=== PATIENT | male | born 1970 | race Caucasian/White ===

== ENCOUNTER 2018-02-21 15:27 | Inpatient (IN) | payer OTHER ==
[2018-02-21 17:04] VITALS: BMI 33.8
--- NOTE | 2018-02-21 17:50 | HP ---
Screened but not Admitted - Documentation of Visit Screened but not Admitted: Yes Left Prior to Completion of Assessment: No Insurance Authorization Denied: No Patient Does Not Meet Criteria for Admission: No Level of Care Recommended at this Time: ER Evaluation/Care (elevated BP with headache) Alternative Treatment/Long-Term Info Provided: No Additional Information/Explanation: Patient is a 47 yo male, presents today seeking detox for xanax, klonopin, and alcohol. Patient also uses cocaine and heroin. Patient is linked to [facility] : Promessa on 140 mg methadone, and was not medicated today. Patient c/o of headaches, presents very irritable and agiated. Reports hx of HTN and DM and non-adherence with medications. Reports suppose to take HCTZ, Procardia, Vasotec and metformin, does not recall doses or last time medication was taken, but express its been a few weeks. DENNIS: 0.00. v/s BP 119/108, P98.6, RR18, T98.6. utox: + sukhwinder, opi, oxy, MTD. BGM : 197. Patient sent to [facility] for further evaluation, transferred via [facility], endorsed to LIZZIE Merida and Dr. Mustafa
--- NOTE | 2018-02-21 22:40 | HP ---
CIWA Score - CIWA Score Nausea/Vomitin-Mild Nausea/No Vomiting Muscle Tremors: 4-Moderate,w/Arms Extend Anxiety: 4-Mod. Anxious/Guarded Agitation: 4-Moderately Restless Paroxysmal Sweats: 4-Forehead w/Sweat Beads Orientation: 0-Oriented Tacttile Disturbances: 0-None Auditory Disturbances: 2-Mild Harshness/Frighten Visual Disturbances: 2-Mild Sensitivity Headache: 0-None Present CIWA-Ar Total Score: 21 Admission ROS S - HPI Chief Complaint: C/O WITHDRAWAL SX'S SEEKING DETOX FROM OPIATES, ALCOHOL AND BENZO'S Allergies/Adverse Reactions: Allergies Allergy/AdvReac Type Severity Reaction Status Date / Time No Known Allergies Allergy Verified 02/21/18 18:23 History of Present Illness: 47 Y.O. MALE HERE ADMITTED TO DETOX FOR BENZO AND ALCOHOL DEPENDENCE. HE IS ALSO WITH HX/O OPIOID DEPENDENCE. CURRENTLY ON METHADONE 140 MG DAILY. REPORTS HE WAS NOT MEDICATED TODAY. HE IS REFERRED BACK FROM [facility] AFTER BEING SENT THEIR EARLIER FOR ELEVATED B/P WITH HEADACHE. HE HAS SINCE BEEN TREATED AND STABILIZED AND MEDICALLY CLEARED TO ADMIT TO DETOX. CLIENT REPORTS HX/O T2 DM, HTN, NON COMPLAINT WITH MEDICATIONS REGIMEN.THIS IS HIS FIRST VISIT [facility] BUT IS KNOWN TO OTHER INPATIENT PROGRAMS. REPORTS LAST DETOX WAS ABOUT 6-7 MONTHS AGO AT [facility].REPORTS LONGEST CLEAN TIME 10 YEARS WHILE INCARCERATED. DENIES HX/O DRUG OVERDOSE, PAST/PRESENT SI/HI/ATTEMPTS, SEIZURE D/O b/p 166/81 p-71 Medical Decision Making - Medical Decision Making 02/21/18 21:21 this 47 yo ,male BIBA form [facility] for HTN initial BP= 199/108 and had c/o of cluster headache 02/21/18 21:23 repeat BP= 149/85 labs reviewed, normal renal labs 02/21/18 21:31 tox screen positive cocaine,opiates I spoke with HORTICULTURE SUPERVISOR at [facility] ,Greg Brantley and this pt can be sent back 02/21/18 21:48 he has a h/o cluster headaches and now he feels much better after receiving the oxygen. CBC is within normal limits. His chemistries are unremarkable. His glucose is within normal limits Impression poorly controlled high blood pressure due to noncompliance with meds Polysubstance abuse. Plan discharge to [facility] for detox <Sadie Goodson - Last Filed: 02/21/18 21:49> *DC/Admit/Observation/Transfer - Attestations Scribe Attestion: Documentation prepared by Jose Alberto Fajardo, acting as medical review coordinator for Sadie Goodson MD. <Jose Alberto Fajardo - Last Filed: 02/21/18 20:34> <Sadie Goodson - Last Filed: 02/21/18 21:49> Diagnosis at time of Disposition: Poorly-controlled hypertension, Polysubstance abuse Migraine Qualifiers: Migraine type: unspecified Status migrainosus presence: without status migrainosus Intractability: not intractable Qualified Code(s): G43.909 - Migraine, unspecified, not intractable, without status migrainosus - Discharge Dispostion Disposition: HOME Condition at time of disposition: Good - Referrals Referrals: Verna Berumen MD [Primary Care Provider] - - Patient Instructions Printed Discharge Instructions: Type 2 Diabetes, DI for High Blood Pressure, DI for Cocaine Use Disorder Additional Instructions: please take your blood pressure medications - Post Discharge Activity Exam Limitations: No Limitations - Ebola screening Have you traveled outside of the country in the last 21 days: No (N) Have you had contact with anyone from an Ebola affected area: No Have you been sick,other than usual withdrawal symptoms: No Do you have a fever: No - Review of Systems Constitutional: Chills, Loss of Appetite, Malaise, Night Sweats, Changes in sleep EENT: reports: Nose Congestion (RUNNY) Respiratory: reports: No Symptoms reported Cardiac: reports: No Symptoms Reported GI: reports: Nausea, Poor Appetite, Abdominal cramping : reports: No Symptoms Reported Musculoskeletal: reports: Back Pain, Joint Pain, Neck Pain Integumentary: reports: Flushing, Sweating Neuro: reports: No Symptoms reported Endocrine: reports: Other (DM) Hematology: reports: No Symptoms Reported Psychiatric: reports: Anxious, Depressed Other Systems: Reviewed and Negative Patient History - Patient Medical History Hx Anemia: No Hx Asthma: No Hx Chronic Obstructive Pulmonary Disease (COPD): No Hx Cancer: No Hx Cardiac Disorders: No Hx Congestive Heart Failure: No Hx Hypertension: Yes (DOES NOT RECALL NAME OF MED) Hx Hypercholesterolemia: No Hx Pacemaker: No HX Cerebrovascular Accident: No Hx Seizures: No Hx Dementia: No Hx Diabetes: Yes (METFORMIN) Hx Gastrointestinal Disorders: No Hx Liver Disease: No Hx Genitourinary Disorders: No Hx Sexually Transmitted Disorders: No Hx Renal Disease (ESRD): No Hx Thyroid Disease: No Hx Human Immunodeficiency Virus (HIV): No Hx Hepatitis C: No Hx Depression: Yes Hx Suicide Attempt: No Hx Bipolar Disorder: No Hx Schizophrenia: No Other Medical History: ANXIETY - Patient Surgical History Past Surgical History: Yes Hx Orthopedic Surgery: Yes (R HIP REPLACEMNT, SPINALL FUSION TO C SPINE) Anesthesia Reaction: Yes - PPD History Previous Implant?: Yes Documented Results: Negative w/o proof Implanted On Prior [facility] Admission?: No PPD to be Administered?: Yes - Smoking Cessation Smoking history: Current every day smoker Have you smoked in the past 12 months: Yes Aproximately how many cigarettes per day: 30 Hx Chewing Tobacco Use: No Initiated information on smoking cessation: Yes 'Breaking Loose' booklet given: 02/21/18 - Substance & Tx. History Hx Alcohol Use: Yes Hx Substance Use: Yes Substance Use Type: Alcohol, Opiates (HEROIN), Prescribed (METHdone), Tranquilizers (XANAX/KLONOPINS) Hx Substance Use Treatment: Yes ([facility]) - Substances Abused beer Route: Oral Frequency: Daily Amount used: 1-6 PACK 24 OZ Age of first use: 13 Date of Last Use: 02/20/18 HEROIN Route: Inhalation Frequency: Daily Amount used: 10 BAGS Age of first use: 22 Date of Last Use: 02/20/18 XANAX Route: Oral Frequency: Daily Amount used: 2 STICKS Age of first use: 25 Date of Last Use: 02/20/18 COCAINE Route: Inhalation Frequency: Daily Amount used: 2GM Age of first use: 47 Date of Last Use: 02/20/18 Family Disease History - Family Disease History Family Disease History: Other: Grandparent (HTN, DM), Mother (HTN, DM), Sister ( HTN) Admission Physical Exam [facility]HS - Vital Signs Vital Signs: Vital Signs - 24 hr 02/21/18 17:02 Temperature 98.6 F Pulse Rate 68 Respiratory 18 Rate Blood Pressure 199/108 H - Physical General Appearance: Yes: Appropriately Dressed, Moderate Distress, Tremorous, Irritable, Sweating, Anxious HEENTM: Yes: EOMI, Normocephalic, Normal Voice, JUAN A, Pharynx Normal, Nasal Congestion (RUNNY NOSE) Respiratory: Yes: Chest Non-Tender, Lungs Clear, Normal Breath Sounds, No Respiratory Distress, No Accessory Muscle Use Neck: Yes: No masses,lesions,Nodules, Supple, Trachea in good position Breast: Yes: Breast Exam Deferred Cardiology: Yes: Regular Rhythm, Regular Rate, S1, S2 Abdominal: Yes: Normal Bowel Sounds, Non Tender, Soft Genitourinary: Yes: Other (NO C/O) Back: Yes: Normal Inspection Musculoskeletal: Yes: full range of Motion, Gait Steady, Joint Stiffness (NECK) Extremities: Yes: Normal Capillary Refill, Normal Range of Motion, Non-Tender, Tremors Neurological: Yes: Fully Oriented, Alert, Motor Strength 5/5, Depressed Affect Integumentary: Yes: Cold (COOL), Diaphoresis, Other (FLUSHED) Lymphatic: Yes: Within Normal Limits - Diagnostic (1) Methadone maintenance therapy patient Current Visit: Yes Status: Chronic (2) Cocaine abuse, uncomplicated Current Visit: Yes Status: Acute (3) Sedative, hypnotic or anxiolytic dependence with withdrawal, uncomplicated Current Visit: Yes Status: Acute (4) Opioid abuse, continuous Current Visit: Yes Status: Acute (5) Alcohol dependence with uncomplicated withdrawal Current Visit: Yes Status: Acute (6) Depressed affect Current Visit: Yes Status: Acute (7) HTN (hypertension) Current Visit: Yes Status: Chronic Qualifiers: Hypertension type: essential hypertension Qualified Code(s): I10 - Essential (primary) hypertension (8) Non-compliance Current Visit: Yes Status: Chronic (9) Diabetes Current Visit: Yes Status: Chronic Qualifiers: Diabetes mellitus type: type 2 (10) Migraine Current Visit: No Status: Acute Qualifiers: Migraine type: unspecified Status migrainosus presence: without status migrainosus Intractability: not intractable Qualified Code(s): G43.909 - Migraine, unspecified, not intractable, without status migrainosus Cleared for Admission [facility] - Detox or Rehab [facility] Level of Care: Medically Managed Detox Regimen/Protocol: Valium Claeared for Rehab Admission: No S Breath Alcohol Content Breath Alcohol Content: 0 Urine Drug Screen - Results Drug Screen Negative: No Urine Drug Screen Results: KHRIS-Cocaine, OPI-Opiates, BZO-Benzodiazepines, MTD- Methadone, OXY-Oxycodone
[2018-02-22] MEDS ORDERED: cloNIDine HCL 0.1 MG TABLET PO ONE (00:01)
[2018-02-22] MEDS ORDERED: P-EPHED 60MG/TRIPROLIDI 2.5MG TABLET PO PRN (00:02)
[2018-02-22] MEDS ORDERED: LOPERAMIDE HCL 2 MG CAPSULE PO PRN (00:02)
[2018-02-22] MEDS ORDERED: MAG HYDROX/AL HYDROX/SIMETH 30 ML UNIT-DOSE CUP PO PRN (00:02)
[2018-02-22] MEDS ORDERED: MAGNESIUM CITRATE 300 ML BOTTLE PO PRN (00:02)
[2018-02-22] MEDS ORDERED: diazePAM 5 MG TABLET PO ONE (00:02)
[2018-02-22] MEDS ORDERED: MENTHOL/PHENOL 1 EACH UD MM PRN (00:02)
[2018-02-22] MEDS ORDERED: NICOTINE POLACRILEX 4 MG GUM BC PRN (00:02)
[2018-02-22] MEDS ORDERED: MAGNESIUM HYDROX 2400MG/30ML ORAL SUSPENSION 30 ML CUP PO PRN (00:02)
[2018-02-22] MEDS ORDERED: IBUPROFEN 400 MG TABLET (FP) PO PRN (00:02)
[2018-02-22] MEDS ORDERED: ACETAMINOPHEN 325 MG TABLET (FP) PO PRN (00:02)
[2018-02-22] MEDS ORDERED: guaiFENesin/D-METHORPHAN HB 10 ML UNIT-DOSE CUPS PO PRN (00:02)
[2018-02-22] MEDS: diazePAM 5 MG TABLET PO SCH ×3 (06:20→22:08)
[2018-02-22] MEDS: diazePAM 5 MG TABLET PO PRN ×2 (08:02→11:33)
[2018-02-22] MEDS ORDERED: METHADONE HCL 10 MG TABLET PO ONE (09:08)
[2018-02-22] MEDS ORDERED: METHADONE 120 MG, METHADONE 20 MG PO ONE (09:30)
[2018-02-22] MEDS ORDERED: METHADONE HCL 10 MG TABLET ONE (09:41)
[2018-02-22] MEDS ORDERED: METHADONE HCL 40 MG DISPERSABLE TABLET ONE (09:41)
[2018-02-22] MEDS: PRENATAL VITAMINS W/ FOLIC ACID TABLET (FP) PO SCH (09:57)
[2018-02-22] MEDS: NICOTINE 21 MG/24 HOURS TOPICAL PATCH TD SCH (09:57)
--- NOTE | 2018-02-22 11:44 | PN ---
S CIWA - CIWA Score Nausea/Vomitin-No Nausea/No Vomiting Muscle Tremors: 4-Moderate,w/Arms Extend Anxiety: 3 Agitation: 3 Paroxysmal Sweats: 3 Orientation: 0-Oriented Tacttile Disturbances: 0-None Auditory Disturbances: 0-None Visual Disturbances: 0-None Headache: 0-None Present CIWA-Ar Total Score: 13 BHS Progress Note (SOAP) Subjective: agitation anxiety sweats interrupted sleep irritable I need my hypertension medication Objective: 02/22/18 11:43 Vital Signs Temperature 96.6 F L 02/22/18 09:19 Pulse Rate 83 02/22/18 09:19 Respiratory Rate 18 02/22/18 09:19 Blood Pressure 138/99 02/22/18 09:19 O2 Sat by Pulse Oximetry (%) Laboratory Tests 02/21/18 02/21/18 02/22/18 17:14 23:54 05:42 POC Glucometer 197 159 131 rest of labs pending [id number] ambulating no acute distress Assessment: 02/22/18 11:43 withdrawal sx Plan: continue detox increase fluids hyzarr ordered
[2018-02-22] MEDS ORDERED: HYDROCHLOROTHIAZIDE 12.5 MG CAPSULE (FP) PO SCH (11:45)
[2018-02-22] MEDS: LOSARTAN 50MG/HCTZ 12.5MG 1 TAB (FP) PO SCH (14:33)
--- NOTE | 2018-02-22 16:04 | EKG ---
Test Reason : Blood Pressure : / mmHG Vent. Rate : 079 BPM Atrial Rate : 079 BPM P-R Int : 126 ms QRS Dur : 112 ms QT Int : 414 ms P-R-T Axes : 046 076 063 degrees QTc Int : 474 ms NORMAL SINUS RHYTHM NORMAL ECG NO PREVIOUS ECGS AVAILABLE Confirmed by Yimi Chong MD ([id number]) on 02/22/2018 4:04:05 PM Referred By: Confirmed By:Yimi Chong MD
--- NOTE | 2018-02-22 16:46 | CONSULT ---
[facility] Psychiatric Consult - Data Date of interview: 02/22/18 Admission source: [facility] Identifying data: Patient is a 47 year old male, without children, domiciled, and is supported by disability benefits. This is patient's first admission to detox at [facility]. Patient admitted to for alcohol, cocaine, opiate, and benzodiazepine dependence. Substance Abuse History: Smoking Cessation. Smoking history: Current every day smoker. Have you smoked in the past 12 months: Yes. Aproximately how many cigarettes per day: 30. Hx Chewing Tobacco Use: No. Initiated information on smoking cessation: Yes. 'Breaking Loose' booklet given: 02/21/18. - Substance & Tx. History. Hx Alcohol Use: Yes. Hx Substance Use: Yes. Substance Use Type : Alcohol, Opiates (HEROIN), Prescribed (METHdone), Tranquilizers (XANAX/ KLONOPINS). Hx Substance Use Treatment: Yes ([facility]). - Substances Abused. beer. Route: Oral. Frequency: Daily. Amount used: 1-6 PACK 24 OZ. Age of first use: 13. Date of Last Use: 02/20/18. HEROIN. Route: Inhalation. Frequency: Daily. Amount used: 10 BAGS. Age of first use: 22. Date of Last Use: 02/20/18. XANAX. Route: Oral. Frequency: Daily. Amount used: 2 STICKS. Age of first use: 25. Date of Last Use: 02/20/18. COCAINE. Route: Inhalation. Frequency: Daily. Amount used: 2GM. Age of first use: 47. Date of Last Use: 02/20/18 Medical History: hypertension, diabetes, R hip replacement, Spinal fusion to cervical spine. Psychiatric History: Patient denies h/o psychiatric hospitalization and suicide attempt. He was receiving outpatient psychiatric care 1.5 years ago from a private psychiatrist in [place]. 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 He was prescribed klonopin and other agents he can't recall. Patient currently reports poor sleep. Physical/Sexual Abuse/Trauma History: denies. Mental Status Exam - Mental Status Exam Alert and Oriented to: Time, Place, Person Cognitive Function: Good Patient Appearance: Well Groomed Mood: Euthymic Affect: Mood Congruent Patient Behavior: Appropriate, Cooperative Speech Pattern: Appropriate Voice Loudness: Normal Thought Process: Intact, Goal Oriented Thought Disorder: Not Present Hallucinations: Denies Suicidal Ideation: Denies Homicidal Ideation: Denies Insight/Judgement: Poor Sleep: Poorly Appetite: Fair Muscle strength/Tone: Normal Gait/Station: Normal Psychiatric Findings - Problem List ([place] 1, 2,3) (1) Cocaine dependence Current Visit: Yes Status: Chronic (2) Alcohol dependence with uncomplicated withdrawal Current Visit: Yes Status: Acute (3) Sedative, hypnotic or anxiolytic dependence with withdrawal, uncomplicated Current Visit: Yes Status: Acute (4) Methadone maintenance therapy patient Current Visit: Yes Status: Chronic (5) Substance-induced sleep disorder Current Visit: Yes Status: Acute (6) Substance induced mood disorder Current Visit: Yes Status: Acute - Initial Treatment Plan Initial Treatment Plan: Psychoeducation provided. Detoxification in progress. Will d/c melatonin 5mg and order ambien 10mg qhs. Benefits and side effects discussed. Patient made aware of the risk of parasomnia. Verbal consent given.
[2018-02-22] MEDS: metFORMIN HCL 500 MG TABLET (FP) PO SCH (17:06)
[2018-02-22] MEDS: hydrOXYzine PAMOATE 50 MG CAPSULE (FP) PO PRN ×2 (17:06→22:08)
[2018-02-22] MEDS ORDERED: MELATONIN 5 MG TABLETS PO PRN (22:00)
[2018-02-22] MEDS ORDERED: PATIENT'S OWN MEDICATION (NON-FORMULARY) (Metformin Hcl [Metformin Hcl Er] 500 MG) PO SCH (22:00)
[2018-02-22] MEDS: ZOLPIDEM TARTRATE 10 MG TABLET (PARK CARE ONLY) PO PRN (22:08)
[2018-02-22] MEDS: THIAMINE HCL 100 MG TABLET (FP) PO SCH (22:08)
[2018-02-23] MEDS: diazePAM 5 MG TABLET PO PRN ×3 (03:00→20:50)
[2018-02-23] MEDS ORDERED: METHADONE HCL 10 MG TABLET ONE (04:29)
[2018-02-23] MEDS ORDERED: METHADONE HCL 40 MG DISPERSABLE TABLET ONE (04:29)
[2018-02-23] MEDS: METHADONE 120 MG, METHADONE 20 MG PO SCH (05:18)
[2018-02-23] MEDS: diazePAM 5 MG TABLET PO SCH ×3 (05:18→22:38)
[2018-02-23] MEDS ORDERED: METHADONE HCL 40 MG DISPERSABLE TABLET PO SCH (06:00)
[2018-02-23] MEDS: metFORMIN HCL 500 MG TABLET (FP) PO SCH ×2 (06:42→17:25)
--- NOTE | 2018-02-23 10:37 | PN ---
S CIWA - CIWA Score Nausea/Vomitin-No Nausea/No Vomiting Muscle Tremors: 3 Anxiety: 3 Agitation: 3 Paroxysmal Sweats: 3 Orientation: 0-Oriented Tacttile Disturbances: 0-None Auditory Disturbances: 0-None Visual Disturbances: 0-None Headache: 0-None Present CIWA-Ar Total Score: 12 BHS Progress Note (SOAP) Subjective: body aches sweats mild shakes interrupted sleep Objective: 02/23/18 10:39 Vital Signs Temperature 97.7 F 02/23/18 09:08 Pulse Rate 66 02/23/18 09:08 Respiratory Rate 16 02/23/18 09:08 Blood Pressure 108/73 02/23/18 09:08 O2 Sat by Pulse Oximetry (%) Laboratory Tests 02/21/18 02/21/18 02/22/18 17:14 23:54 05:42 POC Glucometer 197 159 131 RPR Titer 02/22/18 02/22/18 02/23/18 07:30 16:27 05:17 POC Glucometer 219 115 RPR Titer Nonreactive rest of lab were drawn at [facility] ED a couple of days ago, labs WNL aaox3 ambulating no acute distress Assessment: 02/23/18 10:56 withdrawal sx Plan: continue detox increase fluids
[2018-02-23] MEDS: LOSARTAN 50MG/HCTZ 12.5MG 1 TAB (FP) PO SCH (10:43)
[2018-02-23] MEDS: PRENATAL VITAMINS W/ FOLIC ACID TABLET (FP) PO SCH (10:43)
[2018-02-23] MEDS: NICOTINE 21 MG/24 HOURS TOPICAL PATCH TD SCH (10:43)
[2018-02-23] MEDS: hydrOXYzine PAMOATE 50 MG CAPSULE (FP) PO PRN ×3 (12:41→22:38)
[2018-02-23] MEDS ORDERED: cloNIDine HCL 0.1 MG TABLET PO ONE (15:19)
[2018-02-23] MEDS: cloNIDine HCL 0.1 MG TABLET PO SCH (22:38)
[2018-02-23] MEDS: THIAMINE HCL 100 MG TABLET (FP) PO SCH (22:38)
[2018-02-23] MEDS: ZOLPIDEM TARTRATE 10 MG TABLET (PARK CARE ONLY) PO PRN (22:38)
[2018-02-24] MEDS: diazePAM 5 MG TABLET PO PRN ×4 (04:02→21:20)
[2018-02-24] MEDS ORDERED: METHADONE HCL 40 MG DISPERSABLE TABLET ONE (04:59)
[2018-02-24] MEDS ORDERED: METHADONE HCL 10 MG TABLET ONE (05:00)
[2018-02-24] MEDS: METHADONE 120 MG, METHADONE 20 MG PO SCH (05:39)
[2018-02-24] MEDS: metFORMIN HCL 500 MG TABLET (FP) PO SCH ×2 (06:09→17:05)
[2018-02-24] MEDS: LOSARTAN 50MG/HCTZ 12.5MG 1 TAB (FP) PO SCH (10:31)
[2018-02-24] MEDS: NICOTINE 21 MG/24 HOURS TOPICAL PATCH TD SCH (10:31)
[2018-02-24] MEDS: diazePAM 5 MG TABLET PO SCH ×2 (10:31→22:23)
[2018-02-24] MEDS: PRENATAL VITAMINS W/ FOLIC ACID TABLET (FP) PO SCH (10:31)
[2018-02-24] MEDS: cloNIDine HCL 0.1 MG TABLET PO SCH ×2 (10:31→22:23)
--- NOTE | 2018-02-24 10:45 | PN ---
BHS Progress Note Note: c/o of body aches, fatigue, interrupted sleep, nausea and diarrhea Vital Signs Temperature 97.5 F L 02/24/18 09:52 Pulse Rate 90 02/24/18 09:52 Respiratory Rate 19 02/24/18 09:52 Blood Pressure 129/95 02/24/18 09:52 O2 Sat by Pulse Oximetry (%) Laboratory Last Values POC Glucometer 149 UNITS (80-120) 02/24/18 05:41 RPR Titer Nonreactive (NONREACTIVE) 02/22/18 07:30 Aox3 no distress no adventitious breath sounds ABD non-tender, non-distended full ROM ambulating in unit, + back pain withdrawal sx increase PO fluids ambulate flexeril PRN Ibuprofen PRN continue DM diet Patient educated on the importance to adhere to ADA diet and follow up with primary care provider upon discharge.
[2018-02-24] MEDS: CYCLOBENZAPRINE HCL 10 MG TABLET (FP) PO SCH ×2 (13:12→22:23)
--- NOTE | 2018-02-24 14:12 | PN ---
[place] Progress Note Note: patient wants to leave detox [facility] set up for him position available for him 02/25/18 patient agrees
[2018-02-24 17:23] VITALS: TEMP 97.5
[2018-02-24] MEDS: ZOLPIDEM TARTRATE 10 MG TABLET (PARK CARE ONLY) PO PRN (22:23)
[2018-02-24] MEDS: THIAMINE HCL 100 MG TABLET (FP) PO SCH (22:23)
[2018-02-25] MEDS: hydrOXYzine PAMOATE 50 MG CAPSULE (FP) PO PRN (02:40)
[2018-02-25] MEDS ORDERED: METHADONE HCL 40 MG DISPERSABLE TABLET ONE (04:59)
[2018-02-25] MEDS ORDERED: METHADONE HCL 10 MG TABLET ONE (05:00)
[2018-02-25] MEDS ORDERED: diazePAM 5 MG TABLET PO ONE (06:00)
[2018-02-25] MEDS: CYCLOBENZAPRINE HCL 10 MG TABLET (FP) PO SCH (07:00)
[2018-02-25] MEDS: metFORMIN HCL 500 MG TABLET (FP) PO SCH (07:00)
[2018-02-25] MEDS: METHADONE 120 MG, METHADONE 20 MG PO SCH (09:06)
[2018-02-25 09:38] VITALS: BP 149/93; PULSE 96
[2018-02-25] MEDS: NICOTINE 21 MG/24 HOURS TOPICAL PATCH TD SCH (09:48)
[2018-02-25] MEDS: PRENATAL VITAMINS W/ FOLIC ACID TABLET (FP) PO SCH (09:48)
--- NOTE | 2018-02-25 13:17 | DS ---
[facility] Detox Discharge Summary Admission Date: 02/21/18 Discharge Date: 02/25/18 - History Present History: Alcohol Dependence, MMTP - Physical Exam Results Vital Signs: Vital Signs Temperature 97.5 F L 02/25/18 09:38 Pulse Rate 96 H 02/25/18 09:38 Respiratory Rate 18 02/25/18 09:38 Blood Pressure 149/93 02/25/18 09:38 O2 Sat by Pulse Oximetry (%) Pertinent Admission Physical Exam Findings: PATIENT DISCHARGE TO [facility] FOR REHAB. PATIENT MEDICALLY STABLE. C/O LOOSE BM. MEDICATED WITH IMMODIUM. ALERT AND ORIENTED X 3. IN NAD. SKIN WARM AND DRY. AMB AD GRETA, FULL ROM. DENIES SI/HI. PATIENT ENCOURAGED TO COMPLETE WITH REHAB SERVICES TO PREVENT RELAPSE. DISCHARGE INSTRUCTIONS GIVEN TO PATIENT BY STAFF. Vital Signs Temperature 97.5 F L 02/25/18 09:38 Pulse Rate 96 H 02/25/18 09:38 Respiratory Rate 18 02/25/18 09:38 Blood Pressure 149/93 02/25/18 09:38 O2 Sat by Pulse Oximetry (%) - Treatment Hospital Course: Detox Protocol Followed, Detoxed Safely, Responded well, Discharged Condition Good, Rehab Referral Accepted - Medication Discharge Medications: Ambulatory Orders Sumatriptan Succinate [Imitrex -] 0 mg PO ASDIR 02/21/18 Metformin HCl [Metformin HCl ER] 500 mg PO BID #60 tab.er.24 02/24/18 Losartan 50Mg/Hctz 12.5MG [Hyzaar -] 1 tab PO DAILY #30 tablet 02/25/18 - AMA Did Patient Leave Against Medical Advice: No
[2018-02-25 17:12] LABS: URINE APPEARANCE CLEAR; URINE BILIRUBIN NEGATIVE (<2.0 mg/dL); URINE COLOR LTYELLOW; URINE GLUCOSE (UA) NEGATIVE (NEGATIVE); URINE KETONE NEGATIVE (NEGATIVE); URINE LEUK ESTERASE NEGATIVE (NEGATIVE); URINE NITRITE NEGATIVE (NEGATIVE); URINE PROTEIN NEGATIVE (NEGATIVE); URINE UROBILINOGEN NEGATIVE mg/dL (0.2-1.0)
[2018-02-26] MEDS ORDERED: diazePAM 5 MG TABLET PO SCH (10:00)
== END 2018-02-25 09:42 | disposition home or self-care (01) | DRG 773 ==
LOC: YASAS 15:27 → Y6N 23:32
PROC: HZ2ZZZZ Detoxification Services for Substance Abuse Treatment (ICD-10-PCS; principal; 2018-02-21)
DX: F10.230 Alcohol dependence with withdrawal, uncomplicated (principal); F11.20 Opioid dependence, uncomplicated; F13.230 Sedative, hypnotic or anxiolytic dependence with withdrawal, uncomplicated; F14.10 Cocaine abuse, uncomplicated; F17.210 Nicotine dependence, cigarettes, uncomplicated; F19.24 Other psychoactive substance dependence with psychoactive substance-induced mood disorder; F19.282 Other psychoactive substance dependence with psychoactive substance-induced sleep disorder; F32.9 Major depressive disorder, single episode, unspecified; I10 Essential (primary) hypertension; E11.9 Type 2 diabetes mellitus without complications; G43.909 Migraine, unspecified, not intractable, without status migrainosus; Z79.84 Long term (current) use of oral hypoglycemic drugs; Z91.14 Patient's other noncompliance with medication regimen; Z96.641 Presence of right artificial hip joint; Z98.1 Arthrodesis status
CPT/HCPCS: 36415; 81003; 82962; 86593; 93005; 93010; J0735

== ENCOUNTER 2018-02-21 18:06 | Emergency (ER) | payer OTHER ==
[2018-02-21 18:35] VITALS: PULSE 68; TEMP 98.6; BMI 33.8
[2018-02-21] MEDS ORDERED: HYDROCHLOROTHIAZIDE 25 MG TABLET (FP) PO ONE (19:27)
[2018-02-21] MEDS ORDERED: ACETAMINOPHEN 500 MG TABLET (FP) PO STA (19:28)
[2018-02-21] MEDS ORDERED: METOCLOPRAMIDE HCL INJECTION 10 MG/2 ML VIAL IVPUSH ONE (19:43)
[2018-02-21] MEDS ORDERED: ENALAPRIL MALEATE 5 MG TABLET (FP) PO ONE (19:44)
[2018-02-21] MEDS ORDERED: HYDROCHLOROTHIAZIDE 25 MG TABLET (FP) ONE (20:10)
[2018-02-21] MEDS ORDERED: ACETAMINOPHEN 325 MG TABLET (FP) ONE (20:10)
[2018-02-21 20:26] LABS: BASO % 0.9 % (0-2.0); EOS % 3.1 % (0-4.5); HEMATOCRIT 44.8 % (35.4-49); HEMOGLOBIN 14.7 GM/dL (11.7-16.9); LYMPH % 31.5 % (8-40); MCH 27.6 pg (25.7-33.7); MCHC 32.8 g/dl (32.0-35.9); MEAN PLT VOLUME 7.7 fl (7.5-11.1); MONO % 5.4 % (3.8-10.2); NEUT % 59.1 % (42.8-82.8); PLATELET COUNT 259 K/MM3 (134-434); RBC 5.33 M/mm3 (4.00-5.60); RDW 14.3 % (11.9-15.9); WHITE BLOOD COUNT 9.9 K/mm3 (4.0-10.0)
[2018-02-21] MEDS ORDERED: ENALAPRIL MALEATE 5 MG TABLET (FP) ONE (20:29)
--- NOTE | 2018-02-21 20:33 | PDOC ---
History of Present Illness - General History Source: Patient Exam Limitations: No Limitations - History of Present Illness Initial Comments: 02/21/18 20:34 The patient is a 47 year old male with a past medical history of hypertension, non insulin dependent diabetes, cluster headaches, and cocaine,xanax, klonopin, heroin abuse who presents to the emergency department for evaluation of elevated blood pressure. The patient reports arriving with a BP of 180/110. The patient has been non compliant with his medications. Patient reports he had been on procardia, vasotec, hydrochlorothiazide, and metformin. The patient reports his main concern is obtaining 140mg of methadone. He reports an associated symptom of a headache, which presents similarly to his cluster headaches. The patient denies chest pain, shortness of breath, and dizziness. Denies fevers , chills, nausea, vomiting, diarrhea, and constipation. Denies dysuria, hematuria, and urinary urgency/frequency. Allergies: NKDA Social History: Reported 1ppd cigarette smoking. Reports drinking 6 beers a day. Prior cocaine, xanax, and heroin use. Surgical History: Neck (2015) PCP: Dr. Verna Berumen <Jose Alberto Fajardo - Last Filed: 02/21/18 20:34> <Sadie Goodson - Last Filed: 02/21/18 21:49> - General Chief Complaint: Blood Pressure Problem Stated Complaint: Blood Pressure Problem Time Seen by Provider: 02/21/18 18:50 Past History <Jose Alberto Fajardo - Last Filed: 02/21/18 20:34> - Past Medical History COPD: No HTN: Yes (non compliant for at least 3 months. 02/2018) Psychiatric Problems: Yes (cocaine,xanax, klonopin, heroin abuse) - Suicide/Smoking/Psychosocial Hx Smoking History: Current every day smoker Have you smoked in the past 12 months: No Number of Cigarettes Smoked Daily: 20 Information on smoking cessation initiated: No Hx Alcohol Use: No Drug/Substance Use Hx: No Substance Use Type: None, Cocaine, Heroin, Opiates <Sadie Goodson - Last Filed: 02/21/18 21:49> - Past Medical History Allergies/Adverse Reactions: Allergies Allergy/AdvReac Type Severity Reaction Status Date / Time No Known Allergies Allergy Verified 02/21/18 18:23 Home Medications: Ambulatory Orders Metformin HCl [Metformin HCl ER] 500 mg PO BID 02/21/18 Sumatriptan Succinate [Imitrex] 0 mg PO ASDIR 02/21/18 Review of Systems - Review of Systems Able to Perform ROS?: Yes Comments:: CONSTITUTIONAL: Absent: fever, chills, diaphoresis, generalized weakness, malaise, loss of appetite HEENT: Absent: rhinorrhea, nasal congestion, throat pain, throat swelling, difficulty swallowing, mouth swelling, ear pain, eye pain, visual Changes CARDIOVASCULAR: Absent: chest pain, syncope, palpitations, irregular heart rate, lightheadedness , peripheral edema RESPIRATORY: Absent: cough, shortness of breath, dyspnea with exertion, orthopnea, wheezing, stridor, hemoptysis GASTROINTESTINAL: Absent: abdominal pain, abdominal distension, nausea, vomiting, diarrhea, constipation, melena, hematochezia GENITOURINARY: Absent: dysuria, frequency, urgency, hesitancy, hematuria, flank pain, genital pain MUSCULOSKELETAL: Absent: myalgia, arthralgia, joint swelling SKIN: Absent: rash, itching, pallor HEMATOLOGIC/IMMUNOLOGIC: Absent: easy bleeding, easy bruising, lymphadenopathy, frequent infections ENDOCRINE: Absent: unexplained weight gain, unexplained weight loss, heat intolerance, cold intolerance NEUROLOGIC: (+)headache. Absent: focal weakness or paresthesias, dizziness, unsteady gait, seizure, mental status changes, bladder or bowel incontinence PSYCHIATRIC: Absent: anxiety, depression, suicidal or homicidal ideation, hallucinations. <Jose Alberto Fajardo - Last Filed: 02/21/18 20:34> *Physical Exam - Vital Signs Last Vital Signs Temp Pulse Resp BP Pulse Ox 98.6 F 68 16 179/99 H 100 02/21/18 18:26 02/21/18 18:26 02/21/18 18:26 02/21/18 18:26 02/21/18 18:26 - Physical Exam Comments: GENERAL: Large, well developed, well nourished. Awake and alert. No acute distress. HEENT: Normocephalic, atraumatic. PERRLA, EOMI. No conjunctival pallor. Sclera are non- icteric. Moist mucous membranes. Oropharynx is clear. NECK: Supple. Full ROM. No JVD. Carotid pulses 2+ and symmetric, without bruits. No thyromegaly. No lymphadenopathy. CARDIOVASCULAR: Regular rate and rhythm. No murmurs, rubs, or gallops. Distal pulses are 2+ and symmetric. PULMONARY: No evidence of respiratory distress. Lungs clear to auscultation bilaterally. No wheezing, rales or rhonchi. ABDOMINAL: Soft. Non-tender. Non-distended. No rebound or guarding. No organomegaly. Normoactive bowel sounds. MUSCULOSKELETAL Normal range of motion at all joints. No bony deformities or tenderness. No CVA tenderness. EXTREMITIES: No cyanosis. No clubbing. No edema. No calf tenderness. SKIN: Warm and dry. Normal capillary refill. No rashes. No jaundice. NEUROLOGICAL: Alert, awake, appropriate. Cranial nerves 2-12 intact. No deficits to light touch and temperature in face, upper extremities and lower extremities. No motor deficits in the in face, upper extremities and lower extremities. Normoreflexic in the upper and lower extremities. Normal speech. Toes are down- going bilaterally. Gait is normal without ataxia. PSYCHIATRIC: Cooperative. Good eye contact. Appropriate mood and affect. <Jose Alberto Fajardo - Last Filed: 02/21/18 20:34> - Vital Signs Last Vital Signs Temp Pulse Resp BP Pulse Ox 98.6 F 68 16 179/99 H 100 02/21/18 18:26 02/21/18 18:26 02/21/18 18:26 02/21/18 18:26 02/21/18 18:26 <Sadie Goodson - Last Filed: 02/21/18 21:49> ED Treatment Course - LABORATORY CBC & Chemistry Diagram: 02/21/18 20:15 02/21/18 20:15 - Medications Given in the ED: ED Medications Discontinued Medications Generic Name Dose Route Start Last Admin Trade Name Freq PRN Reason Stop Dose Admin Acetaminophen 975 mg 02/21/18 19:28 02/21/18 20:00 Tylenol - PO 02/21/18 19:29 975 mg ONCE STA Administration Diphenhydramine HCl 25 mg 02/21/18 19:43 02/21/18 20:32 Benadryl Injection - IVPB 02/21/18 19:44 Not Given ONCE ONE Enalapril Maleate 5 mg 02/21/18 19:44 02/21/18 20:30 Vasotec - PO 02/21/18 19:45 5 mg ONCE ONE Administration Hydrochlorothiazide 25 mg 02/21/18 19:27 02/21/18 20:00 Hctz - PO 02/21/18 19:28 25 mg ONCE ONE Administration Metoclopramide HCl 10 mg 02/21/18 19:43 02/21/18 20:32 Reglan Injection - IVPUSH 02/21/18 19:44 Not Given ONCE ONE <Jose Alberto Fajardo - Last Filed: 02/21/18 20:34> - LABORATORY CBC & Chemistry Diagram: 02/21/18 20:15 02/21/18 20:15 - Medications Given in the ED: ED Medications Discontinued Medications Generic Name Dose Route Start Last Admin Trade Name Yuryq PRN Reason Stop Dose Admin Acetaminophen 975 mg 02/21/18 19:28 02/21/18 20:00 Tylenol - PO 02/21/18 19:29 975 mg ONCE STA Administration Diphenhydramine HCl 25 mg 02/21/18 19:43 02/21/18 20:32 Benadryl Injection - IVPB 02/21/18 19:44 Not Given ONCE ONE Enalapril Maleate 5 mg 02/21/18 19:44 02/21/18 20:30 Vasotec - PO 02/21/18 19:45 5 mg ONCE ONE Administration Hydrochlorothiazide 25 mg 02/21/18 19:27 02/21/18 20:00 Hctz - PO 02/21/18 19:28 25 mg ONCE ONE Administration Metoclopramide HCl 10 mg 02/21/18 19:43 02/21/18 20:32 Reglan Injection - IVPUSH 02/21/18 19:44 Not Given ONCE ONE <Sadie Goodson - Last Filed: 02/21/18 21:49> Medical Decision Making - Medical Decision Making 02/21/18 21:21 this 47 yo ,male BIBA form [facility] for HTN initial BP= 199/108 and had c/o of cluster headache 02/21/18 21:23 repeat BP= 149/85 labs reviewed, normal renal labs 02/21/18 21:31 tox screen positive cocaine,opiates I spoke with ANALYTICS CONSULTANT at [facility] ,Greg Brantley and this pt can be sent back 02/21/18 21:48 he has a h/o cluster headaches and now he feels much better after receiving the oxygen. CBC is within normal limits. His chemistries are unremarkable. His glucose is within normal limits Impression poorly controlled high blood pressure due to noncompliance with meds Polysubstance abuse. Plan discharge to [facility] for detox <Sadie Goodson - Last Filed: 02/21/18 21:49> *DC/Admit/Observation/Transfer - Attestations Scribe Attestion: Documentation prepared by Jose Alberto Fajardo, acting as medical and health services manager for Sadie Goodson MD. <Jose Alberto Fajardo - Last Filed: 02/21/18 20:34> <Sadie Goodson - Last Filed: 02/21/18 21:49> Diagnosis at time of Disposition: Poorly-controlled hypertension, Polysubstance abuse Migraine Qualifiers: Migraine type: unspecified Status migrainosus presence: without status migrainosus Intractability: not intractable Qualified Code(s): G43.909 - Migraine, unspecified, not intractable, without status migrainosus - Discharge Dispostion Disposition: HOME Condition at time of disposition: Good - Referrals Referrals: Verna Berumen MD [Primary Care Provider] - - Patient Instructions Printed Discharge Instructions: Type 2 Diabetes, DI for High Blood Pressure, DI for Cocaine Use Disorder Additional Instructions: please take your blood pressure medications - Post Discharge Activity
[2018-02-21] MEDS ORDERED: IBUPROFEN 600 MG TABLET (FP) PO ONE ×2 (20:35→20:55)
[2018-02-21 20:37] LABS: URINE APPEARANCE CLEAR; URINE BILIRUBIN NEGATIVE (<2.0 mg/dL); URINE COLOR LTYELLOW; URINE GLUCOSE (UA) NEGATIVE (NEGATIVE); URINE KETONE NEGATIVE (NEGATIVE); URINE LEUK ESTERASE NEGATIVE (NEGATIVE); URINE NITRITE NEGATIVE (NEGATIVE); URINE PROTEIN NEGATIVE (NEGATIVE); URINE UROBILINOGEN NEGATIVE mg/dL (0.2-1.0)
[2018-02-21 20:47] LABS: ALBUMIN 3.4 g/dl (3.4-5.0); ALK PHOS 136 U/L (45-117); ANION GAP 8 MMOL/L (8-16); BILIRUBIN,TOTAL 0.5 mg/dL (0.2-1); BLOOD UREA NITROGEN 10 mg/dL (7-18); CALCIUM 9.2 mg/dL (8.5-10.1); CHLORIDE 104 mmol/L (98-107); CO2 29 mmol/L (21-32); CREATININE 0.7 mg/dL (0.55-1.3); GLUCOSE,RANDOM 92 mg/dL (74-106); POTASSIUM 4.3 mmol/L (3.5-5.1); SGOT/AST 17 U/L (15-37); SGPT/ALT 22 U/L (13-61); SODIUM 141 mmol/L (136-145); TOT PROT 6.6 g/dl (6.4-8.2)
[2018-02-21 20:57] VITALS: BP 149/85
[2018-02-21 21:17] LABS: PHENCYCLIDINE,URINE NEGATIVE ng/ml (CUTOFF=25); URINE AMPHETAMINES NEGATIVE ng/ml (CUTOFF=500); URINE BARBITURATES NEGATIVE ng/ml (CUTOFF=200); URINE BENZODIAZEPINES NEGATIVE ng/ml (CUTOFF=200)
[2018-02-21 21:26] LABS: COCAINE, UR POSITIVE ng/ml (CUTOFF=300); METHADONE, UR POSITIVE ng/ml (CUTOFF=300); OPIATES, URI POSITIVE ng/ml (CUTOFF=300)
== END 2018-02-21 23:21 | disposition home or self-care (01) ==
LOC: JER 18:06
PROC: 3E033GC Introduction of Other Therapeutic Substance into Peripheral Vein, Percutaneous Approach (ICD-10-PCS; principal; 2018-02-21)
DX: G43.909 Migraine, unspecified, not intractable, without status migrainosus (principal); I10 Essential (primary) hypertension; E11.9 Type 2 diabetes mellitus without complications; Z79.84 Long term (current) use of oral hypoglycemic drugs; F11.10 Opioid abuse, uncomplicated; F14.10 Cocaine abuse, uncomplicated; F13.10 Sedative, hypnotic or anxiolytic abuse, uncomplicated
CPT/HCPCS: 36415; 80053; 80307; 81003; 85025; 96374; 99281-25

== ENCOUNTER 2019-06-26 11:28 | Inpatient (IN) | payer OTHER ==
[2019-06-26 13:02] VITALS: BMI 33.3
--- NOTE | 2019-06-26 13:37 | HP ---
COWS - Scale Resting Pulse: 0= MO 80 or Below Sweatin= No chills or Flushing Restless Observation: 0= Sits Still CIWA Score Nausea/Vomitin Muscle Tremors: 3 Anxiety: 4-Mod. Anxious/Guarded Agitation: 2 Paroxysmal Sweats: No Perspiration Orientation: 0-Oriented Tacttile Disturbances: 0-None Auditory Disturbances: 0-None Visual Disturbances: 0-None Headache: 0-None Present CIWA-Ar Total Score: 11 - Admission Criteria OASAS Guidelines: Admission for Medically Managed Detox: Requires at least one of the followin. CIWA greater than 12 2. Seizures within the past 24 hours 3. Delirium tremens within the past 24 hours 4. Hallucinations within the past 24 hours 5. Acute intervention needed for co occurring medical disorder 6. Acute intervention needed for co occurring psychiatric disorder 7. Severe withdrawal that cannot be handled at a lower level of care (continued vomiting, continued diarrhea, abnormal vital signs) requiring intravenous medication and/or fluids 8. Admitting History and Physical - Admission Chief Complaint: Mr. Soares presents to [facility] requesting admission for detox from alcohol. He states "I need to detox" from alcohol and benzodiazepines. History of Present Illness: Mr. Berrios is a 48 yo gentleman who presents to [facility] requesting admission to detox for alcohol and benzodiazepines. PMH: HTN, admits to med noncompliance, cervical fracture, cluster headaches none in 5 years Substance use history Alcohol: first use at age 13 y, last use: this am, quantity: 9x 22 ounce beer almost every day, spirits once per week/2 oz. No history of seizures. Black outs in his 20's. 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 Was on a variety of antidepressants: Klonopin, other meds he can not recall - Smoking History Smoking history: Current every day smoker Have you smoked in the past 12 months: Yes Aproximately how many cigarettes per day: 20 - Alcohol/Substance Use Hx Alcohol Use: Yes Admission ROS S - HPI Allergies/Adverse Reactions: Allergies Allergy/AdvReac Type Severity Reaction Status Date / Time No Known Allergies Allergy Verified 06/26/19 12:45 Exam Limitations: No Limitations - Ebola screening Have you traveled outside of the country in the last 21 days: No Have you had contact with anyone from an Ebola affected area: No Have you been sick,other than usual withdrawal symptoms: No Do you have a fever: No - Review of Systems Constitutional: Other (70 lb weight loss since 2016, diet and exercise) EENT: reports: Blurred Vision Respiratory: reports: No Symptoms reported Cardiac: reports: No Symptoms Reported GI: reports: Constipated : reports: No Symptoms Reported Musculoskeletal: reports: Other (chronic back and neck pain, limited range of motion in neck, hip pain: left pending replacement) Integumentary: reports: No Symptoms Reported Neuro: reports: Paresthesia (chronic numbness riht thumb, right ring and pinky. No forearm numbness. Chronic toe numbness bilaterally, pinky and ring right and left foot. Ambulates with a rolling walker) Endocrine: reports: Intolerance to Cold (pain increases with cold weather) Hematology: reports: No Symptoms Reported Psychiatric: reports: Depressed Patient History - Patient Medical History Hx Anemia: No Hx Asthma: No Hx Chronic Obstructive Pulmonary Disease (COPD): No Hx Cancer: No Hx Cardiac Disorders: No Hx Congestive Heart Failure: No Hx Hypertension: Yes Hx Hypercholesterolemia: No Hx Pacemaker: No HX Cerebrovascular Accident: No Hx Seizures: No Hx Dementia: No Hx Diabetes: Yes Hx Gastrointestinal Disorders: No Hx Liver Disease: No Hx Genitourinary Disorders: No Hx Sexually Transmitted Disorders: No Hx Renal Disease (ESRD): No Hx Thyroid Disease: No Hx Human Immunodeficiency Virus (HIV): No Hx Hepatitis C: No Hx Depression: Yes Hx Suicide Attempt: No Hx Bipolar Disorder: No Hx Schizophrenia: No - Patient Surgical History Past Surgical History: Yes Hx Neurologic Surgery: No Hx Cataract Extraction: No Hx Cardiac Surgery: No Hx Lung Surgery: No Hx Breast Surgery: No Hx Breast Biopsy: No Hx Abdominal Surgery: No Hx Appendectomy: No Hx Cholecystectomy: No Hx Genitourinary Surgery: No Hx Section: No Hx Orthopedic Surgery: Yes (R HIP REPLACEMNT, [id number] FUSION TO C SPINE) Other Surgical History: SPINAL FUSION Anesthesia Reaction: Yes - PPD History Previous Implant?: Yes Documented Results: Negative w/proof Date: 02/24/18 - Smoking Cessation Smoking history: Current every day smoker Have you smoked in the past 12 months: Yes Aproximately how many cigarettes per day: 20 Hx Chewing Tobacco Use: No Initiated information on smoking cessation: Yes 'Breaking Loose' booklet given: 06/26/19 - Substances abused Alcohol Substance route: Oral Frequency: Daily Amount used: 6-9 CANS OF BEER Age of first use: 13 Date of last use: 06/26/19 Benzodiazepine (Klonopin) Substance route: Oral Frequency: Daily Amount used: 4 MG Age of first use: 22 Date of last use: 06/24/19 Cocaine Substance route: Oral Frequency: Daily Amount used: 4 -10 MG Age of first use: 13 Date of last use: 06/25/19 Other Other (specify): VALIUM Substance route: Oral Frequency: 1-2 times per week Amount used: 4-5 PILLS Age of first use: 22 Date of last use: 06/16/19 Admission Physical Exam [facility] - Vital Signs Vital Signs: Vital Signs - 24 hr 06/26/19 12:54 Temperature 97.1 F L Pulse Rate 92 H Respiratory 20 Rate Blood Pressure 161/110 H - Physical General Appearance: Yes: Mild Distress (anxious), Obese, Anxious HEENTM: Yes: Within Normal Limits Respiratory: Yes: Lungs Clear, Normal Breath Sounds Neck: Yes: Other (decreased range of motion with extension>flexion, and bilateral lateral rotation) Breast: Yes: Breast Exam Deferred Cardiology: Yes: Regular Rate, S1, S2 Abdominal: Yes: Normal Bowel Sounds, Non Tender, Flat Genitourinary: Yes: Other (deferred) Back: Yes: Normal Inspection Musculoskeletal: Yes: Within Normal Limits Extremities: Yes: Other (tatoo right side of neck, right lateral leg) Neurological: Yes: Fully Oriented, Other (spastic gait) Integumentary: Yes: Within Normal Limits Lymphatic: Yes: Within Normal Limits - Diagnostic (1) Cocaine abuse, uncomplicated Current Visit: Yes Status: Acute (2) Depressed affect Current Visit: Yes Status: Acute (3) Methadone maintenance therapy patient Current Visit: Yes Status: Chronic (4) Alcohol dependence with uncomplicated withdrawal Current Visit: Yes Status: Resolved Cleared for Admission S - Detox or Rehab [facility] Level of Care: Medically Managed Breathalyzer - Breathalyzer Breathalyzer: 0 Urine Drug Screen - Test Device Lot number: [id number] Expiration date: 04/17/21 - Control Is test valid?: Yes - Results Drug screen NEGATIVE: No Urine drug screen results: KHRIS-Cocaine, MTD-Methadone, BZO-Benzodiazepines Inpatient Rehab Admission - Rehab Decision to Admit Inpatient rehab admission?: No
[2019-06-26] MEDS ORDERED: MAG HYDROX/AL HYDROX/SIMETH 30 ML UNIT-DOSE CUP PO PRN (13:53)
[2019-06-26] MEDS ORDERED: MAGNESIUM HYDROX 2400MG/30ML ORAL SUSPENSION 30 ML CUP PO PRN (13:53)
[2019-06-26] MEDS ORDERED: hydrOXYzine PAMOATE 25 MG CAPSULE (FP) PO PRN (13:53)
[2019-06-26] MEDS ORDERED: BISMUTH SUBSALICYLATE 262 MG/15 ML BTL PO PRN (13:53)
[2019-06-26] MEDS ORDERED: MELATONIN 5 MG TABLETS PO PRN (13:53)
[2019-06-26] MEDS ORDERED: ACETAMINOPHEN 325 MG TABLET (FP) PO PRN ×2 (13:53)
[2019-06-26] MEDS ORDERED: MAGNESIUM CITRATE 300 ML BOTTLE PO PRN (13:53)
[2019-06-26] MEDS ORDERED: MENTHOL/PHENOL 1 EACH UD MM PRN (13:53)
--- NOTE | 2019-06-26 14:51 | EKG ---
Test Reason : Blood Pressure : / mmHG Vent. Rate : 074 BPM Atrial Rate : 074 BPM P-R Int : 138 ms QRS Dur : 102 ms QT Int : 386 ms P-R-T Axes : 049 061 051 degrees QTc Int : 428 ms NORMAL SINUS RHYTHM POSSIBLE LEFT ATRIAL ENLARGEMENT BORDERLINE ECG WHEN COMPARED WITH ECG OF 22-FEB-2018 00:19, NO SIGNIFICANT CHANGE WAS FOUND Confirmed by Jerry Tyson ([id number]) on 06/26/2019 2:51:03 PM Referred By: Confirmed By:Jerry Tyson
[2019-06-26] MEDS: chlordiazePOXIDE HCL 25 MG CAPSULE PO PRN (15:43)
[2019-06-26] MEDS: NICOTINE 21 MG/24 HOURS TOPICAL PATCH TD SCH (15:46)
[2019-06-26 16:29] LABS: HEMATOCRIT 46.1 % (35.4-49); HEMOGLOBIN 15.3 GM/dL (11.7-16.9); MCH 28.6 pg (25.7-33.7); MCHC 33.2 g/dl (32.0-35.9); MEAN PLT VOLUME 8.3 fl (7.5-11.1); PLATELET COUNT 316 K/MM3 (134-434); RBC 5.36 M/mm3 (4.00-5.60); RDW 13.7 % (11.9-15.9); WHITE BLOOD COUNT 9.7 K/mm3 (4.0-10.0)
[2019-06-26 16:54] LABS: ALBUMIN 3.9 g/dl (3.4-5.0); BILIRUBIN,TOTAL 0.5 mg/dL (0.2-1); BLOOD UREA NITROGEN 17.2 mg/dL (7-18); CALCIUM 9.4 mg/dL (8.5-10.1); CREATININE 0.9 mg/dL (0.55-1.3); POTASSIUM 4.8 mmol/L (3.5-5.1); TOT PROT 7.5 g/dl (6.4-8.2)
[2019-06-26] MEDS: chlordiazePOXIDE HCL 25 MG CAPSULE PO SCH ×2 (18:10→22:33)
[2019-06-26] MEDS: METHOCARBAMOL 500 MG TABLET PO PRN (21:20)
[2019-06-26] MEDS: IBUPROFEN 400 MG TABLET (FP) PO PRN (21:20)
[2019-06-26] MEDS: THIAMINE HCL 100 MG TABLET (FP) PO SCH (22:33)
[2019-06-27] MEDS: chlordiazePOXIDE HCL 25 MG CAPSULE PO SCH ×4 (05:59→23:28)
[2019-06-27] MEDS: METHADONE HCL 40 MG DISPERSABLE TABLET PO SCH (05:59)
[2019-06-27] MEDS: METHOCARBAMOL 500 MG TABLET PO PRN (06:00)
--- NOTE | 2019-06-27 09:03 | CONSULT ---
[facility] Psychiatric Consult - Data Date of interview: 06/27/19 Admission source: [facility] Identifying data: Patient is a 48 year old [place] male, without children, unemployed, homeless, and is supported with [facility]. This is one of multiple admissions for patient. Patient admitted to for alcohol and cocaine dependence. Substance Abuse History: Smoking Cessation. Smoking history: Current every day smoker. Have you smoked in the past 12 months: Yes. Aproximately how many cigarettes per day: 20. Hx Chewing Tobacco Use: No. Initiated information on smoking cessation: Yes. 'Breaking Loose' booklet given: 06/26/19. - Substances abused. Alcohol. Substance route: Oral. Frequency: Daily. Amount used: 6-9 CANS OF BEER. Age of first use: 13. Date of last use: . Benzodiazepine (Klonopin). Substance route: Oral. Frequency: Daily. Amount used: 4 MG. Age of first use: 22. Date of last use: 06/24/19. Cocaine. Substance route: Oral. Frequency: Daily. Amount used: 4 -10 MG. Age of first use: 13. Date of last use: 06/25/19. Other. Other (specify): VALIUM. Substance route: Oral. Frequency: 1-2 times per week. Amount used: 4- 5 PILLS. Age of first use: 22. Date of last use: 06/16/19 Medical History: hypertension, diabetes, R hip replacement, Spinal fusion to cervical spine. Psychiatric History: Patient denies h/o psychiatric hospitalization and suicide attempt. He was receiving outpatient psychiatric care 2 years ago from a private psychiatrist in [place]. 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 He was prescribed klonopin and other agents he can't recall. Ms. Soares would then discontinue treatment after he started to receive [facility] and has not seen a psychiartist since. At present patient reports difficulty sleeping. Physical/Sexual Abuse/Trauma History: denies. Additional Comment: Attends [facility] Methadone clinic (200mg) Mental Status Exam - Mental Status Exam Alert and Oriented to: Time, Place, Person Cognitive Function: Good Patient Appearance: Well Groomed Mood: Euthymic Affect: Appropriate Patient Behavior: Appropriate, Cooperative Speech Pattern: Appropriate Voice Loudness: Normal Thought Process: Intact, Goal Oriented Thought Disorder: Not Present Hallucinations: Denies Suicidal Ideation: Denies Homicidal Ideation: Denies Insight/Judgement: Poor Sleep: Poorly Appetite: Poor Muscle strength/Tone: Normal Gait/Station: Normal Psychiatric Findings - Problem List ([place] 1, 2,3) (1) Cocaine abuse, uncomplicated Status: Acute (2) Methadone maintenance therapy patient Status: Chronic (3) Alcohol dependence with uncomplicated withdrawal Status: Acute (4) Substance induced mood disorder Status: Suspected (5) Substance-induced sleep disorder Status: Acute - Initial Treatment Plan Initial Treatment Plan: Psychoeducation provided. Detoxification in progress. Will order Belsomra 10mg HS PRN. Benefits and side effects discussed. Verbal consent given.
[2019-06-27] MEDS ORDERED: PRENATAL VITAMINS W/ FOLIC ACID TABLET (FP) PO SCH (10:00)
[2019-06-27] MEDS ORDERED: LOSARTAN 50MG/HCTZ 12.5MG 1 TAB (FP) PO SCH (10:00)
[2019-06-27] MEDS: IBUPROFEN 400 MG TABLET (FP) PO PRN (10:39)
[2019-06-27] MEDS: NICOTINE 21 MG/24 HOURS TOPICAL PATCH TD SCH (10:44)
--- NOTE | 2019-06-27 13:06 | PN ---
[facility] CIWA - CIWA Score Nausea/Vomitin-No Nausea/No Vomiting Muscle Tremors: 3 Anxiety: 3 Agitation: 0-Normal Activity Paroxysmal Sweats: 2 Orientation: 0-Oriented Tacttile Disturbances: 0-None Auditory Disturbances: 0-None Visual Disturbances: 0-None Headache: 2-Mild CIWA-Ar Total Score: 10 S Progress Note (SOAP) Subjective: 48 years old male admitted on 06/26/19 for alcohol and benzo withdrawal sx management treating with librium detox regiment report taking xanax every day for left hip pain and left hip replacement surgery had been scheduled ambulating with walker steady slow gait received methadone 200 mg po today report loose stool imodium 4 mg po x 1 now report insomnia belsomra prn encourage patient wants xanax which he take at home bought from "[facility] risks of methadone mixed with benzo substance Objective: 06/27/19 13:09 Vital Signs Temperature 98.6 F 06/27/19 08:46 Pulse Rate 76 06/27/19 08:46 Respiratory Rate 18 06/27/19 08:46 Blood Pressure 141/87 06/27/19 08:46 O2 Sat by Pulse Oximetry (%) Laboratory Last Values WBC 9.7 K/mm3 (4.0-10.0) 06/26/19 14:25 RBC 5.36 M/mm3 (4.00-5.60) 06/26/19 14:25 Hgb 15.3 GM/dL (11.7-16.9) 06/26/19 14:25 Hct 46.1 % (35.4-49) 06/26/19 14:25 MCV 86.0 fl (80-96) 06/26/19 14:25 MCH 28.6 pg (25.7-33.7) 06/26/19 14:25 MCHC 33.2 g/dl (32.0-35.9) 06/26/19 14:25 RDW 13.7 % (11.9-15.9) 06/26/19 14:25 Plt Count 316 K/MM3 (134-434) D 06/26/19 14:25 MPV 8.3 fl (7.5-11.1) 06/26/19 14:25 Sodium 142 mmol/L (136-145) 06/26/19 14:25 Potassium 4.8 mmol/L (3.5-5.1) 06/26/19 14:25 Chloride 105 mmol/L (98-107) 06/26/19 14:25 Carbon Dioxide 32 mmol/L (21-32) 06/26/19 14:25 Anion Gap 5 MMOL/L (8-16) L 06/26/19 14:25 BUN 17.2 mg/dL (7-18) 06/26/19 14:25 Creatinine 0.9 mg/dL (0.55-1.3) 06/26/19 14:25 Est GFR (CKD-EPI)AfAm 115.83 06/26/19 14:25 Est GFR (CKD-EPI)NonAf 99.94 06/26/19 14:25 Random Glucose 106 mg/dL (74-106) 06/26/19 14:25 Fasting Glucose 176 mg/dL (74-106) H 06/27/19 07:30 Calcium 9.4 mg/dL (8.5-10.1) 06/26/19 14:25 Total Bilirubin 0.5 mg/dL (0.2-1) 06/26/19 14:25 AST 20 U/L (15-37) 06/26/19 14:25 ALT 35 U/L (13-61) 06/26/19 14:25 Alkaline Phosphatase 189 U/L (45-117) H 06/26/19 14:25 Total Protein 7.5 g/dl (6.4-8.2) 06/26/19 14:25 Albumin 3.9 g/dl (3.4-5.0) 06/26/19 14:25 RPR Titer Nonreactive (NONREACTIVE) 06/26/19 14:25 lab noted 06/27/19 13:12 long history of diabetes treated with metformin 500 mg po bid ac resume metformin and bgm bid ac Assessment: 06/27/19 13:13 alcohol and benzo withdrawal Plan: librium regiment
[2019-06-27] MEDS ORDERED: LOPERAMIDE HCL 2 MG CAPSULE PO ONE (14:00)
[2019-06-27] MEDS: chlordiazePOXIDE HCL 25 MG CAPSULE PO PRN ×2 (14:59→19:23)
[2019-06-27] MEDS: metFORMIN HCL 500 MG TABLET (FP) PO SCH (17:11)
[2019-06-27] MEDS ORDERED: TRIMETHOBENZAMIDE HCL 200MG/2ML INJ IM PRN (17:28)
--- NOTE | 2019-06-27 21:25 | PN ---
S Progress Note Note: S: Pt c/o n/v x3 today, diarrhea x3, shakes, anxiety, and chills. O: Vital Signs 06/27/19 16:44 Temperature 98.5 F Pulse Rate 69 Respiratory 16 Rate Blood Pressure 112/69 Vital signs Left arm 193/107, HR 110, Resp 20, Temp 101.5. BP right arm 199/125. A:AOX3, in no acute respiratory distress. Tremolous, appears anxious, Fever, elevated BP P: Send to ED for evaluation. Verbal report given to Dr. Mcclain at [facility] ED.
[2019-06-27 21:26] VITALS: PULSE 110; TEMP 101.5
[2019-06-27 21:27] VITALS: BP 199/125
[2019-06-27] MEDS ORDERED: SUVOREXANT 10 MG TABLET PO PRN (22:00)
[2019-06-27] MEDS: THIAMINE HCL 100 MG TABLET (FP) PO SCH (23:28)
[2019-06-28] MEDS ORDERED: chlordiazePOXIDE HCL 25 MG CAPSULE PO SCH (05:00)
[2019-06-28] MEDS: metFORMIN HCL 500 MG TABLET (FP) PO SCH (06:07)
[2019-06-28] MEDS: METHADONE HCL 40 MG DISPERSABLE TABLET PO SCH (06:08)
[2019-06-29] MEDS ORDERED: chlordiazePOXIDE HCL 10 MG CAPSULE PO PRN
[2019-06-29] MEDS ORDERED: chlordiazePOXIDE HCL 10 MG CAPSULE PO SCH (05:00)
[2019-06-30] MEDS ORDERED: chlordiazePOXIDE HCL 10 MG CAPSULE PO SCH (05:00)
[2019-07-01] MEDS ORDERED: chlordiazePOXIDE HCL 10 MG CAPSULE PO ONE (05:00)
== END 2019-06-27 11:59 | disposition short-term general hospital (02) | DRG 773 ==
LOC: YASAS 11:28 → Y3N 14:24
PROVIDERS: ADMIT Allergy & Immunology; ATTEND Allergy & Immunology
PROC: HZ2ZZZZ Detoxification Services for Substance Abuse Treatment (ICD-10-PCS; principal; 2019-06-26)
DX: F10.230 Alcohol dependence with withdrawal, uncomplicated (principal); F11.20 Opioid dependence, uncomplicated; F13.230 Sedative, hypnotic or anxiolytic dependence with withdrawal, uncomplicated; F14.10 Cocaine abuse, uncomplicated; F17.210 Nicotine dependence, cigarettes, uncomplicated; F41.9 Anxiety disorder, unspecified; F32.9 Major depressive disorder, single episode, unspecified; F19.24 Other psychoactive substance dependence with psychoactive substance-induced mood disorder; F19.282 Other psychoactive substance dependence with psychoactive substance-induced sleep disorder; I10 Essential (primary) hypertension; E11.9 Type 2 diabetes mellitus without complications; R11.2 Nausea with vomiting, unspecified; R50.9 Fever, unspecified; R19.7 Diarrhea, unspecified; R25.1 Tremor, unspecified; E66.9 Obesity, unspecified; Z68.33 Body mass index [BMI] 33.0-33.9, adult; Z98.1 Arthrodesis status
CPT/HCPCS: 36415; 80053; 82947; 82962; 85027; 86593; 93005; 93010

== ENCOUNTER 2019-06-27 21:57 | Inpatient (IN) | payer OTHER ==
--- NOTE | 2019-06-27 22:09 | PDOC ---
History of Present Illness - General Stated Complaint: VOMITING - History of Present Illness Initial Comments: 06/27/19 22:08 Mr. Soares is a 48 yo male w/ pmh of HTN and substance abuse (on methadone) who presents for evaluation from [facility] where he is currently admitted for detox. Patient reports using alcohol and xanax until yesterday morning when he presented to detox. Patient reports he has had 1 day of abdominal pain with 2 episodes of diarrhea in bed yesterday and multiple episodes of vomiting today with additional generalized abdominal pain. Patient believes he is "withdrawing hard." Also reports a fever earlier today. The patient denies chest pain, shortness of breath, headache and dizziness. Denies constipation. Denies dysuria, frequency, urgency and hematuria. Past History - Past Medical History Allergies/Adverse Reactions: Allergies Allergy/AdvReac Type Severity Reaction Status Date / Time No Known Allergies Allergy Verified 06/26/19 12:45 Home Medications: Ambulatory Orders metFORMIN HCL [Metformin ER Osmotic] 500 mg PO BID #60 tab.er.24 02/24/18 Losartan 50Mg/Hctz 12.5MG [Hyzaar -] 1 tab PO DAILY #30 tablet 02/25/18 Methadone [Dolophine -] 200 mg PO DAILY 06/26/19 Anemia: No Asthma: No Cancer: No Cardiac Disorders: No CVA: No COPD: No CHF: No Dementia: No Diabetes: Yes GI Disorders: No Disorders: No HTN: Yes Hypercholesterolemia: No Kidney Stones: No Liver Disease: No Psychiatric Problems: Yes (cocaine,xanax, klonopin, heroin abuse) Seizures: No Thyroid Disease: No - Surgical History Abdominal Surgery: No Appendectomy: No Cardiac Surgery: No Cholecystectomy: No Lung Surgery: No Neurologic Surgery: No Orthopedic Surgery: Yes (R HIP REPLACEMNT, [id number] FUSION TO C SPINE) - Reproductive History Testicular Surgery: No - Psycho Social/Smoking Cessation Hx Smoking History: Current every day smoker Have you smoked in the past 12 months: Yes Number of Cigarettes Smoked Daily: 20 'Breaking Loose' booklet given: 06/26/19 Hx Alcohol Use: Yes Drug/Substance Use Hx: Yes Substance Use Type: Alcohol, Opiates (HEROIN), Prescribed (METHdone), Tranquilizers (XANAX/KLONOPINS) Hx Substance Use Treatment: Yes Review of Systems - Review of Systems Comments:: 06/27/19 22:08 GENERAL/CONSTITUTIONAL: +Generalized fever. No weakness. HEAD, EYES, EARS, NOSE AND THROAT: No change in vision. No ear pain or discharge. No sore throat. CARDIOVASCULAR: No chest pain or shortness of breath RESPIRATORY: No cough, wheezing, or hemoptysis. GASTROINTESTINAL: +N/V/D as described. Generalized abdominal pain. GENITOURINARY: No dysuria, frequency, or change in urination. MUSCULOSKELETAL: No joint or muscle swelling or pain. No neck or back pain. SKIN: No rash NEUROLOGIC: No headache, vertigo, loss of consciousness, or change in strength/ sensation. ENDOCRINE: No increased thirst. No abnormal weight change HEMATOLOGIC/LYMPHATIC: No anemia, easy bleeding, or history of blood clots. ALLERGIC/IMMUNOLOGIC: No hives or skin allergy. *Physical Exam - Physical Exam 06/27/19 22:08 GENERAL: +Patient visibly shaking on exam. Awake, alert, and fully oriented, in no acute distress HEAD: No signs of trauma, normocephalic, atraumatic EYES: PERRLA, EOMI, sclera anicteric, conjunctiva clear ENT: Auricles normal inspection, hearing grossly normal, nares patent, oropharynx clear without exudates. Moist mucosa NECK: Normal ROM, supple, no lymphadenopathy, JVD, or masses LUNGS: No distress, speaks full sentences, clear to auscultation bilaterally HEART: Regular rate and rhythm, normal S1 and S2, no murmurs, rubs or gallops, peripheral pulses normal and equal bilaterally. ABDOMEN: +Diffuse abdominal TTP. Soft, normoactive bowel sounds. No guarding, no rebound. No masses EXTREMITIES: Normal inspection, Normal range of motion, no edema. No clubbing or cyanosis. NEUROLOGICAL: Cranial nerves II through XII grossly intact. Normal speech, normal gait, no focal sensorimotor deficits SKIN: Warm, Dry, normal turgor, no rashes or lesions noted. ED Treatment Course - LABORATORY CBC & Chemistry Diagram: 06/27/19 22:21 06/27/19 22:21 Medical Decision Making - Medical Decision Making 06/27/19 22:51 Mr. Soares is a 48 yo male w/ pmh as described who presents for evaluation of withdrawal symptoms. Patient agitated with tremors on exam; CIWA score 18. Patient given ativan for treatment of symptoms. Patient lab evaluation pending. Patient will likely be admitted for treatment of withdrawal. 06/27/19 23:17 Patient labs grossly wnl as below. EKG normal sinus. Regular rate, regular rhythm, normal access, normal intervals, no ST elevations or depressions. Patient exam improved following ativan. Patient will be admitted for withdrawal care. 06/27/19 23:40 Patient admitted to hospitalist team. Discharge - Discharge Information Problems reviewed: Yes Clinical Impression/Diagnosis: Alcohol withdrawal Qualifiers: Complication of substance-induced condition: with unspecified complication Qualified Code(s): F10.239 - Alcohol dependence with withdrawal, unspecified - Admission Yes - Follow up/Referral - Patient Discharge Instructions - Post Discharge Activity
[2019-06-27] MEDS ORDERED: SODIUM CHLORIDE 1,000 ML IV STA (22:15)
[2019-06-27] MEDS ORDERED: LORazepam 2 MG/ML SDV VIAL ONE (22:32)
--- NOTE | 2019-06-27 22:33 | PDOC ---
Attending Attestation - Resident Resident Name: Addison Feliz - ED Attending Attestation I have performed the following: I have examined & evaluated the patient, The case was reviewed & discussed with the resident, I agree w/resident's findings & plan - HPI HPI: 06/27/19 22:30 see resident hpi - Physicial Exam PE: 06/27/19 22:31 agree with resident exam - Medical Decision Making 06/27/19 22:32 48-year-old male with history of benzodiazepine and alcohol dependence presents with elevated blood pressure and CIWA score of 18 requiring admission Ativan 2 mg IV given on arrival We will admit to medical service for further management CIWA Score Nausea/Vomitin Muscle Tremors: 4-Moderate,w/Arms Extend Anxiety: 4-Mod. Anxious/Guarded Agitation: 4-Moderately Restless Paroxysmal Sweats: No Perspiration Orientation: 0-Oriented Tacttile Disturbances: 1-Very Mild Itch/Numbness Auditory Disturbances: 0-None Visual Disturbances: 0-None Headache: 0-None Present CIWA-Ar Total Score: 18 - Admission Criteria OASAS Guidelines: Admission for Medically Managed Detox: Requires at least one of the followin. CIWA greater than 12 2. Seizures within the past 24 hours 3. Delirium tremens within the past 24 hours 4. Hallucinations within the past 24 hours 5. Acute intervention needed for co occurring medical disorder 6. Acute intervention needed for co occurring psychiatric disorder 7. Severe withdrawal that cannot be handled at a lower level of care (continued vomiting, continued diarrhea, abnormal vital signs) requiring intravenous medication and/or fluids 8. Patient presents the following: CIWA greater than 12, Severe withdrawal requiring intravenous medication and/or fluids Admission Criteria Met: Admission criteria met
[2019-06-27 22:40] LABS: BASO % 0.4 % (0-2.0); HEMATOCRIT 45.8 % (35.4-49); HEMOGLOBIN 14.9 GM/dL (11.7-16.9); MCHC 32.6 g/dl (32.0-35.9); MEAN PLT VOLUME 7.9 fl (7.5-11.1); MONO % 3.4 % (3.8-10.2); NEUT % 84.2 % (42.8-82.8); PLATELET COUNT 208 K/MM3 (134-434); RBC 5.33 M/mm3 (4.00-5.60); RDW 13.6 % (11.9-15.9); WHITE BLOOD COUNT 7.4 K/mm3 (4.0-10.0)
[2019-06-27 23:10] LABS: ALBUMIN 3.3 g/dl (3.4-5.0); BILIRUBIN,TOTAL 0.5 mg/dL (0.2-1); CALCIUM 8.4 mg/dL (8.5-10.1); CREATININE 0.8 mg/dL (0.55-1.3); POTASSIUM 4.4 mmol/L (3.5-5.1); TOT PROT 6.6 g/dl (6.4-8.2)
[2019-06-27] MEDS ORDERED: ONDANSETRON 4 MG/2 ML VIAL IVPUSH ONE (23:17)
[2019-06-27] MEDS ORDERED: ONDANSETRON 4 MG/2 ML VIAL ONE (23:18)
[2019-06-28] MEDS ORDERED: MELATONIN 5 MG TABLETS PO ONE (00:20)
--- NOTE | 2019-06-28 00:20 | PN ---
Teaching Attending Note Name of Resident: Tony Segal ATTENDING PHYSICIAN STATEMENT I saw and evaluated the patient. I reviewed the resident's note and discussed the case with the resident. I agree with the resident's findings and plan as documented. SUBJECTIVE: This is a 48 year old man with a history of HTN, type 2 DM, depression, cluster headaches, substance abuse who was sent to the ED from [facility] for fever and elevated BP. He was admitted to [facility] on 06/26 for alcohol and benzodiazepine detox. He was started on Librium detox. Today he had nausea, vomiting, diarrhea, chills, tremors, anxiety. He was noted to have BP 199/125, HR 110, and temp 101.5. Currently he has no complaints. OBJECTIVE: Vital Signs Period Temp Pulse Resp BP Sys/Kern Pulse Ox Last 24 Hr 98.9 F-99.9 F 96-102 17-18 162-175/92-115 98 GENERAL: Tremulous HEART: S1S2, RRR LUNGS: Clear ABDOMEN: Obese, soft, non-tender, non-distended, normal BS EXTREMITIES: No edema Laboratory Tests 06/27/19 06/27/19 22:21 22:21 WBC 7.4 RBC 5.33 Hgb 14.9 Hct 45.8 MCV 86.0 MCH 28.0 MCHC 32.6 RDW 13.6 Plt Count 208 D MPV 7.9 Absolute Neuts (auto) 6.2 Neutrophils % 84.2 H D Lymphocytes % 10.0 D Monocytes % 3.4 L Eosinophils % 2.0 Basophils % 0.4 Nucleated RBC % 0 Sodium 136 Potassium 4.4 Chloride 100 Carbon Dioxide 28 Anion Gap 7 L BUN 18.0 Creatinine 0.8 Est GFR (CKD-EPI)AfAm 121.57 Est GFR (CKD-EPI)NonAf 104.89 Random Glucose 115 H Calcium 8.4 L Total Bilirubin 0.5 AST 78 H ALT 64 H Alkaline Phosphatase 186 H Total Protein 6.6 Albumin 3.3 L Home Medications Medication Instructions Recorded metFORMIN HCL [Metformin ER 500 mg PO BID #60 tab.er.24 02/24/18 Osmotic] Losartan 50Mg/Hctz 12.5MG [Hyzaar 1 tab PO DAILY #30 tablet 02/25/18 -] Methadone [Dolophine -] 200 mg PO DAILY 06/26/19 ASSESSMENT AND PLAN: This is a 48 year old man with a history of HTN, type 2 DM, depression, cluster headaches, substance abuse who presented to the ED from [facility] for fever and elevated BP. 1. Alcohol and benzodiazepine withdrawal - Continue detox 2. Continuous alcohol and benzodiazepine dependence - Thiamine, folic acid, multivitamin 3. Opioid dependence - Continue Methadone 4. SIRS (fever, tachycardia) secondary to withdrawal - No evidence of infection 5. HTN - Continue losartan, HCTZ 6. Type 2 DM - Hold metformin - Fingersticks with Novolog sliding scale - Check HbA1c 7. Hepatic transaminitis secondary to alcohol use
[2019-06-28] MEDS ORDERED: diphenhydrAMINE HCL 25 MG CAPSULE (FP) PO ONE (00:21)
[2019-06-28] MEDS ORDERED: FOLIC ACID INJECTION - 1 MG, THIAMINE HCL 100 MG, MULTIVIT INJECTION ADULT 10 ML in SOD... IVPB ONE (00:21)
--- NOTE | 2019-06-28 01:55 | HP ---
CHIEF COMPLAINT: fevers, abdominal pain PCP: Dr. Alejandra HISTORY OF PRESENT ILLNESS: Hamzah Soares is a 48 year old male with a past medical history of HTN, cluster headaches, depression, borderline DM, depression, hx of cervical fx and fusion repair, substance abuse (alcohol, benzos, on methadone maintenance). Patient was admitted at [facility] for detox from alcohol and benzodiazepines and was found to have an elevated temperature, abdominal pain, diarrhea, tremors and was sent to [facility] ED for further evaluation. Patient endorsed that he has tremors, had abdominal pain but is now improved, has a headache, nausea with one episode of NBNB vomiting, chronic hip pain, and pain that shoots down his left leg from his hip. Also endorses some phonophobia. Denies cp, sob, cough, difficulty swallowing, visual changes, disorientation, dysuria, hematuria, frequency, urgency, hematochezia. States he has never had seizures or DTs in the past but has had "serious withdrawals". Denies recent travel, sick contacts. ER course was notable for: (1) Tmax 99.9 (at [facility] 101.5), BP 175/115 (at [facility] 199/125) (2) Ca 8.4 corrected 8.9, AST 78, ALT 64, Alk phos 186 (3) CXR with no noted acute pathology Recent Travel: denies PAST MEDICAL HISTORY: as above PAST SURGICAL HISTORY: cervical fusion, R hip replacement Social History: Smokinppd smoking Alcohol: 9-12 22oz beers daily Drugs: Xanax 5 (2mg) tabs, occasionally other benzos Klonopin, Ativan, on MMTP Currently does not work, on SSI. Allergies No Known Allergies Allergy (Verified 06/26/19 12:45) HOME MEDICATIONS: Home Medications Medication Instructions Recorded metFORMIN HCL [Metformin ER 500 mg PO BID #60 tab.er.24 02/24/18 Osmotic] Losartan 50Mg/Hctz 12.5MG [Hyzaar 1 tab PO DAILY #30 tablet 02/25/18 -] Methadone [Dolophine -] 200 mg PO DAILY 06/26/19 REVIEW OF SYSTEMS CONSTITUTIONAL: fever, loss of appetite Absent: chills, diaphoresis, generalized weakness, malaise, weight change HEENT: Absent: rhinorrhea, nasal congestion, throat pain, throat swelling, difficulty swallowing, visual changes CARDIOVASCULAR: Absent: chest pain, syncope, palpitations, irregular heart rate, lightheadedness , peripheral edema RESPIRATORY: Absent: cough, shortness of breath, dyspnea with exertion, orthopnea, wheezing GASTROINTESTINAL: abdominal pain, nausea, vomiting, diarrhea Absent: abdominal distension, constipation, melena, hematochezia GENITOURINARY: Absent: dysuria, frequency, urgency, hesitancy, hematuria, flank pain, MUSCULOSKELETAL: arthralgia (L hip), back pain Absent: myalgia, joint swelling, neck pain SKIN: Absent: rash, itching, pallor HEMATOLOGIC/IMMUNOLOGIC: Absent: easy bleeding, easy bruising, lymphadenopathy, frequent infections ENDOCRINE: Absent: unexplained weight gain, unexplained weight loss, heat intolerance, cold intolerance NEUROLOGIC: headache Absent: focal weakness or paresthesias, dizziness, unsteady gait, seizure, mental status changes, bladder or bowel incontinence PSYCHIATRIC: Absent: anxiety, depression, suicidal or homicidal ideation, hallucinations. PHYSICAL EXAMINATION Vital Signs - 24 hr 06/27/19 06/27/19 06/27/19 22:16 22:30 23:24 Temperature 98.9 F 99.9 F H 99.9 F H Pulse Rate 102 H Pulse Rate [ 96 H Apical] Respiratory 17 18 Rate Blood Pressure 175/115 H Blood Pressure 162/92 [Left Arm] O2 Sat by Pulse 98 Oximetry (%) GENERAL: Awake, alert, and fully oriented, in no acute distress. Tremorous. HEAD: Normal with no signs of trauma. EYES: Pupils equal, round and sluggish reaction to light, extraocular movements intact, sclera anicteric, conjunctiva clear. EARS, NOSE, THROAT: Oropharynx clear without exudates. Dry mucous membranes. NECK: Normal range of motion, supple without lymphadenopathy, JVD. LUNGS: Breath sounds equal, clear to auscultation bilaterally. No wheezes, and no crackles. No accessory muscle use. HEART: Regular rate and rhythm, normal S1 and S2 without murmur, rub. ABDOMEN: Soft, nontender, not distended, normoactive bowel sounds, no guarding, no rebound, no masses. MUSCULOSKELETAL: Normal range of motion at all joints. Painful to palpation at L hip. UPPER EXTREMITIES: 2+ pulses, warm, well-perfused. No cyanosis. No clubbing. No peripheral edema. LOWER EXTREMITIES: 2+ pulses, warm, well-perfused. No calf tenderness. No peripheral edema. NEUROLOGICAL: Cranial nerves II-XII intact. 5/5 muscle strength upper and lower extremities. Unstable wide based gait. PSYCHIATRIC: Cooperative. Good eye contact. Depressed mood and affect. Pressured speech. SKIN: Warm, dry, normal turgor, no rashes or lesions noted, normal capillary refill. Laboratory Results - last 24 hr 06/27/19 06/27/19 22:21 22:21 WBC 7.4 RBC 5.33 Hgb 14.9 Hct 45.8 MCV 86.0 MCH 28.0 MCHC 32.6 RDW 13.6 Plt Count 208 D MPV 7.9 Absolute Neuts (auto) 6.2 Neutrophils % 84.2 H D Lymphocytes % 10.0 D Monocytes % 3.4 L Eosinophils % 2.0 Basophils % 0.4 Nucleated RBC % 0 Sodium 136 Potassium 4.4 Chloride 100 Carbon Dioxide 28 Anion Gap 7 L BUN 18.0 Creatinine 0.8 Est GFR (CKD-EPI)AfAm 121.57 Est GFR (CKD-EPI)NonAf 104.89 Random Glucose 115 H Calcium 8.4 L Total Bilirubin 0.5 AST 78 H ALT 64 H Alkaline Phosphatase 186 H Total Protein 6.6 Albumin 3.3 L ASSESSMENT/PLAN: Hamzah Soares is a 48 year old male with a past medical history of HTN, cluster headaches, depression, borderline DM, depression, hx of cervical fx and fusion repair, substance abuse (alcohol, benzos, on methadone maintenance) admitted for withdrawal symptoms and monitoring for DTs. Alcohol and Benzodiazepine Withdrawal - CIWA 16 - Ativan protocol initiated - continue to monitor vital signs and neurochecks - fall, seizure precautions - banana bag - MVI, thiamine, folate - addiction medicine consulted - can return to [facility] when medically cleared - diarrhea, fever, HTN all likely components of acute withdrawal Opiate Abuse on Methadone - on 200mg of methadone as confirmed on 2/3 by [facility] Nursing HTN - resume home medications - clonidine as needed in acute withdrawal phase Elevated AST/ALT - likely in the setting of alcohol and benzo abuse - continue to monitor Borderline DM - on home metformin?, reconcile medications - A1c check - BGM, ISS, if not diabetic consider stopping DVT PPx - Lovenox 40 mg subq daily FEN - banana bag x1 - continue to monitor electrolytes and replete as necessary - sodium controlled diet Dispo - admit to med-surg Family Medical History Family History: Denies Visit type - Emergency Visit Emergency Visit: Yes ED Registration Date: 06/27/19 Care time: The patient presented to the Emergency Department on the above date and was hospitalized for further evaluation of their emergent condition. - New Patient This patient is new to me today: Yes Date on this admission: 06/28/19 - Critical Care Critical Care patient: No
[2019-06-28] MEDS: LORazepam 1 MG TABLET PO SCH ×3 (04:57→17:09)
[2019-06-28 05:13] VITALS: BMI 30.4
[2019-06-28] MEDS ORDERED: ONDANSETRON 4 MG/2 ML VIAL IVPUSH PRN (06:00)
[2019-06-28] MEDS: INSULIN SLIDING SCALE (NOVOLOG) 1 VIAL SQ SCH ×4 (06:09→22:24)
[2019-06-28] MEDS: METHADONE HCL 40 MG DISPERSABLE TABLET PO SCH (08:20)
[2019-06-28] MEDS: FOLIC ACID 1 MG TABLET (FP) PO SCH (09:05)
[2019-06-28] MEDS: THIAMINE HCL 100 MG TABLET (FP) PO SCH (09:06)
[2019-06-28] MEDS: ENOXAPARIN NA (PORCINE) 40 MG/0.4 ML DISP.SYRIN SQ SCH (09:06)
[2019-06-28] MEDS: MULTIVITAMINS (DAILY MVI) TABLET (FP) PO SCH (09:06)
[2019-06-28 09:39] LABS: BASO % 0.4 % (0-2.0); EOS % 1.4 % (0-4.5); HEMATOCRIT 42.9 % (35.4-49); HEMOGLOBIN 14.3 GM/dL (11.7-16.9); LYMPH % 15.4 % (8-40); MCH 28.2 pg (25.7-33.7); MCHC 33.3 g/dl (32.0-35.9); MEAN CELL VOLUME 84.7 fl (80-96); MEAN PLT VOLUME 7.9 fl (7.5-11.1); MONO % 3.5 % (3.8-10.2); NEUT % 79.3 % (42.8-82.8); PLATELET COUNT 195 K/MM3 (134-434); RBC 5.06 M/mm3 (4.00-5.60); RDW 13.3 % (11.9-15.9); WHITE BLOOD COUNT 6.2 K/mm3 (4.0-10.0)
[2019-06-28] MEDS ORDERED: cloNIDine HCL 0.1 MG TABLET PO SCH (10:00)
[2019-06-28] MEDS ORDERED: LOSARTAN 50MG/HCTZ 12.5MG 1 TAB (FP) PO SCH (10:00)
[2019-06-28 10:14] LABS: BILIRUBIN,TOTAL 1.3 mg/dL (0.2-1); BLOOD UREA NITROGEN 15.2 mg/dL (7-18); CALCIUM 8.2 mg/dL (8.5-10.1); CREATININE 0.8 mg/dL (0.55-1.3); MAGNESIUM 2.2 mg/dL (1.8-2.4); PHOSPHOROUS 3.8 mg/dL (2.5-4.9); POTASSIUM 4.1 mmol/L (3.5-5.1); TOT PROT 5.8 g/dl (6.4-8.2)
--- NOTE | 2019-06-28 11:38 | EKG ---
Test Reason : Blood Pressure : / mmHG Vent. Rate : 091 BPM Atrial Rate : 091 BPM P-R Int : 134 ms QRS Dur : 100 ms QT Int : 378 ms P-R-T Axes : 045 056 041 degrees QTc Int : 464 ms NORMAL SINUS RHYTHM POSSIBLE LEFT ATRIAL ENLARGEMENT BORDERLINE ECG WHEN COMPARED WITH ECG OF 26-JUN-2019 14:17, NO SIGNIFICANT CHANGE WAS FOUND Confirmed by Yimi Chong MD ([id number]) on 06/28/2019 11:37:36 AM Referred By: Confirmed By:Yimi Chong MD
--- NOTE | 2019-06-28 14:50 | CONSULT ---
Consult Detox [facility] Reason for Current Admission/Consult: Patient with alcohol dependence with withdrawals Referred by:: africa wade - History History of Present Illness: Hamzah Soares is a 48 year old male with a past medical history of HTN, cluster headaches, depression, borderline DM, depression, hx of cervical fx and fusion repair, substance abuse (alcohol, benzos, on methadone maintenance). Patient was admitted at [facility] for detox from alcohol and benzodiazepines and was found to have an elevated temperature, abdominal pain, diarrhea, tremors and was sent to [email or web address] ED for further evaluation. Patient endorsed that he has tremors, had abdominal pain but is now improved, has a headache, nausea with one episode of NBNB vomiting, chronic hip pain, and pain that shoots down his left leg from his hip. ER course was notable for: (1) Tmax 99.9 (at [facility] 101.5), BP 175/115 (at [facility] 199/125) (2) Ca 8.4 corrected 8.9, AST 78, ALT 64, Alk phos 186 (3) CXR with no noted acute pathology - History Source History Provided By: Patient Limitations to Obtaining History: No Limitations - Alcohol/Substance Use Hx Alcohol Use: Yes - Current Drug/Alcohol Use Alcohol Route: Oral Frequency: Daily Amount used: 8-10 beers daily Age of first use: 11 Date of Last Use: 06/27/19 - Past Medical History Cardio/Vascular: Yes: HTN Endocrine: Yes: Diabetes Mellitus - Past Surgical History Additional Surgical History: cervical spine surgery and fusion - Significant Medical Findings: Patient seen in bed complaining of abdominal pains and generalized body aches. Patient febrile at 100.5 F He hasn't had any work up yet for abdominal pain. Cor: S1 S2, no murmurs perceived Abd: Diffuse tenderness but no guarding or rebound, hyperactive bowel sounds. CIWA Score - CIWA Score Nausea/Vomitin Muscle Tremors: 4-Moderate,w/Arms Extend Anxiety: 4-Mod. Anxious/Guarded Agitation: 4-Moderately Restless Paroxysmal Sweats: No Perspiration Orientation: 0-Oriented Tacttile Disturbances: 1-Very Mild Itch/Numbness Auditory Disturbances: 0-None Visual Disturbances: 0-None Headache: 0-None Present CIWA-Ar Total Score: 18 Assessment Plan - Plan Plan: 1. Alcohol Dependence with withdrawals: Patient can be continued on the Ativan Detox protocol Patient is still not yet stable. 2. Fever of unknown origin: Patient needs a work up and to try to find a focus of the fever whether that is infection or if it is GB disease. Non-specific abdominal pains with fever, consider abdominal sono for possible causes. Once patient is medically stable and if he has not yet completed detox, then he can be transferred back to [facility] to finish detox. Dr. Gonzalez - Medication Detox Regimen/Protocol: Aliya
--- NOTE | 2019-06-28 14:50 | PN ---
Physical Exam: SUBJECTIVE: Patient seen and examined OBJECTIVE: Vital Signs Period Temp Pulse Resp BP Sys/Kern Pulse Ox Last 24 Hr 98.9 F-100.3 F 76-102 17-20 136-175/69-115 97-100 GENERAL: The patient is awake, alert, and fully oriented, in no acute distress. HEAD: Normal with no signs of trauma. EYES: PERRL, extraocular movements intact, sclera anicteric, conjunctiva clear. No ptosis. ENT: Ears normal, nares patent, oropharynx clear without exudates, moist mucous membranes. NECK: Trachea midline, full range of motion, supple. LUNGS: Breath sounds equal, clear to auscultation bilaterally, no wheezes, no crackles, no accessory muscle use. HEART: Regular rate and rhythm, S1, S2 without murmur, rub or gallop. ABDOMEN: Soft, nontender, nondistended, normoactive bowel sounds, no guarding, no rebound, no hepatosplenomegaly, no masses. EXTREMITIES: 2+ pulses, warm, well-perfused, no edema. NEUROLOGICAL: Cranial nerves II through XII grossly intact. Normal speech, gait not observed. PSYCH: Normal mood, normal affect. SKIN: Warm, dry, normal turgor, no rashes or lesions noted Laboratory Results - last 24 hr 06/27/19 06/27/19 06/28/19 22:21 22:21 06:45 WBC 7.4 RBC 5.33 Hgb 14.9 Hct 45.8 MCV 86.0 MCH 28.0 MCHC 32.6 RDW 13.6 Plt Count 208 D MPV 7.9 Absolute Neuts (auto) 6.2 Neutrophils % 84.2 H D Lymphocytes % 10.0 D Monocytes % 3.4 L Eosinophils % 2.0 Basophils % 0.4 Nucleated RBC % 0 Sodium 136 Potassium 4.4 Chloride 100 Carbon Dioxide 28 Anion Gap 7 L BUN 18.0 Creatinine 0.8 Est GFR (CKD-EPI)AfAm 121.57 Est GFR (CKD-EPI)NonAf 104.89 POC Glucometer Random Glucose 115 H Hemoglobin A1c % Calcium 8.4 L Phosphorus Magnesium Total Bilirubin 0.5 AST 78 H ALT 64 H Alkaline Phosphatase 186 H Total Protein 6.6 Albumin 3.3 L Influenza A (Rapid) Negative Influenza B (Rapid) Negative 06/28/19 06/28/19 06/28/19 07:35 07:35 07:35 WBC 6.2 RBC 5.06 Hgb 14.3 Hct 42.9 MCV 84.7 MCH 28.2 MCHC 33.3 RDW 13.3 Plt Count 195 MPV 7.9 Absolute Neuts (auto) 4.9 Neutrophils % 79.3 Lymphocytes % 15.4 D Monocytes % 3.5 L Eosinophils % 1.4 Basophils % 0.4 Nucleated RBC % 0 Sodium 136 Potassium 4.1 Chloride 101 Carbon Dioxide 30 Anion Gap 4 L BUN 15.2 Creatinine 0.8 Est GFR (CKD-EPI)AfAm 121.57 Est GFR (CKD-EPI)NonAf 104.89 POC Glucometer Random Glucose 80 Hemoglobin A1c % 5.7 Calcium 8.2 L Phosphorus 3.8 Magnesium 2.2 Total Bilirubin 1.3 H AST 76 H ALT 78 H Alkaline Phosphatase 168 H Total Protein 5.8 L Albumin 3.0 L Influenza A (Rapid) Influenza B (Rapid) 06/28/19 11:16 WBC RBC Hgb Hct MCV MCH MCHC RDW Plt Count MPV Absolute Neuts (auto) Neutrophils % Lymphocytes % Monocytes % Eosinophils % Basophils % Nucleated RBC % Sodium Potassium Chloride Carbon Dioxide Anion Gap BUN Creatinine Est GFR (CKD-EPI)AfAm Est GFR (CKD-EPI)NonAf POC Glucometer 89 Random Glucose Hemoglobin A1c % Calcium Phosphorus Magnesium Total Bilirubin AST ALT Alkaline Phosphatase Total Protein Albumin Influenza A (Rapid) Influenza B (Rapid) Active Medications Amlodipine Besylate (Norvasc -) 5 mg PO DAILY [facility] Enoxaparin Sodium (Lovenox -) 40 mg SQ DAILY [facility] Last Admin: 06/28/19 09:06 Dose: 40 mg Folic Acid (Folic Acid -) 1 mg PO DAILY [facility] Last Admin: 06/28/19 09:05 Dose: 1 mg Sodium Chloride (Normal Saline -) 1,000 mls @ 75 mls/hr IV ASDIR [facility] Last Admin: 06/28/19 20:00 Dose: Not Given Insulin Aspart (Novolog Vial Sliding Scale -) 1 vial SQ ACHS [facility]; Protocol Last Admin: 06/28/19 22:24 Dose: Not Given Lorazepam (Ativan -) 0.5 mg PO Q6H [facility] Stop: 06/30/19 23:01 Lorazepam (Ativan -) 0.5 mg PO Q4H PRN PRN Reason: Symptoms of Withdrawal Stop: 07/01/19 00:00 Lorazepam (Ativan -) 0.5 mg PO ONCE ONE Stop: 07/01/19 05:01 Lorazepam (Ativan -) 1 mg PO 0500,1100,1700,2300 [facility] Stop: 06/29/19 23:01 Lorazepam (Ativan -) 1 mg PO Q4H PRN PRN Reason: Symptoms of Withdrawal Stop: 06/30/19 00:00 Last Admin: 06/28/19 20:32 Dose: 1 mg Methadone HCl (Dolophine -) 200 mg PO DAILY@0600 [facility] Last Admin: 06/28/19 08:20 Dose: 200 mg Multivitamins/Minerals/Vitamin C (Tab-A-Vit -) 1 tab PO DAILY [facility] Last Admin: 06/28/19 09:06 Dose: 1 tab Ondansetron HCl (Zofran Injection) 4 mg IVPUSH Q6H PRN PRN Reason: NAUSEA Thiamine HCl (Vitamin B1 -) 100 mg PO DAILY [facility] Last Admin: 06/28/19 09:06 Dose: 100 mg ASSESSMENT/PLAN: 48 y/o male PMH HTN, DM, cluster headaches, bipolar depression, schizoaffective d/o, cervical fx s/p fusion repair, polysubstance abuse (alcohol, benzos, on methadone maintenance) from [facility] detox c/o elevated temperature, abdominal pain, diarrhea, and tremors and admitted for possible viral gastroenteritis. # Viral syndrome - Not febrile during this stay - CXR NEG, flu NEG - Conservative management: encourage hydration, appropriate nutrition, and antipyretics as needed. - f/u UA # Polysubstance abuse - Ativan protocol - Multivit, folate - s/p thiamine - Methadone confirmed # DM - Hold home regimen - ISS ACHS # HTN - Cont. curent home regimen: amlodepine 5 mg po qd # F/E/N - PO - Cont. to monitor - Low sodium, diabetic diet # DVT prophylaxis - Lovenox SQ # Disposition - Med/surg Marko Chapman MD Visit type - Emergency Visit Emergency Visit: No - New Patient This patient is new to me today: Yes Date on this admission: 06/28/19 - Critical Care Critical Care patient: No ATTENDING PHYSICIAN STATEMENT I saw and evaluated the patient. I reviewed the resident's note and discussed the case with the resident. I agree with the resident's findings and plan as documented. SUBJECTIVE: OBJECTIVE: ASSESSMENT AND PLAN:
[2019-06-28 17:33] LABS: BILIRUBIN,DIRECT 0.3 mg/dL (0.0-0.2)
--- NOTE | 2019-06-28 19:14 | PN ---
Teaching Attending Note Name of Resident: Marko Chapman ATTENDING PHYSICIAN STATEMENT I saw and evaluated the patient. I reviewed the resident's note and discussed the case with the resident. I agree with the resident's findings and plan as documented. SUBJECTIVE: seen at 12:30 pm . felt well then, no N/V , no diarrhea , but reported diarrhea before coming and also N/V . No dysuria OBJECTIVE: NAD. posterior neck scar. nl oropharynx. no exudate CV: RRR, Lungs: CTAB Abd: sfot, NT, ND , NL BS Ext : No edema or erythema ASSESSMENT AND PLAN: 48 y/o man withh./o alcohol abuse, HTN, DM , depression , bipolar, schizoaffective Do, who presented to [facility] fro detox and was brought here fro fever and N/V/D 1- Fever /N/V/D : ? viral gastroenteritis . sx could be due to ETOH withdrawal . no focal signs to indicate bacterial infetion - flu neg - send stool cx if diarrhea recurs - send UA . - IVF - No specific treatment -if he spikes agian, will send blood cx 2- ETOH WD : - cont ativan protocol - cont folate and thiamine - received IV thiamine in ER 3- H/o HTN: dc clonidine - resume home norvasc 4- h/o DM : will confirm home meds. cont SSI 5- H/o Opioid use: cont methadone 6-lovenox for DVT px Monitor . can dc to [facility] care if no fever x 24 hr
[2019-06-28] MEDS: SODIUM CHLORIDE 1,000 ML IV SCH (20:00)
[2019-06-28] MEDS: LORazepam 1 MG TABLET PO PRN (20:32)
[2019-06-29] MEDS: LORazepam 1 MG TABLET PO SCH ×5 (00:36→22:10)
[2019-06-29] MEDS: METHADONE HCL 40 MG DISPERSABLE TABLET PO SCH (05:57)
[2019-06-29] MEDS: INSULIN SLIDING SCALE (NOVOLOG) 1 VIAL SQ SCH ×4 (06:01→22:15)
[2019-06-29 08:08] LABS: HEMOGLOBIN 13.3 GM/dL (11.7-16.9); MCH 28.5 pg (25.7-33.7); MCHC 33.4 g/dl (32.0-35.9); MEAN CELL VOLUME 85.5 fl (80-96); PLATELET COUNT 175 K/MM3 (134-434); RBC 4.68 M/mm3 (4.00-5.60); RDW 13.4 % (11.9-15.9); WHITE BLOOD COUNT 4.8 K/mm3 (4.0-10.0)
[2019-06-29 08:43] LABS: BILIRUBIN,TOTAL 0.4 mg/dL (0.2-1); CALCIUM 8.4 mg/dL (8.5-10.1); CREATININE 0.8 mg/dL (0.55-1.3); POTASSIUM 4.1 mmol/L (3.5-5.1)
[2019-06-29] MEDS: LORazepam 1 MG TABLET PO PRN ×2 (09:07→14:54)
[2019-06-29] MEDS: NICOTINE 7 MG/24 HOURS TOPICAL PATCH TD SCH (09:25)
[2019-06-29] MEDS: THIAMINE HCL 100 MG TABLET (FP) PO SCH (09:25)
[2019-06-29] MEDS: amLODIPine BESYLATE 5 MG TABLET (FP) PO SCH (09:25)
[2019-06-29] MEDS: ENOXAPARIN NA (PORCINE) 40 MG/0.4 ML DISP.SYRIN SQ SCH (09:25)
[2019-06-29] MEDS: MULTIVITAMINS (DAILY MVI) TABLET (FP) PO SCH (09:25)
[2019-06-29] MEDS: FOLIC ACID 1 MG TABLET (FP) PO SCH (09:25)
--- NOTE | 2019-06-29 12:48 | PN ---
Physical Exam: SUBJECTIVE: Patient seen and examined at bedside. Overnight pt reported to be non-adherent with IVF and request for stool sample. This AM he reports abdominal pain. The pain has been increasing over the course of this stay. It is located in both left and right lower quadrants. It is constant, aching in character, non-radiating, and 7/10. This has never happened before. He still has his appendix and gb. OBJECTIVE: Vital Signs Temp Pulse Resp BP Pulse Ox 98.2 F 68 18 129/78 98 06/29/19 17:00 06/29/19 17:00 06/29/19 17:00 06/29/19 17:06/29/19 09:00 GENERAL: AOx3, in no acute distress. HEAD: NCAT EYES: JOSE GUADALUPE, EOMI, conjunctiva clear. ENT: Ears normal, nares patent, oropharynx clear without exudates. Moist mucous membranes. NECK: Normal range of motion, supple without lymphadenopathy, JVD, or masses. LUNGS: CTAB. No wheezes, and no crackles. No accessory muscle use. HEART: RRR s1 s2 ABDOMEN: Mild guarding. No rigidity or distention. Tender to palpation at McBurney's point. Ibrahim NEG. BS present in all 4 quadrants, no JVD. MUSCULOSKELETAL: No bony deformities or tenderness. No CVA tenderness. UPPER EXTREMITIES: 2+ pulses, warm, well-perfused. No cyanosis. No clubbing. No peripheral edema. LOWER EXTREMITIES: LEFT hip power 4/5. Decreased gross sensation LLE. 2+ pulses , warm, well-perfused. No calf tenderness. No peripheral edema. NEUROLOGICAL: No focal deficits. Cranial nerves II-XII intact. Normal speech. Gait not appreciated. PSYCHIATRIC: Cooperative. Good eye contact. Appropriate mood and affect. SKIN: Warm, dry, normal turgor, no rashes or lesions noted, normal capillary refill. Laboratory Results - last 24 hr 06/28/19 06/28/19 06/28/19 07:35 21:54 23:40 WBC RBC Hgb Hct MCV MCH MCHC RDW Plt Count MPV Sodium 136 Potassium 4.1 Chloride 101 Carbon Dioxide 30 Anion Gap 4 L BUN 15.2 Creatinine 0.8 Est GFR (CKD-EPI)AfAm 121.57 Est GFR (CKD-EPI)NonAf 104.89 POC Glucometer 84 Random Glucose 80 Calcium 8.2 L Phosphorus 3.8 Magnesium 2.2 Total Bilirubin 1.3 H Direct Bilirubin 0.3 H AST 76 H ALT 78 H Alkaline Phosphatase 168 H Total Protein 5.8 L Albumin 3.0 L Group A Strep Rapid Negative 06/29/19 06/29/19 06/29/19 05:59 07:00 07:00 WBC 4.8 RBC 4.68 Hgb 13.3 Hct 40.0 MCV 85.5 MCH 28.5 MCHC 33.4 RDW 13.4 Plt Count 175 MPV 8.0 Sodium 136 Potassium 4.1 Chloride 101 Carbon Dioxide 29 Anion Gap 6 L BUN 16.0 Creatinine 0.8 Est GFR (CKD-EPI)AfAm 121.57 Est GFR (CKD-EPI)NonAf 104.89 POC Glucometer 106 Random Glucose 101 Calcium 8.4 L Phosphorus Magnesium Total Bilirubin 0.4 Direct Bilirubin AST 42 H ALT 59 Alkaline Phosphatase 167 H Total Protein 6.0 L Albumin 3.0 L Group A Strep Rapid 06/29/19 11:36 WBC RBC Hgb Hct MCV MCH MCHC RDW Plt Count MPV Sodium Potassium Chloride Carbon Dioxide Anion Gap BUN Creatinine Est GFR (CKD-EPI)AfAm Est GFR (CKD-EPI)NonAf POC Glucometer 94 Random Glucose Calcium Phosphorus Magnesium Total Bilirubin Direct Bilirubin AST ALT Alkaline Phosphatase Total Protein Albumin Group A Strep Rapid Active Medications Amlodipine Besylate (Norvasc -) 5 mg PO DAILY [facility] Last Admin: 06/29/19 09:25 Dose: 5 mg Enoxaparin Sodium (Lovenox -) 40 mg SQ DAILY [facility] Last Admin: 06/29/19 09:25 Dose: 40 mg Folic Acid (Folic Acid -) 1 mg PO DAILY [facility] Last Admin: 06/29/19 09:25 Dose: 1 mg Sodium Chloride (Normal Saline -) 1,000 mls @ 75 mls/hr IV ASDIR [facility] Last Admin: 06/28/19 20:00 Dose: Not Given Insulin Aspart (Novolog Vial Sliding Scale -) 1 vial SQ ACHS [facility]; Protocol Last Admin: 06/29/19 18:17 Dose: Not Given Lorazepam (Ativan -) 0.5 mg PO Q6H [place] Stop: 06/30/19 23:01 Lorazepam (Ativan -) 0.5 mg PO Q4H PRN PRN Reason: Symptoms of Withdrawal Stop: 07/01/19 00:00 Lorazepam (Ativan -) 0.5 mg PO ONCE ONE Stop: 07/01/19 05:01 Lorazepam (Ativan -) 1 mg PO 0500,1100,1700,2300 [facility] Stop: 06/29/19 23:01 Last Admin: 06/29/19 18:19 Dose: 1 mg Lorazepam (Ativan -) 1 mg PO Q4H PRN PRN Reason: Symptoms of Withdrawal Stop: 06/30/19 00:00 Last Admin: 06/29/19 14:54 Dose: 1 mg Methadone HCl (Dolophine -) 200 mg PO DAILY@0600 [facility] Last Admin: 06/29/19 05:57 Dose: 200 mg Multivitamins/Minerals/Vitamin C (Tab-A-Vit -) 1 tab PO DAILY [facility] Last Admin: 06/29/19 09:25 Dose: 1 tab Nicotine (Nicoderm Patch -) 7 mg TD DAILY [facility] Last Admin: 06/29/19 09:25 Dose: 7 mg Ondansetron HCl (Zofran Injection) 4 mg IVPUSH Q6H PRN PRN Reason: NAUSEA Thiamine HCl (Vitamin B1 -) 100 mg PO DAILY [facility] Last Admin: 06/29/19 09:25 Dose: 100 mg ASSESSMENT/PLAN: 48 y/o male PMH HTN, DM, cluster headaches, bipolar depression, schizoaffective d/o, cervical fx s/p fusion repair, polysubstance abuse (alcohol, benzos, on methadone maintenance) from [facility] detox c/o elevated temperature, abdominal pain, diarrhea, and tremors and admitted for possible viral gastroenteritis. Abdominal pain suspicious for appendicitis. # Poss appendicitis - Suspicious PE - CT ab - IVF # Poss c-diff - From [facility] - F/u results # Poss viral syndrome - Not febrile during this stay - CXR NEG, flu NEG - Conservative management: encourage hydration, appropriate nutrition, and antipyretics as needed. - f/u UA # Polysubstance abuse - Ativan protocol - Multivit, folate - s/p thiamine - Methadone confirmed # DM - Hold home regimen - ISS ACHS # HTN - Cont. curent home regimen: amlodepine 5 mg po qd # F/E/N - PO - Cont. to monitor - Low sodium, diabetic diet # DVT prophylaxis - Lovenox SQ # Disposition - Med/surg Marko Chapman MD Visit type - Emergency Visit Emergency Visit: No - New Patient This patient is new to me today: No - Critical Care Critical Care patient: No ATTENDING PHYSICIAN STATEMENT I saw and evaluated the patient. I reviewed the resident's note and discussed the case with the resident. I agree with the resident's findings and plan as documented. SUBJECTIVE: OBJECTIVE: ASSESSMENT AND PLAN:
--- NOTE | 2019-06-29 14:06 | PN ---
Teaching Attending Note Name of Resident: Marko Chapman ATTENDING PHYSICIAN STATEMENT I saw and evaluated the patient. I reviewed the resident's note and discussed the case with the resident. I agree with the resident's findings and plan as documented. SUBJECTIVE: feels pain in lower abdomen. had 11 BMs yestrday , 5 so far this am. stool is pasty and loose. no N/V. tolerated his diet but poor appetite No dysuria OBJECTIVE: NAD. posterior neck scar CV: RRR, Lungs: CTAB Abd: soft, TTP in LLQ nad RLQ and suprapubic area Ext : No edema or erythema ASSESSMENT AND PLAN: 48 y/o man with h./o alcohol abuse, HTN, DM , depression , bipolar, schizoaffective Do, who presented to [facility] fro detox and was brought here for fever and N/V/D 1- Fever /N/V/D : Need to r/o acute diverticulitis / colitis . viral gastroenteritis is still in DDx. c diff neg - get CT of abd with po and IV contrast - follow stool cx - UA is not done yet - if he spikes again, will send blood cx - cont IVF. He has been refusing 2- ETOH WD : - cont ativan protocol - cont folate and thiamine 3- H/o HTN: patient states he is on clonidine -cont norvasc - will investigate about clonidine 4- H/o DM : Not on any meds at home . A1c 5.7 5- H/o Opioid use: cont methadone 6- Lovenox for DVT px cont to Monitor ASSESSMENT AND PLAN:
[2019-06-29 16:26] LABS: PH,URINE 6.5 (5.0-8.0); URINE APPEARANCE CLEAR; URINE BILIRUBIN NEGATIVE (NEGATIVE); URINE COLOR YELLOW; URINE GLUCOSE (UA) NEGATIVE (NEGATIVE); URINE KETONE NEGATIVE (NEGATIVE); URINE LEUK ESTERASE NEGATIVE (NEGATIVE); URINE NITRITE NEGATIVE (NEGATIVE); URINE PROTEIN NEGATIVE (NEGATIVE)
[2019-06-29] MEDS: SODIUM CHLORIDE 1,000 ML IV SCH (19:22)
[2019-06-29] MEDS ORDERED: DOCUSATE SODIUM 100 MG CAPSULE (FP) PO ONE (19:32)
[2019-06-29] MEDS ORDERED: POLYETHYLENE GLYCOL 3350 119 GM BTL PO ONE (19:32)
[2019-06-29] MEDS: ACETAMINOPHEN 1000 MG/100 ML VIAL (NON FORMULARY) IVPB PRN (20:06)
[2019-06-29] MEDS: SENNOSIDES 8.6MG TABLET (FP) PO SCH ×2 (21:41→22:10)
[2019-06-30] MEDS ORDERED: LORazepam 0.5 MG TABLET PO PRN
[2019-06-30] MEDS: LORazepam 0.5 MG TABLET PO SCH ×4 (04:16→22:07)
[2019-06-30] MEDS: INSULIN SLIDING SCALE (NOVOLOG) 1 VIAL SQ SCH ×4 (06:09→21:20)
[2019-06-30] MEDS: METHADONE HCL 40 MG DISPERSABLE TABLET PO SCH (06:34)
[2019-06-30 09:26] LABS: HEMATOCRIT 43.6 % (35.4-49); HEMOGLOBIN 14.6 GM/dL (11.7-16.9); MCH 28.7 pg (25.7-33.7); MCHC 33.4 g/dl (32.0-35.9); MEAN CELL VOLUME 85.7 fl (80-96); MEAN PLT VOLUME 7.8 fl (7.5-11.1); PLATELET COUNT 190 K/MM3 (134-434); RBC 5.09 M/mm3 (4.00-5.60); RDW 13.3 % (11.9-15.9); WHITE BLOOD COUNT 4.5 K/mm3 (4.0-10.0)
[2019-06-30] MEDS ORDERED: DOCUSATE SODIUM 100 MG CAPSULE (FP) PO SCH (10:00)
[2019-06-30 10:05] LABS: ALBUMIN 3.4 g/dl (3.4-5.0); BILIRUBIN,TOTAL 0.4 mg/dL (0.2-1); BLOOD UREA NITROGEN 13.3 mg/dL (7-18); CALCIUM 8.7 mg/dL (8.5-10.1); CREATININE 0.8 mg/dL (0.55-1.3); POTASSIUM 4.3 mmol/L (3.5-5.1); TOT PROT 6.7 g/dl (6.4-8.2)
[2019-06-30] MEDS: MULTIVITAMINS (DAILY MVI) TABLET (FP) PO SCH (11:23)
[2019-06-30] MEDS: amLODIPine BESYLATE 5 MG TABLET (FP) PO SCH (11:23)
[2019-06-30] MEDS: ENOXAPARIN NA (PORCINE) 40 MG/0.4 ML DISP.SYRIN SQ SCH (11:23)
[2019-06-30] MEDS: THIAMINE HCL 100 MG TABLET (FP) PO SCH (11:24)
[2019-06-30] MEDS: NICOTINE 7 MG/24 HOURS TOPICAL PATCH TD SCH (11:24)
[2019-06-30] MEDS: FOLIC ACID 1 MG TABLET (FP) PO SCH (11:24)
[2019-06-30] MEDS: ACETAMINOPHEN 1000 MG/100 ML VIAL (NON FORMULARY) IVPB PRN (15:15)
--- NOTE | 2019-06-30 16:47 | PN ---
Physical Exam: SUBJECTIVE: Patient seen and examined at bedside. Overnight there were no acute events. This AM he continues to experience LEFT hip pain and abdominal pain. The hip pain is similar in presentation to his RIGHT prior to hip surgery. He notes that when he feels the pain/stabbing sensation in his gluteal cleft, he is in most pain. The abdominal pain has been on/off, in both lwoer quadrants, and nothing offered so far has helped with his pain. He states that he understands the inability to safely prescribe certain pain relief while on ativan protocol. He has not passed stool yet this AM. OBJECTIVE: Vital Signs Temp Pulse Resp BP Pulse Ox 98.1 F 65 18 122/73 98 06/30/19 15:05 06/30/19 05:49 06/30/19 09:00 06/30/19 05:49 06/29/19 09:00 GENERAL: AOx3, in no acute distress, sleeping in LEFT lateral decubitus ( favoring painful hip) HEAD: NCAT EYES: JOSE GUADALUPE, EOMI, conjunctiva clear. ENT: Ears normal, nares patent, oropharynx clear without exudates. Moist mucous membranes. NECK: Normal range of motion, supple without lymphadenopathy, JVD, or masses. LUNGS: CTAB. No wheezes, and no crackles. No accessory muscle use. HEART: RRR s1 s2 ABDOMEN: No guarding. No rigidity or distention. Tender to palpation diffusely in lower abdomen BL. Ibrahim NEG. BS present in all 4 quadrants, no JVD. AMADOR refused. MUSCULOSKELETAL: No bony deformities or tenderness. No CVA tenderness. UPPER EXTREMITIES: 2+ pulses, warm, well-perfused. No cyanosis. No clubbing. No peripheral edema. LOWER EXTREMITIES: LEFT hip power 4/5. Decreased gross sensation LLE. 2+ pulses , warm, well-perfused. No calf tenderness. No peripheral edema. NEUROLOGICAL: No focal deficits. Cranial nerves II-XII intact. Normal speech. Gait not appreciated. PSYCHIATRIC: Cooperative. Good eye contact. Appropriate mood and affect. SKIN: Warm, dry, normal turgor, no rashes or lesions noted, normal capillary refill. Laboratory Results - last 24 hr 06/29/19 06/30/19 06/30/19 22:13 05:31 09:10 WBC 4.5 RBC 5.09 Hgb 14.6 Hct 43.6 MCV 85.7 MCH 28.7 MCHC 33.4 RDW 13.3 Plt Count 190 MPV 7.8 Sodium Potassium Chloride Carbon Dioxide Anion Gap BUN Creatinine Est GFR (CKD-EPI)AfAm Est GFR (CKD-EPI)NonAf POC Glucometer 88 96 Random Glucose Calcium Total Bilirubin AST ALT Alkaline Phosphatase Total Protein Albumin 06/30/19 09:10 WBC RBC Hgb Hct MCV MCH MCHC RDW Plt Count MPV Sodium 137 Potassium 4.3 Chloride 103 Carbon Dioxide 29 Anion Gap 5 L BUN 13.3 Creatinine 0.8 Est GFR (CKD-EPI)AfAm 121.57 Est GFR (CKD-EPI)NonAf 104.89 POC Glucometer Random Glucose 111 H Calcium 8.7 Total Bilirubin 0.4 AST 28 ALT 51 Alkaline Phosphatase 162 H Total Protein 6.7 Albumin 3.4 Active Medications Amlodipine Besylate (Norvasc -) 5 mg PO DAILY [facility] Last Admin: 06/30/19 11:23 Dose: 5 mg Folic Acid (Folic Acid -) 1 mg PO DAILY [facility] Last Admin: 06/30/19 11:24 Dose: 1 mg Sodium Chloride (Normal Saline -) 1,000 mls @ 75 mls/hr IV ASDIR [facility] Last Admin: 06/30/19 21:03 Dose: Not Given Insulin Aspart (Novolog Vial Sliding Scale -) 1 vial SQ [facility]; Protocol Last Admin: 06/30/19 21:20 Dose: Not Given Lorazepam (Ativan -) 0.5 mg PO Q6H [facility] Stop: 06/30/19 23:01 Last Admin: 06/30/19 22:07 Dose: 0.5 mg Lorazepam (Ativan -) 0.5 mg PO Q4H PRN PRN Reason: Symptoms of Withdrawal Stop: 07/01/19 00:00 Last Admin: 06/30/19 21:24 Dose: 0.5 mg Lorazepam (Ativan -) 0.5 mg PO ONCE ONE Stop: 07/01/19 05:01 Methadone HCl (Dolophine -) 200 mg PO DAILY@0600 [facility] Last Admin: 06/30/19 06:34 Dose: 200 mg Multivitamins/Minerals/Vitamin C (Tab-A-Vit -) 1 tab PO DAILY [facility] Last Admin: 06/30/19 11:23 Dose: 1 tab Nicotine (Nicoderm Patch -) 7 mg TD DAILY [facility] Last Admin: 06/30/19 11:24 Dose: 7 mg Olanzapine (Zyprexa -) 10 mg PO HS [facility] Last Admin: 06/30/19 21:22 Dose: 10 mg Ondansetron HCl (Zofran Injection) 4 mg IVPUSH Q6H PRN PRN Reason: NAUSEA Senna (Senna -) 1 tab PO HS [facility] Last Admin: 06/30/19 21:22 Dose: Not Given Thiamine HCl (Vitamin B1 -) 100 mg PO DAILY [facility] Last Admin: 06/30/19 11:24 Dose: 100 mg ASSESSMENT/PLAN: 48 y/o male PMH HTN, DM, cluster headaches, bipolar depression, schizoaffective d/o, cervical fx s/p fusion repair, polysubstance abuse (alcohol, benzos, on methadone maintenance) from [facility] detox c/o elevated temperature, abdominal pain, diarrhea, and tremors and admitted for possible viral gastroenteritis. # Ab pain - CT: distension - Senna, colace, simethicone - Miralax prn - Regular ambulation # Incidental finding of mass RIGHT cardiophenic angle - ? Malignancy - CT chest # Poss viral syndrome - Not febrile during this stay - CXR NEG, flu NEG - Conservative management: encourage hydration, appropriate nutrition, and antipyretics as needed. - f/u UA # Polysubstance abuse - Ativan protocol - Multivit, folate - s/p thiamine - Methadone # Schizoaffective - Zyprexa 7.5 mg po hs added # DM - Hold home regimen - ISS ACHS # HTN - Cont. curent home regimen: amlodepine 5 mg po qd # F/E/N - PO - Cont. to monitor - Low sodium, diabetic diet # DVT prophylaxis - Lovenox SQ # Disposition - Med/surg Marko Chapman MD Visit type - Emergency Visit Emergency Visit: No - New Patient This patient is new to me today: No - Critical Care Critical Care patient: No ATTENDING PHYSICIAN STATEMENT I saw and evaluated the patient. I reviewed the resident's note and discussed the case with the resident. I agree with the resident's findings and plan as documented. SUBJECTIVE: OBJECTIVE: ASSESSMENT AND PLAN:
--- NOTE | 2019-06-30 17:19 | PN ---
Teaching Attending Note Name of Resident: Marko Chapman ATTENDING PHYSICIAN STATEMENT I saw and evaluated the patient. I reviewed the resident's note and discussed the case with the resident. I agree with the resident's findings and plan as documented. SUBJECTIVE: No fever or chills. has diarrhea 5 times today, stool started to become more formed. Feels nauseous. no CP , has lower abd pain. OBJECTIVE: NAD. posterior neck scar CV: RRR, Lungs: CTAB Abd: soft, TTP in LLQ nad RLQ and suprapubic area Ext : No edema or erythema ASSESSMENT AND PLAN: 48 y/o man with h./o alcohol abuse, HTN, DM , depression, bipolar, schizoaffective Do, who presented to [facility] for detox and was brought here for fever and N/V/D 1- Fever /N/V/D: No diverticulitis or colitis on CT scan with contrast monitor off Abx - CT with dilated stomach which might explain his N/V . it might appear on imaging that first part of duodenum is silated too. - will ask GI eval for possible EGD 2- CT scan finding of a mass in R lower cardiophrenic angle . on review of CT scan this could be a lung mass VS a mediastinal mass. - Will get a CT of chest with contrast to better evaluate mediastimum ( ? lymphoma, thymoma, esophageal ca, ...) - IR Bx through anterior chest wall , hopefully on Wednesday. case was d.w dr. Clark by team. - will ask heme for eval - patient was informed of the mass and the plan. he became tearful . 3- ETOH WD : - cont ativan protocol . last day today - cont folate and thiamine 4- H/o HTN: -cont norvasc -clonidine was only given in [facility] to control withdrawal symptoms 5- H/o DM : Not on any meds at home . A1c 5.7 6- H/o Opioid use: cont methadone 7-Lovenox for DVT px cont to Monitor ASSESSMENT AND PLAN:
--- NOTE | 2019-06-30 17:27 | CON.PSY ---
Psychiatry Consult Chief Complaint: 48 Gibran old male with a history of Alcihol Dependence, Metahadone maintanance admitted from [facility]. seen for Psych eval for Labile and aggressive Behaviour. Patient deniers any Psych admissions. Symptoms: reports: Irritability, Expansive / Elevated Mood, Excessive Energy - Previous Psychiatric Treatment Outpatient: None Inpatient: None - Previous Substance Abuse Treatment Inpatient: 2 or more prior admissions - Reason for Previous Treatment Reason for Previous Treatment: Alcohol Abuse, Heroin or Other Narcotics - Current Medications Current Medications: Active Medications Acetaminophen (Ofirmev Injection -) 1,000 mg IVPB Q6H PRN PRN Reason: PAIN LEVEL 6-10 Stop: 06/30/19 19:28 Last Admin: 06/30/19 15:15 Dose: 1,000 mg Amlodipine Besylate (Norvasc -) 5 mg PO DAILY [facility] Last Admin: 06/30/19 11:23 Dose: 5 mg Docusate Sodium (Colace -) 100 mg PO DAILY [facility] Last Admin: 06/30/19 11:23 Dose: 100 mg Folic Acid (Folic Acid -) 1 mg PO DAILY [facility] Last Admin: 06/30/19 11:24 Dose: 1 mg Sodium Chloride (Normal Saline -) 1,000 mls @ 75 mls/hr IV ASDIR [facility] Last Admin: 06/29/19 19:22 Dose: Not Given Insulin Aspart (Novolog Vial Sliding Scale -) 1 vial SQ ACHS [facility]; Protocol Last Admin: 06/30/19 16:47 Dose: Not Given Lorazepam (Ativan -) 0.5 mg PO Q6H [facility] Stop: 06/30/19 23:01 Last Admin: 06/30/19 11:25 Dose: 0.5 mg Lorazepam (Ativan -) 0.5 mg PO Q4H PRN PRN Reason: Symptoms of Withdrawal Stop: 07/01/19 00:00 Lorazepam (Ativan -) 0.5 mg PO ONCE ONE Stop: 07/01/19 05:01 Methadone HCl (Dolophine -) 200 mg PO DAILY@0600 [facility] Last Admin: 06/30/19 06:34 Dose: 200 mg Multivitamins/Minerals/Vitamin C (Tab-A-Vit -) 1 tab PO DAILY [facility] Last Admin: 06/30/19 11:23 Dose: 1 tab Nicotine (Nicoderm Patch -) 7 mg TD DAILY [facility] Last Admin: 06/30/19 11:24 Dose: 7 mg Ondansetron HCl (Zofran Injection) 4 mg IVPUSH Q6H PRN PRN Reason: NAUSEA Senna (Senna -) 1 tab PO HS [facility] Last Admin: 06/29/19 22:10 Dose: Not Given Thiamine HCl (Vitamin B1 -) 100 mg PO DAILY [facility] Last Admin: 06/30/19 11:24 Dose: 100 mg - Allergies Allergies: Allergies Allergy/AdvReac Type Severity Reaction Status Date / Time No Known Allergies Allergy Verified 06/26/19 12:45 - Current Living Status Usual Living Arrangement: Alone - Current Mental Status Evaluation Appearance: Disheveled Attitude: Guarded - Affect Affect: Labile Appropriateness: Appropriate to Content - Mood Mood: Irritable - Speech/Language Expressive: Coherent - Psychomotor Activity Psychomotor Activity: Hyperactive - Thought Process Thought Process: Intact - Thought Content Hallucinations: Absent Delusions: Absent - Self Perception Self Perception: No Impairment - Cognition Attention: Alert Orientation: Time Memory, Immediate Recall: Intact Memory, Short Term: 3/3 Memory, Remote with Promptin/3 - Concentration Serial Sevens Intact: No Simple Calculations Intact: Yes - Abstraction Proverb Interpretation: Intact Judgement: Minimally Impaired - Insight Insight: Intact - Impulse Control Impulse Control: Minimally Impaired - Suicidal Ideation Suicidal Ideation: No - Homicidal Ideation Homicidal Ideation: No Assessment/Plan 1) add Zyprexa7.5mg po hs for agiation and lability.
--- NOTE | 2019-06-30 17:30 | CON.GI ---
Consult Consult Specialty:: GI Referred by:: Hospitalist service Reason for Consultation:: ? gastroparesis - History of Present Illness Chief Complaint: Was at detox, transferred for eval of fevers History of Present Illness: 48M admitted from detox due to fevers. asked to evaluate for gastroparesis because the CT revealed mildly overly distended with food. It also revealed fecal retention and 5.4 x 4cm soft tissue cardiophrenic angle density and mild splenomegaly. he denies abdominal pain nausea, vomiting. he abuses alcohol, prescription benzodiazapines and has used heroin and abused prescription opiates. he is on methadone. He is tearful during my evaluation and explains that his "family is tired of his fuck ups" and will not speak to him and feels as though he "needs medication to straighten out his fucking head". His main concern is seeing a psychiatrist. The nurse reports some loose bowel movements. - History Source History Provided By: Patient, Medical Record - Past Medical History Cardio/Vascular: Yes: HTN Psych: Yes: Addictions (opiates, alcohol, benzos) Endocrine: Yes: Diabetes Mellitus - Past Surgical History Past Surgical History: Yes: Joint Replacement (Right THR, c2-c7 spinal fusion) Additional Surgical History: cervical spine surgery and fusion - Alcohol/Substance Use Hx Alcohol Use: Yes - Smoking History Smoking history: Current every day smoker Have you smoked in the past 12 months: Yes Aproximately how many cigarettes per day: 20 - Social History Usual Living Arrangement: Alone ( x 2) ADL: Independent Occupation: Unemployed Place of : [facility] History of Recent Travel: No Home Medications - Allergies Allergies/Adverse Reactions: Allergies Allergy/AdvReac Type Severity Reaction Status Date / Time No Known Allergies Allergy Verified 06/26/19 12:45 - Home Medications Home Medications: Ambulatory Orders Methadone [Dolophine -] 200 mg PO DAILY 06/26/19 Amlodipine Besylate [Norvasc -] 1 tab PO DAILY 06/28/19 Nicotine Patch [Nicoderm Patch -] 1 patch TD DAILY 06/28/19 Family Medical History Other Family History: Mother: alive: HTN. Father: : possible mesothelioma. 2 1/2 sisters: healthy. No children. No family history of colorectal cancer or other GI maligancny Review of Systems - Review of Systems Constitutional: reports: Fever Cardiovascular: denies: Chest Pain Respiratory: denies: Cough Gastrointestinal: reports: Diarrhea. denies: Abdominal Pain, Nausea, Vomiting Physical Exam-GI Vital Signs: Vital Signs Temperature 98.1 F 06/30/19 15:05 Pulse Rate 65 06/30/19 05:49 Respiratory Rate 18 06/30/19 05:49 Blood Pressure 122/73 06/30/19 05:49 O2 Sat by Pulse Oximetry (%) 98 06/29/19 09:00 Constitutional: Yes: Calm Eyes: No: Sclera Icterus Cardiovascular: Yes: Regular Rate and Rhythm Respiratory: Yes: CTA Bilaterally Gastrointestinal Inspection: No: Distention ...Auscultate: Yes: Normoactive Bowel Sounds ...Palpate: Yes: Soft. No: Hepatomegaly, Splenomegaly, Tenderness ...Percussion: No: Tympanitic Edema: No (No LE edema) Neurological: Yes: Alert Labs: CBC, BMP 06/30/19 09:10 06/30/19 09:10 Assessment/Plan Currently no GI complaints. Suspect complaints derived from the substances he abuses and withdrawal from them. If continued nausea or if vomiting develops, obtain UGIS on wednesday. CT scan revealed fecal retention, so uncertain if this is true diarrhea vs. paradoxical diarrhea secondary to fecal retention. Advised a rectal exam to evaluate for fecal retention / impaction that would suport this. If copious ana diarrhea then would stop the current bowel regimen that he is on. Otherwise, colace not particularly effective. Use MiraLAX as stool softener if needed as adjunct with senna given his chronic methadone use.
[2019-06-30] MEDS: SODIUM CHLORIDE 1,000 ML IV SCH (21:03)
[2019-06-30] MEDS: SENNOSIDES 8.6MG TABLET (FP) PO SCH (21:22)
[2019-06-30] MEDS: OLANZapine 10 MG TABLET PO SCH (21:22)
[2019-06-30] MEDS ORDERED: diphenhydrAMINE HCL 25 MG CAPSULE (FP) PO ONE (21:29)
[2019-07-01] MEDS ORDERED: LORazepam 0.5 MG TABLET PO ONE (05:00)
[2019-07-01] MEDS: METHADONE HCL 40 MG DISPERSABLE TABLET PO SCH (05:39)
[2019-07-01] MEDS: INSULIN SLIDING SCALE (NOVOLOG) 1 VIAL SQ SCH ×3 (06:34→16:35)
[2019-07-01 09:46] LABS: HEMATOCRIT 41.7 % (35.4-49); HEMOGLOBIN 13.9 GM/dL (11.7-16.9); MCH 28.3 pg (25.7-33.7); MCHC 33.4 g/dl (32.0-35.9); MEAN CELL VOLUME 84.8 fl (80-96); MEAN PLT VOLUME 8.1 fl (7.5-11.1); PLATELET COUNT 184 K/MM3 (134-434); RBC 4.92 M/mm3 (4.00-5.60); RDW 13.3 % (11.9-15.9); WHITE BLOOD COUNT 5.2 K/mm3 (4.0-10.0)
[2019-07-01 09:57] LABS: INR 1.03 (0.83-1.09); PROTHROMBIN TIME (PATIENT) 12.2 SEC (9.7-13.0)
[2019-07-01] MEDS ORDERED: POLYETHYLENE GLYCOL 3350 119 GM BTL PO PRN (10:00)
[2019-07-01] MEDS: NICOTINE 7 MG/24 HOURS TOPICAL PATCH TD SCH (10:08)
[2019-07-01] MEDS: amLODIPine BESYLATE 5 MG TABLET (FP) PO SCH (10:08)
[2019-07-01] MEDS: THIAMINE HCL 100 MG TABLET (FP) PO SCH (10:08)
[2019-07-01] MEDS: FOLIC ACID 1 MG TABLET (FP) PO SCH (10:08)
[2019-07-01] MEDS: MULTIVITAMINS (DAILY MVI) TABLET (FP) PO SCH (10:08)
[2019-07-01 10:20] LABS: ALBUMIN 3.3 g/dl (3.4-5.0); BILIRUBIN,TOTAL 0.2 mg/dL (0.2-1); BLOOD UREA NITROGEN 13.1 mg/dL (7-18); CALCIUM 8.7 mg/dL (8.5-10.1); CREATININE 0.8 mg/dL (0.55-1.3); MAGNESIUM 2.2 mg/dL (1.8-2.4); PHOSPHOROUS 4.6 mg/dL (2.5-4.9); POTASSIUM 4.5 mmol/L (3.5-5.1); TOT PROT 6.2 g/dl (6.4-8.2)
--- NOTE | 2019-07-01 12:12 | PN ---
Physical Exam: SUBJECTIVE: Patient seen and examined at bed side no acute events over night denies any BM x2 days (yesterday told attending he had 5 BM ) reports ight hip pain and lower abdominal pain no fever or chills reported OBJECTIVE: Vital Signs Period Temp Pulse Resp BP Sys/Kern Pulse Ox Last 24 Hr 97.9 F-98.5 F 56-68 18-18 122-150/46-73 GENERAL: AAOx3 in NAD , constricted pupils HEAD: NC/AT, surgical scar posterior neck EYES: EOMI, Conjunctiva clear, sclera anicteric ENT: moist mucous membrane NECK: Supple, no JVD LUNGS: CTA B/L, no crackles no wheezing no accessory muscle use. HEART: RRR, NSR, normal s1, s2, murmur no M/R/G ABDOMEN: Soft, ND, lower abdominal tenderness Right and left and suprapubic , + BS 4 Q, no CVA Tenderness LOWER EXTREMITIES: no edema, +2DP pulse, NEUROLOGICAL: No focal deficit. Normal speech. gait not observed. PSYCHIATRIC: Cooperative. Good eye contact. Appropriate mood and affect. SKIN: Warm, dry, AMADOR :external skin tag , normal sphincter tone , empty vault and no nodule palpated or prostate irregularity Laboratory Results - last 24 hr 06/30/19 07/01/19 07/01/19 21:06 05:07 08:43 WBC RBC Hgb Hct MCV MCH MCHC RDW Plt Count MPV PT with INR 12.20 INR 1.03 Sodium Potassium Chloride Carbon Dioxide Anion Gap BUN Creatinine Est GFR (CKD-EPI)AfAm Est GFR (CKD-EPI)NonAf POC Glucometer 372 98 Random Glucose Calcium Phosphorus Magnesium Total Bilirubin AST ALT Alkaline Phosphatase Total Protein Albumin 07/01/19 07/01/19 07/01/19 08:43 08:43 11:32 WBC 5.2 RBC 4.92 Hgb 13.9 Hct 41.7 MCV 84.8 MCH 28.3 MCHC 33.4 RDW 13.3 Plt Count 184 MPV 8.1 PT with INR INR Sodium 141 Potassium 4.5 Chloride 108 H Carbon Dioxide 26 Anion Gap 7 L BUN 13.1 Creatinine 0.8 Est GFR (CKD-EPI)AfAm 121.57 Est GFR (CKD-EPI)NonAf 104.89 POC Glucometer 81 Random Glucose 90 Calcium 8.7 Phosphorus 4.6 Magnesium 2.2 Total Bilirubin 0.2 AST 25 ALT 44 Alkaline Phosphatase 152 H Total Protein 6.2 L Albumin 3.3 L Active Medications Generic Name Dose Route Start Last Admin Trade Name Margret PRN Reason Stop Dose Admin Amlodipine Besylate 5 mg 06/29/19 10:00 07/01/19 10:08 Norvasc - PO 5 mg DAILY [facility] Administration Folic Acid 1 mg 06/28/19 10:00 07/01/19 10:08 Folic Acid - PO 1 mg DAILY [facility] Administration Sodium Chloride 1,000 mls @ 75 mls/hr 06/28/19 19:15 06/30/19 21:03 Normal Saline - IV Not Given ASDIR [facility] Insulin Aspart 1 vial 06/28/19 07:00 07/01/19 11:34 Novolog Vial Sliding Scale - SQ Not Given ACHS [facility] Protocol Methadone HCl 200 mg 06/28/19 07:30 07/01/19 05:39 Dolophine - PO 200 mg DAILY@0600 [facility] Administration Multivitamins/Minerals/Vitamin C 1 tab 06/28/19 10:00 07/01/19 10:08 Tab-A-Vit - PO 1 tab DAILY [facility] Administration Nicotine 7 mg 06/29/19 10:00 07/01/19 10:08 Nicoderm Patch - TD 7 mg DAILY [facility] Administration Olanzapine 10 mg 06/30/19 22:00 06/30/19 21:22 Zyprexa - PO 10 mg HS [facility] Administration Ondansetron HCl 4 mg 06/28/19 06:00 Zofran Injection IVPUSH Q6H PRN NAUSEA Polyethylene Glycol 17 gm 07/01/19 10:00 Miralax (For Daily Use) - PO DAILY PRN CONSTIPATION Senna 1 tab 06/29/19 19:32 06/30/19 21:22 Senna - PO Not Given HS [facility] Thiamine HCl 100 mg 06/28/19 10:00 07/01/19 10:08 Vitamin B1 - PO 100 mg DAILY [facility] Administration CBC, BMP 07/01/19 08:43 07/01/19 08:43 ASSESSMENT/PLAN: 48 y/o male PMH HTN, DM, cluster headaches, bipolar depression, schizoaffective d/o, cervical fx s/p fusion repair, polysubstance abuse (alcohol, benzos, on methadone maintenance) from [facility] detox c/o elevated temperature, abdominal pain, diarrhea, and tremors and admitted for possible viral gastroenteritis. # fever , N/V Abdominal pain viral syndrome , no diverticulosis on CT scan , gastric thickining might benifit from EGD as out pt * CT: A/P reviewed * Senna, simethicone * Miralax prn # Incidental finding of mass RIGHT cardiophenic angle 4.5 x5 mass lung vs mediastinal for biopsy on Wednesday pulmonary and heme/oncology consulted , hold ASa and any nSIAD for biopsy on Wednesday # Polysubstance abuse * Ativan protocol completed , DC arivan PRN * Multivit, folate , thiamin * Mathadone 200 daily * dc fluids * nicotin dependence # HTN on norvasc # Schizoaffective * Zyprexa 10 mg po hs added # DM * Hold home regimen * ISS ACHS * A1c 5.7 # splenomagaly follow up out pt # F/E/N * enourage oral intake * monitor lytes * Low sodium, diabetic diet # DVT prophylaxis * Lovenox SQ # Disposition * Med/surg Visit type - Emergency Visit Emergency Visit: Yes ED Registration Date: 06/27/19 Care time: The patient presented to the Emergency Department on the above date and was hospitalized for further evaluation of their emergent condition. - New Patient This patient is new to me today: Yes Date on this admission: 07/01/19 - Critical Care Critical Care patient: No ATTENDING PHYSICIAN STATEMENT I saw and evaluated the patient. I reviewed the resident's note and discussed the case with the resident. I agree with the resident's findings and plan as documented. SUBJECTIVE: OBJECTIVE: ASSESSMENT AND PLAN:
--- NOTE | 2019-07-01 14:05 | PN.GI ---
GI Progress Note Subjective: overage fof Dr laughlin diarrhea resolved, toleraing diet, no nausea and no vomiting, doubt gastroparesis - Objective Vital Signs: Vital Signs Temperature 97.9 F 07/01/19 09:00 Pulse Rate 56 L 07/01/19 09:00 Respiratory Rate 18 07/01/19 09:00 Blood Pressure 128/73 07/01/19 09:00 O2 Sat by Pulse Oximetry (%) 98 06/29/19 09:00 Constitutional: Well Nourished Eyes: Yes: Conjunctiva Clear HENT: Yes: Atraumatic Neck: Yes: Supple Cardiovascular: Yes: Regular Rate and Rhythm Respiratory: Yes: CTA Bilaterally ...Auscultate: No: Hypoactive Bowel Sounds ...Palpate: Yes: Soft. No: Guarding, Hepatomegaly, Mass, Pulsatile Mass, Splenomegaly, Tenderness Labs: CBC, BMP 07/01/19 08:43 07/01/19 08:43 INR, PTT INR 1.03 (0.83-1.09) 07/01/19 08:43 Problem List - Problems (1) Alcohol withdrawal Code(s): F10.239 - ALCOHOL DEPENDENCE WITH WITHDRAWAL, UNSPECIFIED Qualifiers: Complication of substance-induced condition: with unspecified complication Qualified Code(s): F10.239 - Alcohol dependence with withdrawal, unspecified (2) Polysubstance abuse Code(s): F19.10 - OTHER PSYCHOACTIVE SUBSTANCE ABUSE, UNCOMPLICATED (3) Elevated liver enzymes Assessment/Plan: mild most likely secondary to alcohol abuse R> hepatitis profile if not done yet Dr Laughlin will resume care Wednesday Code(s): R74.8 - ABNORMAL LEVELS OF OTHER SERUM ENZYMES
--- NOTE | 2019-07-01 16:32 | PN ---
Teaching Attending Note Name of Resident: Lew Munoz ATTENDING PHYSICIAN STATEMENT I saw and evaluated the patient. I reviewed the resident's note and discussed the case with the resident. I agree with the resident's findings and plan as documented. SUBJECTIVE: seen at 9:30 am No fever or chills. no SI. no N/V. has lower abd pain. tolerating diet. no diarrhea today OBJECTIVE: NAD. posterior neck scar. CV: RRR. Lungs: CTAB Abd: soft, TTP in LLQ and RLQ and suprapubic area .No rebound tenderness or guarding Ext: No edema or erythema ASSESSMENT AND PLAN: 48 y/o man with h./o alcohol abuse, HTN, DM , depression, bipolar, schizoaffective Do, who presented to [facility] for detox and was brought here for fever and N/V/D 1- Fever /N/V/D: No diverticulitis or colitis on CT scan monitor off Abx Rectal by Dr. Munoz with no hard stool in rectum. 2- dilated stomach. Seen by GI , no intervention at this time unless he has N/V . 3- Mass in R lower cardiophrenic angle. CT chest reviewed. mediastinal mass vs lung mass. read is still pending - plan fro IR bx on Wednesday - heme/onc eval 3- ETOH WD : - finished detox course. no signs of withdrawal - cont folate and thiamine 4- H/o HTN: -cont norvasc 5- H/o DM: Not on any meds at home . A1c 5.7 dc BGMs and SSI . sugar ranges 80s-120s 6- H/o Opioid use: cont methadone 7- Agitation : cont zyprexa per psych . avoid benzos No SI . Lovenox for DVT px. cont to Monitor
[2019-07-01] MEDS ORDERED: diphenhydrAMINE HCL 25 MG CAPSULE (FP) PO ONE (20:16)
[2019-07-01] MEDS: SENNOSIDES 8.6MG TABLET (FP) PO SCH (21:41)
[2019-07-01] MEDS: OLANZapine 10 MG TABLET PO SCH (21:41)
[2019-07-01] MEDS: MELATONIN 5 MG TABLETS PO SCH (21:41)
[2019-07-02] MEDS: METHADONE HCL 40 MG DISPERSABLE TABLET PO SCH (06:36)
[2019-07-02 08:30] LABS: BASO % 0.4 % (0-2.0); EOS % 5.1 % (0-4.5); HEMATOCRIT 42.7 % (35.4-49); HEMOGLOBIN 14.2 GM/dL (11.7-16.9); LYMPH % 30.1 % (8-40); MCH 28.5 pg (25.7-33.7); MCHC 33.3 g/dl (32.0-35.9); MEAN CELL VOLUME 85.6 fl (80-96); MEAN PLT VOLUME 8.1 fl (7.5-11.1); NEUT % 56.4 % (42.8-82.8); PLATELET COUNT 204 K/MM3 (134-434); RBC 4.99 M/mm3 (4.00-5.60); RDW 13.5 % (11.9-15.9); WHITE BLOOD COUNT 6.6 K/mm3 (4.0-10.0)
[2019-07-02 08:46] LABS: ALBUMIN 3.3 g/dl (3.4-5.0); BILIRUBIN,TOTAL 0.4 mg/dL (0.2-1); BLOOD UREA NITROGEN 12.2 mg/dL (7-18); CALCIUM 8.9 mg/dL (8.5-10.1); CREATININE 0.8 mg/dL (0.55-1.3); POTASSIUM 4.4 mmol/L (3.5-5.1); TOT PROT 6.4 g/dl (6.4-8.2)
[2019-07-02] MEDS: FOLIC ACID 1 MG TABLET (FP) PO SCH (09:29)
[2019-07-02] MEDS: THIAMINE HCL 100 MG TABLET (FP) PO SCH (09:29)
[2019-07-02] MEDS: NICOTINE 21 MG/24 HOURS TOPICAL PATCH TD SCH (09:29)
[2019-07-02] MEDS: MULTIVITAMINS (DAILY MVI) TABLET (FP) PO SCH (09:30)
[2019-07-02] MEDS: amLODIPine BESYLATE 5 MG TABLET (FP) PO SCH (09:30)
[2019-07-02] MEDS: POLYETHYLENE GLYCOL 3350 119 GM BTL PO SCH (09:35)
--- NOTE | 2019-07-02 14:19 | PN.GI ---
GI Progress Note Subjective: no diarrhea, no evidence of withdrawal, sleepy - Objective Vital Signs: Vital Signs Temperature 98.1 F 07/02/19 13:30 Pulse Rate 67 07/02/19 13:30 Respiratory Rate 07/02/19 13:30 Blood Pressure 115/61 07/02/19 13:30 O2 Sat by Pulse Oximetry (%) 98 06/29/19 09:00 HENT: No: Atraumatic Neck: No: Supple Cardiovascular: No: Regular Rate and Rhythm Respiratory: No: CTA Bilaterally ...Palpate: Yes: Soft. No: Firm/Rigid, Guarding, Hepatomegaly, Mass, Pulsatile Mass, Splenomegaly, Tenderness Labs: CBC, BMP 07/02/19 07:13 07/02/19 07:13 INR, PTT INR 1.03 (0.83-1.09) 07/01/19 08:43 Problem List - Problems (1) Alcohol withdrawal Assessment/Plan: R> continue detox protocol Code(s): F10.239 - ALCOHOL DEPENDENCE WITH WITHDRAWAL, UNSPECIFIED Qualifiers: Complication of substance-induced condition: with unspecified complication Qualified Code(s): F10.239 - Alcohol dependence with withdrawal, unspecified (2) Polysubstance abuse Code(s): F19.10 - OTHER PSYCHOACTIVE SUBSTANCE ABUSE, UNCOMPLICATED (3) Elevated liver enzymes Assessment/Plan: stable mild increase in ALP DR Laughlin will assume care in am Code(s): R74.8 - ABNORMAL LEVELS OF OTHER SERUM ENZYMES
--- NOTE | 2019-07-02 18:30 | PN ---
Progress Note (short form) - Note Progress Note: Subjective: no fever or chills. he has mid abd discomfort . No diarrhea Objective: Vital Signs: Last Vital Signs Temp Pulse Resp BP Pulse Ox 98.1 F 67 20 115/61 98 07/02/19 13:30 07/02/19 13:30 07/02/19 13:30 07/02/19 13:30 06/29/19 09:00 Laboratory Results - last 24 hr 07/02/19 07/02/19 07:13 07:13 WBC 6.6 RBC 4.99 Hgb 14.2 Hct 42.7 MCV 85.6 MCH 28.5 MCHC 33.3 RDW 13.5 Plt Count 204 MPV 8.1 Absolute Neuts (auto) 3.7 Neutrophils % 56.4 D Lymphocytes % 30.1 D Monocytes % 8.0 D Eosinophils % 5.1 H D Basophils % 0.4 Nucleated RBC % 0 Sodium 139 Potassium 4.4 Chloride 105 Carbon Dioxide 31 Anion Gap 4 L BUN 12.2 Creatinine 0.8 Est GFR (CKD-EPI)AfAm 121.57 Est GFR (CKD-EPI)NonAf 104.89 Random Glucose 105 Calcium 8.9 Total Bilirubin 0.4 AST 20 ALT 45 Alkaline Phosphatase 151 H Total Protein 6.4 Albumin 3.3 L Physical Exam: NAD. posterior neck scar. CV: RRR. Lungs: CTAB Abd: soft, TTP in LLQ and RLQ and suprapubic area .No rebound tenderness or guarding . some discomfort in epigastric area Ext: No edema or erythema ASSESSMENT AND PLAN: 48 y/o man with h./o alcohol abuse, HTN, DM , depression, bipolar, schizoaffective Do, who presented to [facility] for detox and was brought here for fever and N/V/D 1- N/V/D: No diverticulitis or colitis on CT scan monitor off Abx 2- dilated stomach. Seen by GI , no intervention at this time unless he has N/V . 3- Mass in R lower cardiophrenic angle. CT chest indicates another lesion which could be scarringin fissure. - plan for IR bx tomorrow - heme/onc eval pending 3- ETOH WD: - finished detox course. no signs of withdrawal - cont folate and thiamine 4- H/o HTN: -cont norvasc 5- H/o DM: Not on any meds at home . A1c 5.7 6- H/o Opioid use: cont methadone 7- Agitation: cont zyprexa per psych . avoid benzos No SI . Hold lovenox for bx tomorrow Visit type - Emergency Visit Emergency Visit: Yes ED Registration Date: 06/27/19 Care time: The patient presented to the Emergency Department on the above date and was hospitalized for further evaluation of their emergent condition. - New Patient This patient is new to me today: No - Critical Care Critical Care patient: No
[2019-07-02] MEDS: MELATONIN 5 MG TABLETS PO SCH (21:37)
[2019-07-02] MEDS: SENNOSIDES 8.6MG TABLET (FP) PO SCH (21:37)
[2019-07-02] MEDS: OLANZapine 10 MG TABLET PO SCH (21:37)
[2019-07-02] MEDS ORDERED: diphenhydrAMINE HCL 25 MG CAPSULE (FP) PO ONE (22:06)
[2019-07-03] MEDS: METHADONE HCL 40 MG DISPERSABLE TABLET PO SCH (05:51)
[2019-07-03] MEDS: FOLIC ACID 1 MG TABLET (FP) PO SCH (09:06)
[2019-07-03] MEDS: POLYETHYLENE GLYCOL 3350 119 GM BTL PO SCH (09:06)
[2019-07-03] MEDS: NICOTINE 21 MG/24 HOURS TOPICAL PATCH TD SCH ×2 (09:06→18:57)
[2019-07-03] MEDS: amLODIPine BESYLATE 5 MG TABLET (FP) PO SCH (09:06)
[2019-07-03] MEDS: MULTIVITAMINS (DAILY MVI) TABLET (FP) PO SCH (09:07)
[2019-07-03] MEDS: THIAMINE HCL 100 MG TABLET (FP) PO SCH (09:07)
--- NOTE | 2019-07-03 15:35 | PN ---
Physical Exam: SUBJECTIVE: Patient seen and examined at bedside. pt states he is feeling better. he is asking if he can stay an extra night after the biopsy so he can rest. OBJECTIVE: Vital Signs Period Temp Pulse Resp BP Sys/Kern Pulse Ox Last 24 Hr 97.8 F-98.7 F 61-78 14-20 110-148/56-92 100-100 GENERAL: The patient is awake, alert, and fully oriented, in no acute distress. HEAD: Normal with no signs of trauma. EYES: PERRL, extraocular movements intact ENT: moist mucous membranes. LUNGS: Breath sounds equal, clear to auscultation bilaterally, no wheezes, no crackles, no accessory muscle use. HEART: Regular rate and rhythm, S1, S2 without murmur, rub or gallop. ABDOMEN: Soft, nontender, nondistended, normoactive bowel sounds, no guarding EXTREMITIES: 2+ pulses, warm, well-perfused, no edema. NEUROLOGICAL: Cranial nerves II through XII grossly intact. Normal speech, gait not observed. SKIN: Warm, dry, normal turgor, no rashes or lesions noted Laboratory Results 07/02/19 07:13 07/02/19 07:13 07/02/19 07/02/19 07:13 07:13 Hep A IgM Ab Confirm Negative Hep Bs Antigen Negative Hep Bs Antibody Non reactive Hep B Core IgM Ab Negative Negative Hep B Core Ab Interpret Negative Hepatitis C Ab (EIA) <0.1 Current Medications Amlodipine Besylate (Norvasc -) 5 mg PO DAILY [facility] Last Admin: 07/03/19 09:06 Dose: Not Given Folic Acid (Folic Acid -) 1 mg PO DAILY [facility] Last Admin: 07/03/19 09:06 Dose: Not Given Melatonin (Melatonin) 10 mg PO [facility] Last Admin: 07/02/19 21:37 Dose: 10 mg Methadone HCl (Dolophine -) 200 mg PO DAILY@0600 [facility] Last Admin: 07/03/19 05:51 Dose: 200 mg Multivitamins/Minerals/Vitamin C (Tab-A-Vit -) 1 tab PO DAILY [facility] Last Admin: 07/03/19 09:07 Dose: Not Given Nicotine (Nicoderm Patch -) 21 mg TD DAILY [facility] Last Admin: 07/03/19 09:06 Dose: Not Given Olanzapine (Zyprexa -) 10 mg PO [facility] Last Admin: 07/02/19 21:37 Dose: 10 mg Ondansetron HCl (Zofran Injection) 4 mg IVPUSH Q6H PRN PRN Reason: NAUSEA Polyethylene Glycol (Miralax (For Daily Use) -) 17 gm PO DAILY [facility] Last Admin: 07/03/19 09:06 Dose: Not Given Senna (Senna -) 2 tab PO [facility] Last Admin: 07/02/19 21:37 Dose: Not Given Thiamine HCl (Vitamin B1 -) 100 mg PO DAILY [facility] Last Admin: 07/03/19 09:07 Dose: Not Given CT Chest: Previously visualized nonspecific soft tissue mass lesion in the right cardiophrenic angle is again seen measuring 5 x 3.7 cm with heterogeneous attenuation and enhancement. Its appearance is not typical for a lymph node. Other causes for a cardiophrenic mass could not be excluded. No enlarged mediastinal or hilar lymph nodes are identified. Nodular density in the right upper lobe abutting the fissure, axial image 48 that appears more like linear scarring on the coronal and sagittal reformatted images. A follow-up CT scan of the chest in 6-12 months would be helpful for further evaluation. CT Abdomen/ Pelvis: Impression: An approximately 5.4 x 4 cm nonspecific soft tissue lesion is seen within the right cardiophrenic angle - ? representing lymphadenopathy. A dedicated chest CT study is suggested. Mild splenomegaly is noted. Mild to moderate gastric overdistention is seen which could be on the basis of recent meal/fluid ingestion (versus gastroparesis or gastric outlet obstruction). Correlate clinically. Moderate colonic fecal retention. Marked left hip degenerative joint changes. Status post right hip prosthesis. ASSESSMENT/PLAN: 49 yo M PMH HTN, DM, Depression, bipolar, schizoaffective, Hx of alcohol abuse presented to [facility] for fevers, chills, nausea, vomiting. On workup, pt had incidental finding of mass in R cardiophrenic angle. Mass in R cardiophrenic angle - CT findings above - IR biopsy today -heme/ onc eval outpt - CXR neg for post bx pneumothorax. Fever/ n/ v/d - stable off abx Dilated stomach - f/u outpt GI for EGD ETOH withdrawal - no signs of withdrawal -continue folate and thiamine HTN - c/w norvasc DM - A1C 5.7, well controlled H/o Opiod Use: -c/w methadone 200 mg Agitation: - Psych ( Dr. Celis) following - c/w Zyprexa DVT ppx: Lovenox Dispo: possible DC tomorrow Visit type - Emergency Visit Emergency Visit: No - New Patient This patient is new to me today: Yes Date on this admission: 07/03/19 - Critical Care Critical Care patient: No - Discharge Referral Referred to [facility] Med P.C.: No ATTENDING PHYSICIAN STATEMENT I saw and evaluated the patient. I reviewed the resident's note and discussed the case with the resident. I agree with the resident's findings and plan as documented. SUBJECTIVE: OBJECTIVE: ASSESSMENT AND PLAN:
--- NOTE | 2019-07-03 19:38 | PN ---
Teaching Attending Note Name of Resident: Jeanie Weller ATTENDING PHYSICIAN STATEMENT I saw and evaluated the patient. I reviewed the resident's note and discussed the case with the resident. I agree with the resident's findings and plan as documented. SUBJECTIVE: hip pain b/l. chronic , radiating to his lower quadrants OBJECTIVE: NAD. posterior neck scar. CV: RRR. Lungs: CTAB Abd: soft, TTP in LLQ and RLQ .No rebound tenderness or guarding . Ext: No edema or erythema ASSESSMENT AND PLAN: 48 y/o man with h./o alcohol abuse, HTN, DM , depression, bipolar, schizoaffective Do, who presented to [facility] for detox and was brought here for fever and N/V/D 1- N/V/D: No diverticulitis or colitis on CT scan monitor off Abx 2- dilated stomach. Seen by GI , no intervention at this time unless he has N/V . 3- Mass in R lower cardiophrenic angle. CT chest indicates another lesion which could be scarring in fissure. - Bx was done today . No pneumothorax on xray - heme/onc eval pending 3- ETOH WD: - finished detox course. no signs of withdrawal - cont folate and thiamine 4- H/o HTN: -cont norvasc 5- H/o DM: Not on any meds at home . A1c 5.7 6- H/o Opioid use: cont methadone 7- Agitation: cont zyprexa per psych . avoid benzos No SI . resume DVT px plan for dc tomorrow. he is not interested in [facility] rehab
[2019-07-03] MEDS: HEPARIN NA (PORCINE) 5,000 UNITS/ML 1ML VIAL SQ SCH (21:13)
[2019-07-03] MEDS: MELATONIN 5 MG TABLETS PO SCH (21:13)
[2019-07-03] MEDS: SENNOSIDES 8.6MG TABLET (FP) PO SCH (21:13)
[2019-07-03] MEDS: OLANZapine 10 MG TABLET PO SCH (21:14)
--- NOTE | 2019-07-03 22:21 | CONSULT ---
Consult - text type - Consultation Consultation Note: Mr. Soares is a 48 yo male w/ pmh of HTN and substance abuse (on methadone) who presents for evaluation from [facility] where he is currently admitted for detox. Patient reports using alcohol and xanax until yesterday morning when he presented to detox. He presents with nausea/vomiting/diarrhea Allergies/Adverse Reactions: Allergies Allergy/AdvReac Type Severity Reaction Status Date / Time No Known Allergies Allergy Verified 06/26/19 12:45 Home Medications: Ambulatory Orders metFORMIN HCL [Metformin ER Osmotic] 500 mg PO BID #60 tab.er.24 02/24/18 Losartan 50Mg/Hctz 12.5MG [Hyzaar -] 1 tab PO DAILY #30 tablet 02/25/18 Methadone [Dolophine -] 200 mg PO DAILY 06/26/19 HTN: Yes Psychiatric Problems: Yes (cocaine,xanax, klonopin, heroin abuse) - Surgical History Orthopedic Surgery: Yes (R HIP REPLACEMNT, FCSOE6ES FUSION TO C SPINE) - Psycho Social/Smoking Cessation Hx Smoking History: Current every day smoker Have you smoked in the past 12 months: Yes Substance Use Type: Alcohol, Opiates (HEROIN), Prescribed (METHdone), Tranquilizers (XANAX/KLONOPINS) AFVSS Cor: RSR, No murmurs, No gallops Lungs: Clear to P&A Abd: Soft, Normal bowel sounds, No organomegaly Ext:No significant edema Lbs/MEds reviewed A/P 48 y/o man with h./o alcohol abuse, HTN, DM , depression, bipolar, schizoaffective Do, who presented to [facility] for detox and was brought here for fever and N/V/D We have been consulted for mass in R lower cardiophrenic angle approx. 5cm. Biopsy done via IR and pending Await biopsy IF not adequte, consider CT surgery evaluation Will need to follow up on the biopsy RUL scarring --needs follow up CT in 6months
[2019-07-04] MEDS: METHADONE HCL 40 MG DISPERSABLE TABLET PO SCH (05:34)
[2019-07-04] MEDS: HEPARIN NA (PORCINE) 5,000 UNITS/ML 1ML VIAL SQ SCH ×2 (05:34→13:57)
[2019-07-04 08:19] LABS: ALBUMIN 3.4 g/dl (3.4-5.0); BILIRUBIN,TOTAL 0.4 mg/dL (0.2-1); BLOOD UREA NITROGEN 16.6 mg/dL (7-18); CREATININE 0.9 mg/dL (0.55-1.3); MAGNESIUM 2.2 mg/dL (1.8-2.4); PHOSPHOROUS 4.1 mg/dL (2.5-4.9); POTASSIUM 4.7 mmol/L (3.5-5.1); TOT PROT 6.7 g/dl (6.4-8.2)
[2019-07-04] MEDS: MULTIVITAMINS (DAILY MVI) TABLET (FP) PO SCH (10:04)
[2019-07-04] MEDS: amLODIPine BESYLATE 5 MG TABLET (FP) PO SCH (10:04)
[2019-07-04] MEDS: NICOTINE 21 MG/24 HOURS TOPICAL PATCH TD SCH (10:04)
[2019-07-04] MEDS: THIAMINE HCL 100 MG TABLET (FP) PO SCH (10:04)
[2019-07-04] MEDS: FOLIC ACID 1 MG TABLET (FP) PO SCH (10:04)
[2019-07-04] MEDS: POLYETHYLENE GLYCOL 3350 119 GM BTL PO SCH (10:05)
[2019-07-04 14:59] VITALS: BP 158/84; PULSE 64; TEMP 98.1
--- NOTE | 2019-07-04 16:00 | PN ---
Teaching Attending Note Name of Resident: Tony Segal ATTENDING PHYSICIAN STATEMENT I saw and evaluated the patient. I reviewed the resident's note and discussed the case with the resident. I agree with the resident's findings and plan as documented. SUBJECTIVE: No fever or chills. no N/V . No pain . No OSB . OBJECTIVE: NAD. posterior neck scar. CV: RRR. Lungs: CTAB , equaL breath sounds at both sides Ext: No edema or erythema ASSESSMENT AND PLAN: 48 y/o man with h./o alcohol abuse, HTN, DM , depression, bipolar, schizoaffective Do, who presented to [facility] for detox and was brought here for fever and N/V/D. 1- N/V/D: resolved 2- Dilated stomach. f/u with GI as out pt 3- Mass in R lower cardiophrenic angle. s/p Bx by IR yesteday. No pneumothorax. - fu with heme as outpt . - patietn prefers to follow with his pCP first. he understands that his PCP needs to obtain bx results 3- ETOH WD: - finished detox course. no signs of withdrawal - cont folate and thiamine 4- H/o HTN: -cont norvasc 5- H/o DM: Not on any meds at home . A1c 5.7 6- H/o Opioid use: cont methadone 7- Agitation: will not continue zyprexa as out pt as he is on high dose methadone and already has prolonged Qtc patient is ambulatory and steady. ( witnessed by me and other staff members). we contacted [facility] for rehab . No beds available. patient is to be discharged home .
--- NOTE | 2019-07-04 18:00 | DS ---
Physical Exam: SUBJECTIVE: Patient seen and examined at bedside. pt states he has a court date approaching and that hes not ready to be discharged as he is homeless and doesnt have living arrangements OBJECTIVE: Vital Signs Period Temp Pulse Resp BP Sys/Kern Pulse Ox Last 24 Hr 97.7 F-98.1 F 59-93 18-20 106-162/52-100 PHYSICAL EXAM GENERAL: The patient is awake, alert, and fully oriented, in no acute distress. HEAD: Normal with no signs of trauma. LUNGS: Breath sounds equal, clear to auscultation bilaterally, no wheezes, no crackles, no accessory muscle use. HEART: Regular rate and rhythm, S1, S2 without murmur, rub or gallop. ABDOMEN: Soft, nontender, nondistended, normoactive bowel sounds, no guarding, no rebound, no hepatosplenomegaly, no masses. EXTREMITIES: 2+ pulses, warm, well-perfused, no edema. pt has tenderness to palpation over L hip NEUROLOGICAL: Cranial nerves II through XII grossly intact. Normal speech SKIN: Warm, dry, normal turgor, no rashes or lesions noted. Laboratory Results - last 24 hr 07/04/19 07:30 Sodium 138 Potassium 4.7 Chloride 104 Carbon Dioxide 32 Anion Gap 3 L BUN 16.6 Creatinine 0.9 Est GFR (CKD-EPI)AfAm 115.02 Est GFR (CKD-EPI)NonAf 99.24 Random Glucose 109 H Calcium 9.0 Phosphorus 4.1 Magnesium 2.2 Total Bilirubin 0.4 AST 15 ALT 38 Alkaline Phosphatase 137 H Total Protein 6.7 Albumin 3.4 HOSPITAL COURSE: Date of Admission:06/27/19 49 yo M PMH HTN, DM, Depression, bipolar, schizoaffective, Hx of alcohol abuse presented to [facility] for fevers, chills, nausea, vomiting. On workup, pt had incidental finding of mass in R cardiophrenic angle. pt had a biopsy for the lung mass on 07/04/2019. pt should be evaluated with heme onc outpt. pt was negative for a pneumothorax or any acute chest pathology following the biopsy. pt has been stable off antibiotics. while inpt , a dilated stomach was eval on CT. pt should follow up with GI outpt for EGD pt currently has no signs of alcohol withdrawal and should continue on thiamine, folate and multivitamins. multiple attempts were made to try for voluntary alcohol rehab and no beds are available at [facility]. The Pt htn was managed with norvasc. A1c was 5.7. pt is on methadone 200 mg and last dose was today. pt was started on zyprexa after inpt psych eval but should follow with outpt psych before continuing to take as outpt as the risk of abuse is high. Date of Discharge: 07/04/19 Minutes to complete discharge: 36 Discharge Summary Problems reviewed: Yes Reason For Visit: ALCOHOL WITHDRAWAL SYNDROME Current Active Problems Alcohol withdrawal (Acute) Elevated liver enzymes (Acute) Lung mass (Acute) Condition: Improved - Instructions Diet, Activity, Other Instructions: YOUR VISIT You came to the hospital because you were having abdominal pain You were admitted to the hospital for a mass in your R lung. You had a biopsy of this mass. your primary care doctor needs to obtain biopsy results or you follow with the electrical transmission engineer While here you were seen by medicine physicians, and by hematology. You are now stable and may return home. MEDICATIONS Please continue to take your medications as prescribed: Amlodipine 5 mg by mouth everyday Folic Acid 1 mg daily Multivitamins daily Thiamine 100 mg daily continue to follow with your methadone clinic. ADDITIONAL CARE Please make an appointment to see your primary care provider, Dr. Jennings . in 1 week . 1 week from today. your PCP discuss your biopsy results. Please make an appointment to see a electrical transmission engineer in 1 week. A referral has to Dr. Sutton has been provided. Please make an appointment to see a gastroenterologst in 1 week. A referral has to Dr. Edwards has been provided. You might need an endoscopy due to your distended stomach. Please continue to have a low sodium diet. Please refrain from smoking. It is recommended to have a repeat CT scan in 6 months to assess the lung scarring in the right lung .( primary doctor ) ADDITIONAL INFORMATION Please call 911 or come directly to the emergency department if you experience unusual headache, vision change, shortness of breath, chest pain, numbness, tingling, loss of alertness/awareness, loss of function, unusual bleeding or any alarming symptoms. Referrals: Michael Edwards DO [Staff Physician] - 1 Week Junior Sutton MD [Staff Physician] - 1 Week Disposition: HOME - Home Medications Comprehensive Discharge Medication List: Ambulatory Orders Methadone [Dolophine -] 200 mg PO DAILY 06/26/19 Amlodipine Besylate [Norvasc -] 1 tab PO DAILY 06/28/19 Folic Acid - 1 mg PO DAILY tablet 07/04/19 Multivitamins [Multivit ([facility] Formulary)] 1 tab PO DAILY tab 07/04/19 Thiamine HCl [Vitamin B1 -] 100 mg PO DAILY tablet 07/04/19 This patient is new to me today: No Emergency Visit: No Critical Care patient: No - Discharge Referral [facility]erred to [facility] Med [facility].C[facility] Yes Physician Referral: Florentino Edwards DO (GI) ATTENDING PHYSICIAN STATEMENT I saw and evaluated the patient. I reviewed the resident's note and discussed the case with the resident. I agree with the resident's findings and plan as documented. SUBJECTIVE: OBJECTIVE: ASSESSMENT AND PLAN:
--- NOTE | 2019-07-10 17:25 | PATH ---
Surgical Pathology Report Patient Name: KALLIE OROZCO [facility]. Rec. #: [id number] /Age/Gender: 1970 (Age: 49) / M Account: [id number] Location: [address] [place] [address]/[facility] Taken: 07/03/2019 Received: 07/03/2019 Reported: 07/10/2019 Physicians: Zhane Nolasco M.D. Ruy Tio, DO Specimen(s) Received MEDIASTINAL/CARDIOPHRENIC ANGLE MASS, RIGHT Clinical History 48-year-old male with a solid right cardiophrenic angle mass Final Diagnosis MEDIASTINAL/CARDIOPHRENIC ANGLE MASS, RIGHT, CT GUIDED CORE BIOPSY: SPINDLE CELL NEOPLASM, COMPATIBLE WITH SOLITARY FIBROUS TUMOR. SEE COMMENT. Comment: Histologic sections show a bland spindle cell proliferation with minimal cytoplasm and indistinct nucleoli in a vague storiform pattern associated with blood vessels. No atypia, necrosis, or mitosis identified. Immunohistochemical stains performed at [place], [place] ([id number]) and interpreted at [facility] show the neoplasm is positive for vimentin, CD34, BCL2, CD99, SMA (weak, patchy); while negative for AE1/3, CD31, Calretinin, DOG-1, CD117 (C-kit), desmin, S100, and YENNY. Proliferative marker, ki-67, is low. Immunohistochemical stain for STAT-6, performed and interpreted at [facility] ([id number]) is positive (nuclear). Overall histomorphology and immunophenotype are compatible with a Solitary Fibrous tumor. Suggest clinical and radiologic correlation. Case seen in intradepartmental review with consensus on diagnosis. Positive and negative controls (internal if applicable) show appropriate results. Electronically Signed Laurie Byrne M.D. Addendum Reported: 07/12/2019 Addendum Diagnosis Findings discussed with Drs. Gonzalez (07/11/19) and Eufemia (07/12/19). Laurie Byrne M.D. Gross Description Received in formalin labeled "mediastinal biopsy," is a 0.7 x 0.3 x 0.1 cm aggregate of smallwood-brown soft tissue fragments. The formalin is filtered and the specimen is entirely submitted in one cassette. DL/07/03/2019 saudi/07/03/2019
--- NOTE | 2019-07-12 17:09 | HOSP ---
Subjective - Review of Symptoms Events since last encounter: I was called by someone in pathology department to notify me of the pathology result of the mediastinal tumor ( spindle cell/ solitary fiberous tumor) . This could be malignant and the patient should follow with Hem/Onc. I was not able to reach patient through his phone , and [facility] care staff did not allow direct conversation with patient. I was not able to reach Dr. Gonzalez. Dr. Gonzalez is aware of the diagnosis as per a note he wrote today. Dr. Gonzalez was messaged by me Via [employer] to ask patient to f/u with dr. Sutton. Physical Examination Vital Signs: Vital Signs Temperature 98.1 F 07/04/19 14:55 Pulse Rate 64 07/04/19 14:55 Respiratory Rate 20 07/04/19 14:55 Blood Pressure 158/84 07/04/19 14:55 O2 Sat by Pulse Oximetry (%) 100 07/03/19 12:39 Labs: CBC, BMP 07/02/19 07:13 07/04/19 07:30
== END 2019-07-04 20:15 | disposition other institution (70) | DRG 136 ==
LOC: JER 21:57 → JERBED 23:19 → J6S 06-28 04:40
PROVIDERS: ADMIT Internal Medicine; ATTEND Internal Medicine
PROC: 0WBC3ZX Excision of Mediastinum, Percutaneous Approach, Diagnostic (ICD-10-PCS; principal; 2019-07-03)
DX: C38.3 Malignant neoplasm of mediastinum, part unspecified (principal); D15.2 Benign neoplasm of mediastinum; B34.9 Viral infection, unspecified; F11.20 Opioid dependence, uncomplicated; R16.1 Splenomegaly, not elsewhere classified; F25.9 Schizoaffective disorder, unspecified; A08.4 Viral intestinal infection, unspecified; F10.230 Alcohol dependence with withdrawal, uncomplicated; R91.8 Other nonspecific abnormal finding of lung field; I10 Essential (primary) hypertension; Z79.84 Long term (current) use of oral hypoglycemic drugs; F17.210 Nicotine dependence, cigarettes, uncomplicated; F32.9 Major depressive disorder, single episode, unspecified; R74.8 Abnormal levels of other serum enzymes; R45.1 Restlessness and agitation; K31.89 Other diseases of stomach and duodenum
CPT/HCPCS: 32405; 36415; 71045-TC-FY; 71260-TC; 74177-TC; 77012-TC; 80053; 80074; 81003; 82248; 82272; 82962; 83036; 83735; 84100; 85025; 85027; 85610; 86704; 86705; 86706; 87045; 87046; 87070; 87324; 87449; 87804; 87880; 88305-TC; 93005; 93010; 97116-GP; 97161-GP; 99284-25; J0131; J0735; J1644; J7030; Q9967

== ENCOUNTER 2019-07-04 21:07 | Inpatient (IN) | payer OTHER ==
[2019-07-05] VITALS: BMI 31.5
--- NOTE | 2019-07-05 00:31 | HP ---
CIWA Score - Admission Criteria OASAS Guidelines: Admission for Medically Managed Detox: Requires at least one of the followin. CIWA greater than 12 2. Seizures within the past 24 hours 3. Delirium tremens within the past 24 hours 4. Hallucinations within the past 24 hours 5. Acute intervention needed for co occurring medical disorder 6. Acute intervention needed for co occurring psychiatric disorder 7. Severe withdrawal that cannot be handled at a lower level of care (continued vomiting, continued diarrhea, abnormal vital signs) requiring intravenous medication and/or fluids 8. Admitting History and Physical - Past Medical History Cardiovascular: Yes: HTN Psych: Yes: Addictions (opiates, alcohol, benzos) Endocrine: Yes: Diabetes Mellitus - Past Surgical History Past Surgical History: Yes: Joint Replacement (Right THR, c2-c7 spinal fusion) - Smoking History Smoking history: Current every day smoker Have you smoked in the past 12 months: Yes Aproximately how many cigarettes per day: 20 - Alcohol/Substance Use Hx Alcohol Use: Yes - Social History ADL: Independent Occupation: Unemployed History of Recent Travel: No Admission ROS [facility] - [facility] Chief Complaint: Seeking admission to Rehab. Allergies/Adverse Reactions: Allergies Allergy/AdvReac Type Severity Reaction Status Date / Time No Known Allergies Allergy Verified 07/04/19 23:46 History of Present Illness: 49 years old male is seeking admission to Rehab. He was admitted to detox from 06/26/2019-06/27/2019 and transferred to emergency room for further evaluation. He was admitted for fever and he had incidental mass found in the right cardiophrenic angle and biopsy of lung mass on 07/04/2019. He has medical history of hypertension, cluster headaches, depression, borderline diabetes, and is status post cervical fracture and fusion repair in 2016. He has psych. diagnosis of depression, bipolar disorder and schizo-affective disorder. He denies suicidal ideation at this time. He is on Methadone 200mg with [facility]. Dose is yet to be confirmed by the nurse. Patient had chest CT and RAD/ Chest PA done. Exam Limitations: Physical Impairment - Ebola screening Have you traveled outside of the country in the last 21 days: No Have you had contact with anyone from an Ebola affected area: No Do you have a fever: No - Review of Systems Constitutional: No Symptoms Reported EENT: reports: No Symptoms Reported Respiratory: reports: No Symptoms reported Cardiac: reports: No Symptoms Reported GI: reports: No Symptoms Reported : reports: No Symptoms Reported Musculoskeletal: reports: No Symptoms Reported Integumentary: reports: No Symptoms Reported Neuro: reports: No Symptoms reported Endocrine: reports: No Symptoms Reported Hematology: reports: No Symptoms Reported Psychiatric: reports: No Sypmtoms Reported, Mood/Affect Appropiate, Orientated x3 Other Systems: Reviewed and Negative Patient History - Patient Medical History Hx Anemia: No Hx Asthma: No Hx Chronic Obstructive Pulmonary Disease (COPD): No Hx Cancer: No Hx Cardiac Disorders: No Hx Congestive Heart Failure: No Hx Hypertension: Yes (Norvasc) Hx Hypercholesterolemia: No Hx Pacemaker: No HX Cerebrovascular Accident: No Hx Seizures: No Hx Dementia: No Hx Diabetes: Yes (Not on medication) Hx Gastrointestinal Disorders: No Hx Liver Disease: No Hx Genitourinary Disorders: No Hx Sexually Transmitted Disorders: No Hx Renal Disease (ESRD): No Hx Thyroid Disease: No Hx Human Immunodeficiency Virus (HIV): No Hx Hepatitis C: No Hx Depression: Yes Hx Suicide Attempt: No (Denies suicidal ideation at this time) Hx Bipolar Disorder: No Hx Schizophrenia: No Other Medical History: Cluster Headache - Not on medcation - Patient Surgical History Past Surgical History: Yes Hx Neurologic Surgery: No Hx Cataract Extraction: No Hx Cardiac Surgery: No Hx Lung Surgery: No Hx Breast Surgery: No Hx Breast Biopsy: No Hx Abdominal Surgery: No Hx Appendectomy: No Hx Cholecystectomy: No Hx Genitourinary Surgery: No Hx Section: No Hx Orthopedic Surgery: Yes (R HIP REPLACEMNT, SPINAL FUSION TO C SPINE) Other Surgical History: SPINAL FUSION Anesthesia Reaction: Yes - PPD History Previous Implant?: Yes Documented Results: Negative w/proof Implanted On Prior [facility] Admission?: Yes Date: 02/24/18 PPD to be Administered?: Yes - Reproductive History Patient is a Female of Child Bearing Age (11 -55 yrs old): No (male) - Smoking Cessation Smoking history: Current every day smoker Have you smoked in the past 12 months: Yes Aproximately how many cigarettes per day: 20 Hx Chewing Tobacco Use: No Initiated information on smoking cessation: Yes 'Breaking Loose' booklet given: 07/05/19 - Substance & Tx. History Hx Alcohol Use: No Hx Substance Use: Yes Substance Use Type: Tranquilizers Hx Substance Use Treatment: Yes ([facility]) - Substances abused Alprazolam (Xanax) Substance route: Oral Frequency: Daily Amount used: 2 to 5 mg sticks Age of first use: 25 Date of last use: 06/26/19 Benzodiazepine (Klonopin) Substance route: Oral Frequency: Daily Amount used: 2 mg up to 5 of 2 mg. Age of first use: 25 Date of last use: 06/26/19 Admission Physical Exam [facility] - Vital Signs Vital Signs: Vital Signs - 24 hr 07/04/19 07/05/19 23:53 00:15 Temperature 97.1 F L 97.1 F L Pulse Rate 67 67 Respiratory 18 18 Rate Blood Pressure 188/101 H 188/101 H - Physical General Appearance: Yes: Within Normal Limits HEENTM: Yes: Within Normal Limits Respiratory: Yes: Lungs Clear, Normal Breath Sounds, No Respiratory Distress, Respiratory Distress Neck: Yes: Within Normal Limits Breast: Yes: Breast Exam Deferred Abdominal: Yes: Within Normal Limits Genitourinary: Yes: Within Normal Limits Back: Yes: Within Normal Limits Musculoskeletal: Yes: Back pain, Other (neck surgical scar) Extremities: Yes: Within Normal Limits Neurological: Yes: Within Normal Limits, Alert, Normal Mood/Affect Integumentary: Yes: Warm Lymphatic: Yes: Within Normal Limits - Diagnostic (1) Alcohol dependence Current Visit: Yes Status: Chronic Qualifiers: Complication of substance-induced condition: uncomplicated (2) Sedative, hypnotic or anxiolytic dependence Current Visit: Yes Status: Chronic (3) Diabetes Current Visit: Yes Status: Chronic Qualifiers: Diabetes mellitus type: type 2 (4) HTN (hypertension) Current Visit: Yes Status: Chronic Qualifiers: Hypertension type: unspecified Qualified Code(s): I10 - Essential (primary ) hypertension (5) Methadone maintenance therapy patient Current Visit: Yes Status: Chronic Cleared for Admission [facility] - Detox or Rehab [facility] Level of Care: Observation Bed Claeared for Rehab Admission: Yes Breathalyzer - Breathalyzer Breathalyzer: 0 Urine Drug Screen - Test Device Lot number: [id number] Expiration date: 04/17/21 - Control Is test valid?: Yes - Results Drug screen NEGATIVE: No Urine drug screen results: MTD-Methadone, BZO-Benzodiazepines Inpatient Rehab Admission - Rehab Decision to Admit Inpatient rehab admission?: Yes - Initial Determination Are CD services needed?: No Free of communicable disease: Yes Not in need of hospitalization: Yes - Rehab Admission Criteria Previous failed treatment: Yes Poor recovery environment: Yes Comorbidities: Yes Lacks judgement: No Patient is meeting Inpatient Rehab admission criteria:: Yes
[2019-07-05] MEDS ORDERED: MAGNESIUM CITRATE 300 ML BOTTLE PO PRN (00:51)
[2019-07-05] MEDS ORDERED: MAG HYDROX/AL HYDROX/SIMETH 30 ML UNIT-DOSE CUP PO PRN (00:51)
[2019-07-05] MEDS ORDERED: LOPERAMIDE HCL 2 MG CAPSULE PO PRN (00:51)
[2019-07-05] MEDS ORDERED: MENTHOL/PHENOL 1 EACH UD MM PRN (00:51)
[2019-07-05] MEDS ORDERED: P-EPHED 60MG/TRIPROLIDI 2.5MG TABLET PO PRN (00:51)
[2019-07-05] MEDS ORDERED: guaiFENesin 200 MG/10 ML 10 ML UNIT-DOSE CUPS PO PRN (00:51)
[2019-07-05] MEDS ORDERED: TUBERCULIN PPD 5 TU/0.1ML VIAL ID ONE (01:24)
[2019-07-05] MEDS: IBUPROFEN 400 MG TABLET (FP) PO PRN (01:51)
[2019-07-05] MEDS ORDERED: cloNIDine HCL 0.1 MG TABLET PO ONE (04:26)
--- NOTE | 2019-07-05 04:28 | HP ---
CIWA Score - Admission Criteria OASAS Guidelines: Admission for Medically Managed Detox: Requires at least one of the followin. CIWA greater than 12 2. Seizures within the past 24 hours 3. Delirium tremens within the past 24 hours 4. Hallucinations within the past 24 hours 5. Acute intervention needed for co occurring medical disorder 6. Acute intervention needed for co occurring psychiatric disorder 7. Severe withdrawal that cannot be handled at a lower level of care (continued vomiting, continued diarrhea, abnormal vital signs) requiring intravenous medication and/or fluids 8. Admitting History and Physical - Past Medical History Cardiovascular: Yes: HTN Psych: Yes: Addictions (opiates, alcohol, benzos) Endocrine: Yes: Diabetes Mellitus - Past Surgical History Past Surgical History: Yes: Joint Replacement (Right THR, c2-c7 spinal fusion) - Advance Directives Advance Directives: Yes: Living Will - Smoking History Smoking history: Current every day smoker Have you smoked in the past 12 months: Yes Aproximately how many cigarettes per day: 20 - Alcohol/Substance Use Hx Alcohol Use: No - Social History ADL: Independent Occupation: Unemployed History of Recent Travel: No Admission ROS [facility] Allergies/Adverse Reactions: Allergies Allergy/AdvReac Type Severity Reaction Status Date / Time No Known Allergies Allergy Verified 07/04/19 23:46 - Ebola screening Have you traveled outside of the country in the last 21 days: No Have you had contact with anyone from an Ebola affected area: No Do you have a fever: No Patient History - Patient Medical History Hx Anemia: No Hx Asthma: No Hx Chronic Obstructive Pulmonary Disease (COPD): No Hx Cancer: No Hx Cardiac Disorders: No Hx Congestive Heart Failure: No Hx Hypertension: Yes (Norvasc) Hx Hypercholesterolemia: No Hx Pacemaker: No HX Cerebrovascular Accident: No Hx Seizures: No Hx Dementia: No Hx Diabetes: Yes (Not on medication) Hx Gastrointestinal Disorders: No Hx Liver Disease: No Hx Genitourinary Disorders: No Hx Sexually Transmitted Disorders: No Hx Renal Disease (ESRD): No Hx Thyroid Disease: No Hx Human Immunodeficiency Virus (HIV): No Hx Hepatitis C: No Hx Depression: Yes Hx Suicide Attempt: No (Denies suicidal ideation at this time) Hx Bipolar Disorder: No Hx Schizophrenia: No Other Medical History: Cluster Headache - Not on medcation - Patient Surgical History Past Surgical History: Yes Hx Neurologic Surgery: No Hx Cataract Extraction: No Hx Cardiac Surgery: No Hx Lung Surgery: No Hx Breast Surgery: No Hx Breast Biopsy: No Hx Abdominal Surgery: No Hx Appendectomy: No Hx Cholecystectomy: No Hx Genitourinary Surgery: No Hx Section: No Hx Orthopedic Surgery: Yes (R HIP REPLACEMNT, SPINAL FUSION TO C SPINE) Other Surgical History: SPINAL FUSION Anesthesia Reaction: Yes - PPD History Previous Implant?: Yes Documented Results: Negative w/proof Implanted On Prior [facility] Admission?: Yes Date: 02/24/18 - Smoking Cessation Smoking history: Current every day smoker Have you smoked in the past 12 months: Yes Aproximately how many cigarettes per day: 20 Hx Chewing Tobacco Use: No Initiated information on smoking cessation: Yes - Substances abused Alprazolam (Xanax) Substance route: Oral Frequency: Daily Amount used: 2 to 5 mg sticks Age of first use: 25 Date of last use: 06/26/19 Benzodiazepine (Klonopin) Substance route: Oral Frequency: Daily Amount used: 2 mg up to 5 of 2 mg. Age of first use: Date of last use: 06/26/19 Admission Physical Exam [facility] - Vital Signs Vital Signs: Vital Signs - 24 hr 07/04/19 07/05/19 23:53 00:15 Temperature 97.1 F L 97.1 F L Pulse Rate 67 67 Respiratory 18 18 Rate Blood Pressure 188/101 H 188/101 H - Diagnostic (1) Alcohol dependence Current Visit: Yes Status: Chronic Qualifiers: Complication of substance-induced condition: uncomplicated (2) Sedative, hypnotic or anxiolytic dependence Current Visit: Yes Status: Chronic (3) Diabetes Current Visit: Yes Status: Chronic Qualifiers: Diabetes mellitus type: type 2 (4) HTN (hypertension) Current Visit: Yes Status: Chronic Qualifiers: Hypertension type: unspecified Qualified Code(s): I10 - Essential (primary ) hypertension (5) Methadone maintenance therapy patient Current Visit: Yes Status: Chronic Breathalyzer - Breathalyzer Breathalyzer: 0 Urine Drug Screen - Test Device Lot number: [id number] Expiration date: 04/17/21 - Control Is test valid?: Yes - Results Drug screen NEGATIVE: No Urine drug screen results: MTD-Methadone, BZO-Benzodiazepines
--- NOTE | 2019-07-05 04:30 | PN ---
S Progress Note Note: Patient's blood pressure is B/P 190/92. Patient is asymptomatic Vital Signs Temperature 97.8 F 07/05/19 04:40 Pulse Rate 89 07/05/19 04:40 Respiratory Rate 20 07/05/19 04:40 Blood Pressure 190/92 H 07/05/19 04:40 O2 Sat by Pulse Oximetry (%) Action; Clonidine 0.1mg tablet oral ordered
[2019-07-05] MEDS ORDERED: METHADONE HCL 40 MG DISPERSABLE TABLET PO ONE (09:49)
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
[2019-07-05] MEDS ORDERED: cloNIDine HCL 0.1 MG TABLET PO PRN (10:08)
[2019-07-05 10:30] LABS: URINE APPEARANCE CLEAR; URINE BILIRUBIN NEGATIVE (NEGATIVE); URINE COLOR YELLOW; URINE GLUCOSE (UA) NEGATIVE (NEGATIVE); URINE KETONE NEGATIVE (NEGATIVE); URINE LEUK ESTERASE NEGATIVE (NEGATIVE); URINE NITRITE NEGATIVE (NEGATIVE); URINE PROTEIN NEGATIVE (NEGATIVE)
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
[2019-07-05] MEDS: PRENATAL VITAMINS W/ FOLIC ACID TABLET (FP) PO SCH (10:50)
[2019-07-05] MEDS: amLODIPine BESYLATE 5 MG TABLET (FP) PO SCH (10:50)
[2019-07-05 11:58] LABS: HEMATOCRIT 41.2 % (35.4-49); HEMOGLOBIN 13.7 GM/dL (11.7-16.9); MCH 28.2 pg (25.7-33.7); MCHC 33.2 g/dl (32.0-35.9); MEAN PLT VOLUME 8.3 fl (7.5-11.1); PLATELET COUNT 236 K/MM3 (134-434); RBC 4.85 M/mm3 (4.00-5.60); RDW 13.2 % (11.9-15.9); WHITE BLOOD COUNT 8.2 K/mm3 (4.0-10.0)
[2019-07-05 12:35] LABS: ALBUMIN 3.5 g/dl (3.4-5.0); BILIRUBIN,TOTAL 0.4 mg/dL (0.2-1); BLOOD UREA NITROGEN 19.6 mg/dL (7-18); CALCIUM 8.8 mg/dL (8.5-10.1); CHLORIDE 106 mmol/L (98-107); CO2 28 mmol/L (21-32); CREATININE 0.8 mg/dL (0.55-1.3); GLUCOSE,RANDOM 106 mg/dL (74-106); POTASSIUM 4.8 mmol/L (3.5-5.1); SODIUM 140 mmol/L (136-145); TOT PROT 6.3 g/dl (6.4-8.2)
[2019-07-05 12:36] LABS: ALK PHOS 131 U/L (45-117); SGOT/AST 15 U/L (15-37); SGPT/ALT 34 U/L (13-61)
[2019-07-05] MEDS: hydrOXYzine PAMOATE 50 MG CAPSULE (FP) PO PRN (19:04)
[2019-07-05] MEDS: THIAMINE HCL 100 MG TABLET (FP) PO SCH (21:19)
[2019-07-05] MEDS: SUVOREXANT 10 MG TABLET PO PRN (21:19)
[2019-07-05] MEDS: cloNIDine HCL 0.1 MG TABLET PO PRN (21:19)
[2019-07-05] MEDS ORDERED: MELATONIN 5 MG TABLETS PO PRN (22:00)
[2019-07-06] MEDS: METHADONE HCL 40 MG DISPERSABLE TABLET PO SCH (06:21)
[2019-07-06] MEDS: PRENATAL VITAMINS W/ FOLIC ACID TABLET (FP) PO SCH (09:28)
[2019-07-06] MEDS: cloNIDine HCL 0.1 MG TABLET PO PRN ×2 (09:28→21:10)
[2019-07-06] MEDS: amLODIPine BESYLATE 5 MG TABLET (FP) PO SCH (09:28)
[2019-07-06] MEDS: hydrOXYzine PAMOATE 50 MG CAPSULE (FP) PO PRN ×3 (09:29→21:10)
[2019-07-06] MEDS: IBUPROFEN 400 MG TABLET (FP) PO PRN (09:29)
[2019-07-06] MEDS ORDERED: NICOTINE POLACRILEX 4 MG GUM BUC PRN (17:49)
[2019-07-06] MEDS: THIAMINE HCL 100 MG TABLET (FP) PO SCH (21:10)
[2019-07-06] MEDS: SUVOREXANT 10 MG TABLET PO PRN (21:10)
[2019-07-07] MEDS: METHADONE HCL 40 MG DISPERSABLE TABLET PO SCH (06:28)
[2019-07-07] MEDS: amLODIPine BESYLATE 5 MG TABLET (FP) PO SCH (10:34)
[2019-07-07] MEDS: PRENATAL VITAMINS W/ FOLIC ACID TABLET (FP) PO SCH (10:34)
[2019-07-07] MEDS: NICOTINE 21 MG/24 HOURS TOPICAL PATCH TD SCH (10:34)
[2019-07-07] MEDS: hydrOXYzine PAMOATE 50 MG CAPSULE (FP) PO PRN ×2 (10:35→15:59)
[2019-07-07] MEDS: IBUPROFEN 400 MG TABLET (FP) PO PRN (10:35)
[2019-07-07] MEDS: THIAMINE HCL 100 MG TABLET (FP) PO SCH (21:38)
[2019-07-07] MEDS: SUVOREXANT 10 MG TABLET PO PRN (21:40)
[2019-07-08] MEDS: METHADONE HCL 40 MG DISPERSABLE TABLET PO SCH (06:05)
[2019-07-08] MEDS: amLODIPine BESYLATE 5 MG TABLET (FP) PO SCH (10:44)
[2019-07-08] MEDS: PRENATAL VITAMINS W/ FOLIC ACID TABLET (FP) PO SCH (10:45)
[2019-07-08] MEDS: hydrOXYzine PAMOATE 50 MG CAPSULE (FP) PO PRN ×2 (10:45→17:05)
[2019-07-08] MEDS: NICOTINE 21 MG/24 HOURS TOPICAL PATCH TD SCH (10:45)
[2019-07-08] MEDS: THIAMINE HCL 100 MG TABLET (FP) PO SCH (21:15)
[2019-07-08] MEDS: IBUPROFEN 400 MG TABLET (FP) PO PRN (21:18)
[2019-07-08] MEDS: cloNIDine HCL 0.1 MG TABLET PO PRN (21:19)
[2019-07-09] MEDS: METHADONE HCL 40 MG DISPERSABLE TABLET PO SCH (06:30)
[2019-07-09] MEDS: cloNIDine HCL 0.1 MG TABLET PO PRN ×2 (06:31→21:24)
[2019-07-09] MEDS: amLODIPine BESYLATE 5 MG TABLET (FP) PO SCH (10:12)
[2019-07-09] MEDS: PRENATAL VITAMINS W/ FOLIC ACID TABLET (FP) PO SCH (10:12)
[2019-07-09] MEDS: NICOTINE 21 MG/24 HOURS TOPICAL PATCH TD SCH (10:12)
[2019-07-09] MEDS: THIAMINE HCL 100 MG TABLET (FP) PO SCH (21:24)
[2019-07-10] MEDS: METHADONE HCL 40 MG DISPERSABLE TABLET PO SCH (06:07)
[2019-07-10] MEDS: PRENATAL VITAMINS W/ FOLIC ACID TABLET (FP) PO SCH (09:41)
[2019-07-10] MEDS: amLODIPine BESYLATE 5 MG TABLET (FP) PO SCH (09:41)
[2019-07-10] MEDS: NICOTINE 21 MG/24 HOURS TOPICAL PATCH TD SCH (09:41)
--- NOTE | 2019-07-10 13:35 | PN ---
[place] Progress Note Note: Patient told database report writer that he wanted to be seen just to get Belsomra renewed
[2019-07-10] MEDS: THIAMINE HCL 100 MG TABLET (FP) PO SCH (21:15)
[2019-07-10] MEDS: cloNIDine HCL 0.1 MG TABLET PO PRN (21:15)
[2019-07-10] MEDS: hydrOXYzine PAMOATE 50 MG CAPSULE (FP) PO PRN (21:17)
[2019-07-10] MEDS ORDERED: SUVOREXANT 10 MG TABLET PO PRN (22:00)
[2019-07-11] MEDS: IBUPROFEN 400 MG TABLET (FP) PO PRN ×2 (06:25→21:18)
[2019-07-11] MEDS: cloNIDine HCL 0.1 MG TABLET PO PRN ×2 (06:26→21:18)
[2019-07-11] MEDS: METHADONE HCL 40 MG DISPERSABLE TABLET PO SCH (06:26)
[2019-07-11] MEDS: NICOTINE 21 MG/24 HOURS TOPICAL PATCH TD SCH (10:54)
[2019-07-11] MEDS: PRENATAL VITAMINS W/ FOLIC ACID TABLET (FP) PO SCH (10:54)
[2019-07-11] MEDS: amLODIPine BESYLATE 5 MG TABLET (FP) PO SCH (10:54)
[2019-07-11] MEDS: THIAMINE HCL 100 MG TABLET (FP) PO SCH (21:18)
[2019-07-11] MEDS: hydrOXYzine PAMOATE 50 MG CAPSULE (FP) PO PRN (21:19)
[2019-07-12] MEDS: METHADONE HCL 40 MG DISPERSABLE TABLET PO SCH (06:36)
[2019-07-12] MEDS: cloNIDine HCL 0.1 MG TABLET PO PRN ×2 (06:36→19:00)
[2019-07-12] MEDS: IBUPROFEN 400 MG TABLET (FP) PO PRN ×2 (06:36→19:01)
[2019-07-12] MEDS: NICOTINE 21 MG/24 HOURS TOPICAL PATCH TD SCH (10:58)
[2019-07-12] MEDS: amLODIPine BESYLATE 5 MG TABLET (FP) PO SCH (10:59)
[2019-07-12] MEDS: ACETAMINOPHEN 325 MG TABLET (FP) PO PRN ×2 (10:59→21:51)
[2019-07-12] MEDS: PRENATAL VITAMINS W/ FOLIC ACID TABLET (FP) PO SCH (10:59)
--- NOTE | 2019-07-12 12:53 | PN ---
[facility] Progress Note Note: 12:00 Dr. Clayton at [facility] called on 07/11/19 to speak with the Attending MD or National Investigative Producer Re: Toshia Rodger. Dr. Gonzalez's contact ph # given to Dr. Clayton who has directly spoken to Dr. Gonzalez Re: biopsy done at [facility]. Dr. Gonzalez has been informed today that patient wants to discuss his biopsy result. Vital Signs - 24 hr 07/11/19 07/12/19 07/12/19 20:55 00:30 03:27 Temperature Pulse Rate 55 L Respiratory 18 20 16 Rate Blood Pressure 148/75 07/12/19 07/12/19 07:11 07:13 Temperature 97.4 F L Pulse Rate 58 L 64 Respiratory 18 Rate Blood Pressure 152/75 163/82 Alert o x 3 nad oob ambulating with steady gait. Maintain safety Follow up with Dr. Gonzalez to speak to patient re: results of Biopsy.
--- NOTE | 2019-07-12 13:18 | PN ---
S Progress Note (SOAP) Subjective: Patient concerned about the mediastinal biopsy performed at [facility] while he was there. Patient seen in bed: alert and oriented x3 and in good spirits Objective: 07/12/19 13:14 Laboratory 07/05/19 07/05/19 07/06/19 08:30 16:20 06:19 POC Glucometer 94 UNITS UNITS 111 UNITS UNITS (80-120) (80-120) RPR Titer Nonreactive (NONREACTIVE) 07/08/19 06:08 POC Glucometer 107 UNITS UNITS (80-120) RPR Titer Assessment: 1. Mediastinal Mass 07/12/19 13:14 Plan: 1. Mediastinal mass: The pathology report as written and related to me by Dr. Clayton was that it was a benign fibrotic tumor. However, I explained to him that the sample size of the biopsy was very small and that from the pathology it was consistent with a fibroma. However, he needs to follow up with his physician if it continues to grow or he has any other symptoms as the sample size of the biopsy was small and could have missed something if the surrounding tissue contained other pathology. He will request for copy of this pathology results and follow up with his PMD. 15 minutes visit with patient at bedside and conversation and explanation of results. Dr. Gonzalez
[2019-07-12] MEDS: THIAMINE HCL 100 MG TABLET (FP) PO SCH (21:51)
[2019-07-12] MEDS: hydrOXYzine PAMOATE 50 MG CAPSULE (FP) PO PRN (21:51)
[2019-07-13] MEDS: METHADONE HCL 40 MG DISPERSABLE TABLET PO SCH (06:32)
[2019-07-13] MEDS: IBUPROFEN 400 MG TABLET (FP) PO PRN ×2 (06:33→21:13)
[2019-07-13] MEDS: cloNIDine HCL 0.1 MG TABLET PO PRN ×2 (06:33→21:13)
[2019-07-13] MEDS: amLODIPine BESYLATE 5 MG TABLET (FP) PO SCH (10:44)
[2019-07-13] MEDS: PRENATAL VITAMINS W/ FOLIC ACID TABLET (FP) PO SCH (10:44)
[2019-07-13] MEDS: NICOTINE 21 MG/24 HOURS TOPICAL PATCH TD SCH (10:45)
[2019-07-13] MEDS: ACETAMINOPHEN 325 MG TABLET (FP) PO PRN (10:45)
--- NOTE | 2019-07-13 14:34 | PN ---
[facility] Progress Note Note: Psychiatric nurse practitioner note: Belsomra 10mg HS PRN renewed X3 days. Verbal consent given.
[2019-07-13] MEDS: THIAMINE HCL 100 MG TABLET (FP) PO SCH (21:13)
[2019-07-13] MEDS: SUVOREXANT 10 MG TABLET PO PRN (21:14)
[2019-07-14] MEDS: METHADONE HCL 40 MG DISPERSABLE TABLET PO SCH (06:16)
[2019-07-14] MEDS: IBUPROFEN 400 MG TABLET (FP) PO PRN ×2 (06:17→21:12)
--- NOTE | 2019-07-14 08:26 | PN ---
[facility] Progress Note Note: Patient seen in breakfast room and asked to go back to his room to discuss the pathology report. After speaking to the hospitalist Dmitri Fall, patient was advised that the mass that was biopsied though appearing benign can transform to malignancy and that he should follow up with Dr. Sutton, the oncologist. I have written for Mr. Soares the address and suite number for Dr. Sutton at [facility]: [address] [place] [address]. I encouraged him to follow up upon discharge and make an appointment to see Dr. Sutton for further studies. Dr. Gonzalez
[2019-07-14] MEDS: cloNIDine HCL 0.1 MG TABLET PO PRN ×2 (09:04→21:11)
[2019-07-14] MEDS: PRENATAL VITAMINS W/ FOLIC ACID TABLET (FP) PO SCH (10:30)
[2019-07-14] MEDS: amLODIPine BESYLATE 5 MG TABLET (FP) PO SCH (10:30)
[2019-07-14] MEDS: NICOTINE 21 MG/24 HOURS TOPICAL PATCH TD SCH (10:31)
[2019-07-14] MEDS: ACETAMINOPHEN 325 MG TABLET (FP) PO PRN (16:56)
[2019-07-14] MEDS: SUVOREXANT 10 MG TABLET PO PRN (21:11)
[2019-07-14] MEDS: THIAMINE HCL 100 MG TABLET (FP) PO SCH (21:11)
[2019-07-15] MEDS: METHADONE HCL 40 MG DISPERSABLE TABLET PO SCH (06:14)
[2019-07-15] MEDS: cloNIDine HCL 0.1 MG TABLET PO PRN ×2 (06:18→21:23)
[2019-07-15] MEDS: IBUPROFEN 400 MG TABLET (FP) PO PRN ×2 (06:18→21:21)
[2019-07-15] MEDS: PRENATAL VITAMINS W/ FOLIC ACID TABLET (FP) PO SCH (10:26)
[2019-07-15] MEDS: amLODIPine BESYLATE 5 MG TABLET (FP) PO SCH (10:26)
[2019-07-15] MEDS: NICOTINE 21 MG/24 HOURS TOPICAL PATCH TD SCH (10:26)
[2019-07-15] MEDS: ACETAMINOPHEN 325 MG TABLET (FP) PO PRN (15:35)
[2019-07-15] MEDS: THIAMINE HCL 100 MG TABLET (FP) PO SCH (21:20)
[2019-07-15] MEDS: SUVOREXANT 10 MG TABLET PO PRN (21:25)
[2019-07-16] MEDS: cloNIDine HCL 0.1 MG TABLET PO PRN ×2 (06:29→22:05)
[2019-07-16] MEDS: IBUPROFEN 400 MG TABLET (FP) PO PRN ×2 (06:29→22:05)
[2019-07-16] MEDS: METHADONE HCL 40 MG DISPERSABLE TABLET PO SCH (06:30)
[2019-07-16] MEDS: PRENATAL VITAMINS W/ FOLIC ACID TABLET (FP) PO SCH (10:11)
[2019-07-16] MEDS: NICOTINE 21 MG/24 HOURS TOPICAL PATCH TD SCH (10:11)
[2019-07-16] MEDS: amLODIPine BESYLATE 5 MG TABLET (FP) PO SCH (10:11)
[2019-07-16] MEDS: ACETAMINOPHEN 325 MG TABLET (FP) PO PRN ×2 (12:28→18:27)
[2019-07-16] MEDS: THIAMINE HCL 100 MG TABLET (FP) PO SCH (22:05)
[2019-07-16] MEDS: hydrOXYzine PAMOATE 50 MG CAPSULE (FP) PO PRN (22:06)
[2019-07-17] MEDS: METHADONE HCL 40 MG DISPERSABLE TABLET PO SCH (06:40)
[2019-07-17] MEDS: cloNIDine HCL 0.1 MG TABLET PO PRN ×2 (06:44→21:39)
[2019-07-17] MEDS: IBUPROFEN 400 MG TABLET (FP) PO PRN ×2 (06:44→18:58)
[2019-07-17] MEDS: amLODIPine BESYLATE 5 MG TABLET (FP) PO SCH (10:38)
[2019-07-17] MEDS: NICOTINE 21 MG/24 HOURS TOPICAL PATCH TD SCH (10:38)
[2019-07-17] MEDS: PRENATAL VITAMINS W/ FOLIC ACID TABLET (FP) PO SCH (10:38)
[2019-07-17] MEDS: ACETAMINOPHEN 325 MG TABLET (FP) PO PRN (10:39)
[2019-07-17] MEDS ORDERED: IBUPROFEN 400 MG TABLET (FP) PO PRN (15:34)
[2019-07-17] MEDS: METHOCARBAMOL 500 MG TABLET PO PRN (21:39)
[2019-07-17] MEDS: SUVOREXANT 10 MG TABLET PO PRN (21:39)
[2019-07-17] MEDS: THIAMINE HCL 100 MG TABLET (FP) PO SCH (21:40)
[2019-07-18] MEDS ORDERED: METHADONE HCL 10 MG TABLET PO SCH (07:15)
[2019-07-18] MEDS: METHADONE HCL 40 MG DISPERSABLE TABLET PO SCH (09:18)
[2019-07-18] MEDS: cloNIDine HCL 0.1 MG TABLET PO PRN ×2 (09:19→21:46)
[2019-07-18] MEDS: PRENATAL VITAMINS W/ FOLIC ACID TABLET (FP) PO SCH (09:19)
[2019-07-18] MEDS: NICOTINE 21 MG/24 HOURS TOPICAL PATCH TD SCH (09:19)
[2019-07-18] MEDS: METHOCARBAMOL 500 MG TABLET PO PRN ×2 (09:19→19:07)
[2019-07-18] MEDS: amLODIPine BESYLATE 5 MG TABLET (FP) PO SCH (09:19)
[2019-07-18] MEDS: IBUPROFEN 400 MG TABLET (FP) PO PRN ×2 (09:20→21:46)
[2019-07-18] MEDS: SUVOREXANT 10 MG TABLET PO PRN (21:46)
[2019-07-18] MEDS: THIAMINE HCL 100 MG TABLET (FP) PO SCH (21:47)
[2019-07-19] MEDS: METHADONE HCL 40 MG DISPERSABLE TABLET PO SCH (06:36)
[2019-07-19] MEDS: IBUPROFEN 400 MG TABLET (FP) PO PRN ×2 (06:39→17:06)
[2019-07-19] MEDS: METHOCARBAMOL 500 MG TABLET PO PRN ×2 (06:39→17:06)
[2019-07-19] MEDS: PRENATAL VITAMINS W/ FOLIC ACID TABLET (FP) PO SCH (10:35)
[2019-07-19] MEDS: NICOTINE 21 MG/24 HOURS TOPICAL PATCH TD SCH (10:35)
[2019-07-19] MEDS: amLODIPine BESYLATE 5 MG TABLET (FP) PO SCH (10:35)
[2019-07-19] MEDS: ACETAMINOPHEN 325 MG TABLET (FP) PO PRN (10:37)
[2019-07-19] MEDS: hydrOXYzine PAMOATE 50 MG CAPSULE (FP) PO PRN (10:37)
[2019-07-19] MEDS: THIAMINE HCL 100 MG TABLET (FP) PO SCH (21:36)
[2019-07-19] MEDS: SUVOREXANT 10 MG TABLET PO PRN (21:37)
[2019-07-20] MEDS: METHADONE HCL 40 MG DISPERSABLE TABLET PO SCH (06:31)
[2019-07-20] MEDS: IBUPROFEN 400 MG TABLET (FP) PO PRN ×3 (06:35→21:56)
[2019-07-20] MEDS: cloNIDine HCL 0.1 MG TABLET PO PRN ×2 (06:35→21:54)
[2019-07-20] MEDS: PRENATAL VITAMINS W/ FOLIC ACID TABLET (FP) PO SCH (10:40)
[2019-07-20] MEDS: amLODIPine BESYLATE 5 MG TABLET (FP) PO SCH (10:40)
[2019-07-20] MEDS: NICOTINE 21 MG/24 HOURS TOPICAL PATCH TD SCH (10:40)
[2019-07-20] MEDS: METHOCARBAMOL 500 MG TABLET PO PRN ×2 (10:41→14:38)
[2019-07-20] MEDS: hydrOXYzine PAMOATE 50 MG CAPSULE (FP) PO PRN (14:38)
[2019-07-20] MEDS: THIAMINE HCL 100 MG TABLET (FP) PO SCH (21:53)
[2019-07-21] MEDS: cloNIDine HCL 0.1 MG TABLET PO PRN ×2 (06:49→21:43)
[2019-07-21] MEDS: IBUPROFEN 400 MG TABLET (FP) PO PRN (06:49)
[2019-07-21] MEDS: METHADONE HCL 40 MG DISPERSABLE TABLET PO SCH (06:50)
[2019-07-21] MEDS: NICOTINE 21 MG/24 HOURS TOPICAL PATCH TD SCH (10:34)
[2019-07-21] MEDS: PRENATAL VITAMINS W/ FOLIC ACID TABLET (FP) PO SCH (10:34)
[2019-07-21] MEDS: amLODIPine BESYLATE 5 MG TABLET (FP) PO SCH (10:34)
[2019-07-21] MEDS: MAGNESIUM HYDROX 2400MG/30ML ORAL SUSPENSION 30 ML CUP PO PRN (17:42)
[2019-07-21] MEDS: THIAMINE HCL 100 MG TABLET (FP) PO SCH (21:43)
[2019-07-21] MEDS: METHOCARBAMOL 500 MG TABLET PO PRN (21:43)
[2019-07-21] MEDS: SUVOREXANT 10 MG TABLET PO PRN (21:43)
[2019-07-21] MEDS: hydrOXYzine PAMOATE 50 MG CAPSULE (FP) PO PRN (21:44)
[2019-07-22] MEDS: METHOCARBAMOL 500 MG TABLET PO PRN (06:37)
[2019-07-22] MEDS: IBUPROFEN 400 MG TABLET (FP) PO PRN ×2 (06:37→21:49)
[2019-07-22] MEDS: cloNIDine HCL 0.1 MG TABLET PO PRN ×2 (06:38→21:50)
[2019-07-22] MEDS: METHADONE HCL 40 MG DISPERSABLE TABLET PO SCH (06:39)
[2019-07-22] MEDS: PRENATAL VITAMINS W/ FOLIC ACID TABLET (FP) PO SCH (10:32)
[2019-07-22] MEDS: amLODIPine BESYLATE 5 MG TABLET (FP) PO SCH (10:32)
[2019-07-22] MEDS: NICOTINE 21 MG/24 HOURS TOPICAL PATCH TD SCH (10:32)
[2019-07-22] MEDS: MAGNESIUM HYDROX 2400MG/30ML ORAL SUSPENSION 30 ML CUP PO PRN (17:23)
[2019-07-22] MEDS: SUVOREXANT 10 MG TABLET PO PRN (21:49)
[2019-07-22] MEDS: THIAMINE HCL 100 MG TABLET (FP) PO SCH (21:49)
[2019-07-23] MEDS: METHADONE HCL 40 MG DISPERSABLE TABLET PO SCH (06:48)
[2019-07-23] MEDS: METHOCARBAMOL 500 MG TABLET PO PRN ×2 (06:48→21:46)
[2019-07-23] MEDS: IBUPROFEN 400 MG TABLET (FP) PO PRN ×2 (06:48→21:46)
[2019-07-23] MEDS: cloNIDine HCL 0.1 MG TABLET PO PRN ×2 (06:48→21:46)
[2019-07-23] MEDS: NICOTINE 21 MG/24 HOURS TOPICAL PATCH TD SCH (10:26)
[2019-07-23] MEDS: PRENATAL VITAMINS W/ FOLIC ACID TABLET (FP) PO SCH (10:27)
[2019-07-23] MEDS: amLODIPine BESYLATE 5 MG TABLET (FP) PO SCH (10:27)
[2019-07-23] MEDS: ACETAMINOPHEN 325 MG TABLET (FP) PO PRN (10:28)
[2019-07-23] MEDS: SUVOREXANT 10 MG TABLET PO PRN (21:46)
[2019-07-23] MEDS: THIAMINE HCL 100 MG TABLET (FP) PO SCH (21:46)
[2019-07-24] MEDS: METHADONE HCL 40 MG DISPERSABLE TABLET PO SCH (06:49)
[2019-07-24] MEDS: IBUPROFEN 400 MG TABLET (FP) PO PRN ×2 (06:51→21:46)
[2019-07-24] MEDS: cloNIDine HCL 0.1 MG TABLET PO PRN ×2 (06:51→21:45)
[2019-07-24] MEDS: PRENATAL VITAMINS W/ FOLIC ACID TABLET (FP) PO SCH (09:22)
[2019-07-24] MEDS: amLODIPine BESYLATE 5 MG TABLET (FP) PO SCH (09:22)
[2019-07-24] MEDS: NICOTINE 21 MG/24 HOURS TOPICAL PATCH TD SCH (09:22)
[2019-07-24] MEDS: ACETAMINOPHEN 325 MG TABLET (FP) PO PRN (09:24)
[2019-07-24] MEDS: METHOCARBAMOL 500 MG TABLET PO PRN (21:45)
[2019-07-24] MEDS: THIAMINE HCL 100 MG TABLET (FP) PO SCH (21:46)
[2019-07-25] MEDS: IBUPROFEN 400 MG TABLET (FP) PO PRN ×2 (06:29→21:38)
[2019-07-25] MEDS: METHADONE HCL 40 MG DISPERSABLE TABLET PO SCH (06:29)
[2019-07-25] MEDS: METHOCARBAMOL 500 MG TABLET PO PRN (06:30)
[2019-07-25] MEDS: cloNIDine HCL 0.1 MG TABLET PO PRN ×2 (06:30→21:37)
[2019-07-25] MEDS: amLODIPine BESYLATE 5 MG TABLET (FP) PO SCH (10:41)
[2019-07-25] MEDS: PRENATAL VITAMINS W/ FOLIC ACID TABLET (FP) PO SCH (10:41)
[2019-07-25] MEDS: NICOTINE 21 MG/24 HOURS TOPICAL PATCH TD SCH (10:41)
[2019-07-25] MEDS: ACETAMINOPHEN 325 MG TABLET (FP) PO PRN (10:42)
[2019-07-25] MEDS: SUVOREXANT 10 MG TABLET PO PRN (21:37)
[2019-07-25] MEDS: THIAMINE HCL 100 MG TABLET (FP) PO SCH (21:37)
[2019-07-26] MEDS: METHADONE HCL 40 MG DISPERSABLE TABLET PO SCH (06:37)
[2019-07-26] MEDS: IBUPROFEN 400 MG TABLET (FP) PO PRN ×2 (06:37→21:36)
[2019-07-26] MEDS: METHOCARBAMOL 500 MG TABLET PO PRN ×2 (06:38→21:36)
[2019-07-26] MEDS: cloNIDine HCL 0.1 MG TABLET PO PRN ×2 (06:38→21:36)
[2019-07-26] MEDS: PRENATAL VITAMINS W/ FOLIC ACID TABLET (FP) PO SCH (10:29)
[2019-07-26] MEDS: amLODIPine BESYLATE 5 MG TABLET (FP) PO SCH (10:29)
[2019-07-26] MEDS: NICOTINE 21 MG/24 HOURS TOPICAL PATCH TD SCH (10:30)
[2019-07-26] MEDS: ACETAMINOPHEN 325 MG TABLET (FP) PO PRN (10:30)
[2019-07-26] MEDS: THIAMINE HCL 100 MG TABLET (FP) PO SCH (21:35)
[2019-07-26] MEDS: SUVOREXANT 10 MG TABLET PO PRN (21:36)
[2019-07-27] MEDS: METHADONE HCL 40 MG DISPERSABLE TABLET PO SCH (07:36)
[2019-07-27] MEDS: cloNIDine HCL 0.1 MG TABLET PO PRN ×2 (07:37→21:36)
[2019-07-27] MEDS: IBUPROFEN 400 MG TABLET (FP) PO PRN ×2 (07:37→21:36)
[2019-07-27] MEDS: METHOCARBAMOL 500 MG TABLET PO PRN ×2 (07:39→21:36)
[2019-07-27] MEDS: NICOTINE 21 MG/24 HOURS TOPICAL PATCH TD SCH (10:36)
[2019-07-27] MEDS: PRENATAL VITAMINS W/ FOLIC ACID TABLET (FP) PO SCH (10:36)
[2019-07-27] MEDS: amLODIPine BESYLATE 5 MG TABLET (FP) PO SCH (10:36)
[2019-07-27] MEDS: ACETAMINOPHEN 325 MG TABLET (FP) PO PRN (10:37)
[2019-07-27] MEDS: SUVOREXANT 10 MG TABLET PO PRN (21:36)
[2019-07-27] MEDS: THIAMINE HCL 100 MG TABLET (FP) PO SCH (21:37)
[2019-07-28] MEDS: cloNIDine HCL 0.1 MG TABLET PO PRN ×2 (06:27→21:17)
[2019-07-28] MEDS: METHOCARBAMOL 500 MG TABLET PO PRN ×2 (06:27→21:17)
[2019-07-28] MEDS: IBUPROFEN 400 MG TABLET (FP) PO PRN ×2 (06:27→18:14)
[2019-07-28] MEDS: METHADONE HCL 40 MG DISPERSABLE TABLET PO SCH (06:29)
[2019-07-28] MEDS: amLODIPine BESYLATE 5 MG TABLET (FP) PO SCH (10:49)
[2019-07-28] MEDS: NICOTINE 21 MG/24 HOURS TOPICAL PATCH TD SCH (10:49)
[2019-07-28] MEDS: PRENATAL VITAMINS W/ FOLIC ACID TABLET (FP) PO SCH (10:49)
[2019-07-28] MEDS: ACETAMINOPHEN 325 MG TABLET (FP) PO PRN ×2 (10:50→21:18)
[2019-07-28] MEDS: SUVOREXANT 10 MG TABLET PO PRN (21:17)
[2019-07-28] MEDS: THIAMINE HCL 100 MG TABLET (FP) PO SCH (21:20)
[2019-07-29] MEDS: cloNIDine HCL 0.1 MG TABLET PO PRN ×2 (06:21→21:51)
[2019-07-29] MEDS: IBUPROFEN 400 MG TABLET (FP) PO PRN ×2 (06:21→21:51)
[2019-07-29] MEDS: METHADONE HCL 40 MG DISPERSABLE TABLET PO SCH (06:22)
[2019-07-29] MEDS: NICOTINE 21 MG/24 HOURS TOPICAL PATCH TD SCH (09:54)
[2019-07-29] MEDS: PRENATAL VITAMINS W/ FOLIC ACID TABLET (FP) PO SCH (09:54)
[2019-07-29] MEDS: amLODIPine BESYLATE 5 MG TABLET (FP) PO SCH (09:54)
[2019-07-29] MEDS: ACETAMINOPHEN 325 MG TABLET (FP) PO PRN (09:55)
[2019-07-29] MEDS: THIAMINE HCL 100 MG TABLET (FP) PO SCH (21:49)
[2019-07-29] MEDS: METHOCARBAMOL 500 MG TABLET PO PRN (21:51)
[2019-07-29] MEDS: SUVOREXANT 10 MG TABLET PO PRN (21:51)
[2019-07-30] MEDS: cloNIDine HCL 0.1 MG TABLET PO PRN ×2 (06:53→21:40)
[2019-07-30] MEDS: IBUPROFEN 400 MG TABLET (FP) PO PRN ×2 (06:53→21:40)
[2019-07-30] MEDS: METHADONE HCL 40 MG DISPERSABLE TABLET PO SCH (06:54)
[2019-07-30] MEDS: METHOCARBAMOL 500 MG TABLET PO PRN ×2 (10:22→21:39)
[2019-07-30] MEDS: ACETAMINOPHEN 325 MG TABLET (FP) PO PRN (10:22)
[2019-07-30] MEDS: amLODIPine BESYLATE 5 MG TABLET (FP) PO SCH (10:22)
[2019-07-30] MEDS: PRENATAL VITAMINS W/ FOLIC ACID TABLET (FP) PO SCH (10:22)
[2019-07-30] MEDS: NICOTINE 21 MG/24 HOURS TOPICAL PATCH TD SCH (10:41)
[2019-07-30] MEDS: THIAMINE HCL 100 MG TABLET (FP) PO SCH (21:39)
[2019-07-31] MEDS: IBUPROFEN 400 MG TABLET (FP) PO PRN ×2 (06:23→21:34)
[2019-07-31] MEDS: METHOCARBAMOL 500 MG TABLET PO PRN ×2 (06:24→21:33)
[2019-07-31] MEDS: cloNIDine HCL 0.1 MG TABLET PO PRN ×2 (06:24→21:33)
[2019-07-31] MEDS: METHADONE HCL 40 MG DISPERSABLE TABLET PO SCH (06:43)
[2019-07-31 07:18] VITALS: TEMP 97.2
[2019-07-31] MEDS: NICOTINE 21 MG/24 HOURS TOPICAL PATCH TD SCH (10:42)
[2019-07-31] MEDS: amLODIPine BESYLATE 5 MG TABLET (FP) PO SCH (10:42)
[2019-07-31] MEDS: PRENATAL VITAMINS W/ FOLIC ACID TABLET (FP) PO SCH (10:42)
[2019-07-31] MEDS: ACETAMINOPHEN 325 MG TABLET (FP) PO PRN (10:43)
[2019-07-31] MEDS: THIAMINE HCL 100 MG TABLET (FP) PO SCH (21:33)
[2019-07-31] MEDS ORDERED: SUVOREXANT 10 MG TABLET PO PRN (22:00)
[2019-08-01] MEDS: IBUPROFEN 400 MG TABLET (FP) PO PRN (06:17)
[2019-08-01] MEDS: cloNIDine HCL 0.1 MG TABLET PO PRN (06:18)
[2019-08-01] MEDS: METHADONE HCL 40 MG DISPERSABLE TABLET PO SCH (06:18)
[2019-08-01] MEDS: METHOCARBAMOL 500 MG TABLET PO PRN (06:18)
[2019-08-01] MEDS: PRENATAL VITAMINS W/ FOLIC ACID TABLET (FP) PO SCH (09:58)
[2019-08-01] MEDS: amLODIPine BESYLATE 5 MG TABLET (FP) PO SCH (09:58)
[2019-08-01] MEDS: hydrOXYzine PAMOATE 50 MG CAPSULE (FP) PO PRN (10:00)
[2019-08-01] MEDS: NICOTINE 21 MG/24 HOURS TOPICAL PATCH TD SCH (10:00)
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
[2019-08-01 11:36] VITALS: BP 148/79; PULSE 69
== END 2019-08-01 13:12 | disposition home or self-care (01) | DRG 772 ==
LOC: YASAS 21:07 → Y5N 23:53
PROVIDERS: ADMIT Allergy & Immunology; ATTEND Allergy & Immunology
PROC: HZ42ZZZ Group Counseling for Substance Abuse Treatment, Cognitive-Behavioral (ICD-10-PCS; principal; 2019-07-04)
DX: F10.20 Alcohol dependence, uncomplicated (principal); F11.20 Opioid dependence, uncomplicated; F13.20 Sedative, hypnotic or anxiolytic dependence, uncomplicated; F17.210 Nicotine dependence, cigarettes, uncomplicated; F19.280 Other psychoactive substance dependence with psychoactive substance-induced anxiety disorder; F19.282 Other psychoactive substance dependence with psychoactive substance-induced sleep disorder; F31.9 Bipolar disorder, unspecified; F20.9 Schizophrenia, unspecified; I10 Essential (primary) hypertension; E11.9 Type 2 diabetes mellitus without complications; R91.8 Other nonspecific abnormal finding of lung field; Z79.1 Long term (current) use of non-steroidal anti-inflammatories (NSAID); Z96.641 Presence of right artificial hip joint; Z91.410 Personal history of adult physical and sexual abuse; Z62.810 Personal history of physical and sexual abuse in childhood; Z99.89 Dependence on other enabling machines and devices; Z56.0 Unemployment, unspecified; Z59.0 Homelessness
CPT/HCPCS: 36415; 80053; 81003; 82962; 85027; 86593; J0735

== ENCOUNTER 2020-04-12 12:09 | Inpatient (IN) | payer OTHER ==
[2020-04-12 13:01] VITALS: BMI 31.5
[2020-04-12] MEDS ORDERED: ACETAMINOPHEN 325 MG TABLET (FP) PO PRN ×2 (14:39)
[2020-04-12] MEDS ORDERED: ONDANSETRON *ODT* 4 MG TABLET SL PRN (14:39)
[2020-04-12] MEDS ORDERED: MENTHOL/PHENOL 1 EACH UD MM PRN (14:39)
[2020-04-12] MEDS ORDERED: MAGNESIUM CITRATE 300 ML BOTTLE PO PRN (14:39)
[2020-04-12] MEDS ORDERED: BISMUTH SUBSALICYLATE 262 MG/15 ML BTL PO PRN (14:39)
[2020-04-12] MEDS ORDERED: NICOTINE POLACRILEX 2 MG GUM BUC PRN (14:39)
[2020-04-12] MEDS ORDERED: MAG HYDROX/AL HYDROX/SIMETH 30 ML UNIT-DOSE CUP PO PRN (14:39)
[2020-04-12] MEDS ORDERED: MAGNESIUM HYDROX 2400MG/30ML ORAL SUSPENSION 30 ML CUP PO PRN (14:39)
[2020-04-12] MEDS ORDERED: LORazepam 1 MG TABLET PO PRN (14:39)
[2020-04-12] MEDS: amLODIPine BESYLATE 5 MG TABLET (FP) PO SCH (15:58)
[2020-04-12] MEDS: NICOTINE 14 MG/24 HOURS TOPICAL PATCH TD SCH (15:59)
[2020-04-12] MEDS: LORazepam 2 MG TABLET PO SCH ×2 (17:00→22:29)
[2020-04-12] MEDS: hydrOXYzine PAMOATE 25 MG CAPSULE (FP) PO SCH ×2 (17:00→22:28)
[2020-04-12] MEDS: METHOCARBAMOL 500 MG TABLET PO PRN (17:00)
[2020-04-12] MEDS: THIAMINE HCL 100 MG TABLET (FP) PO SCH (22:28)
[2020-04-12] MEDS: MELATONIN 5 MG TABLETS PO SCH (22:29)
[2020-04-13] MEDS: LORazepam 2 MG TABLET PO SCH ×4 (06:22→22:59)
[2020-04-13] MEDS: hydrOXYzine PAMOATE 25 MG CAPSULE (FP) PO SCH ×5 (06:22→22:59)
[2020-04-13 09:40] LABS: HEMATOCRIT 41.4 % (35.4-49); HEMOGLOBIN 13.6 GM/dL (11.7-16.9); MCH 27.2 pg (25.7-33.7); MCHC 32.8 g/dl (32.0-35.9); MEAN PLT VOLUME 8.1 fl (7.5-11.1); PLATELET COUNT 249 K/MM3 (134-434); RBC 4.99 M/mm3 (4.00-5.60); RDW 14.9 % (11.9-15.9); WHITE BLOOD COUNT 7.4 K/mm3 (4.0-10.0)
[2020-04-13 09:44] LABS: POTASSIUM 4.2 mmol/L (3.5-5.1)
[2020-04-13 09:51] LABS: ALBUMIN 3.4 g/dl (3.4-5.0); CALCIUM 9.1 mg/dL (8.5-10.1)
[2020-04-13 09:52] LABS: BLOOD UREA NITROGEN 19.2 mg/dL (7-18)
[2020-04-13 09:57] LABS: CREATININE 0.8 mg/dL (0.55-1.3)
[2020-04-13 09:58] LABS: BILIRUBIN,TOTAL 0.4 mg/dL (0.2-1); TOT PROT 6.6 g/dl (6.4-8.2)
[2020-04-13] MEDS: METHADONE HCL 40 MG DISPERSABLE TABLET PO SCH (10:25)
[2020-04-13] MEDS: NICOTINE 14 MG/24 HOURS TOPICAL PATCH TD SCH (10:26)
[2020-04-13] MEDS: PRENATAL VITAMINS W/ FOLIC ACID TABLET (FP) PO SCH (10:27)
[2020-04-13] MEDS: amLODIPine BESYLATE 5 MG TABLET (FP) PO SCH (10:27)
[2020-04-13] MEDS: MELATONIN 5 MG TABLETS PO SCH (22:59)
[2020-04-13] MEDS: THIAMINE HCL 100 MG TABLET (FP) PO SCH (22:59)
[2020-04-14] MEDS: METHADONE HCL 40 MG DISPERSABLE TABLET PO SCH (05:57)
[2020-04-14] MEDS: hydrOXYzine PAMOATE 25 MG CAPSULE (FP) PO SCH ×2 (05:57→10:09)
[2020-04-14] MEDS: LORazepam 1 MG TABLET PO SCH ×4 (05:57→22:18)
[2020-04-14] MEDS: PRENATAL VITAMINS W/ FOLIC ACID TABLET (FP) PO SCH (10:09)
[2020-04-14] MEDS: NICOTINE 14 MG/24 HOURS TOPICAL PATCH TD SCH (10:09)
[2020-04-14] MEDS: amLODIPine BESYLATE 5 MG TABLET (FP) PO SCH (10:09)
[2020-04-14] MEDS: IBUPROFEN 400 MG TABLET (FP) PO PRN (17:22)
[2020-04-14] MEDS: METHOCARBAMOL 500 MG TABLET PO PRN (17:23)
[2020-04-14] MEDS: THIAMINE HCL 100 MG TABLET (FP) PO SCH (22:18)
[2020-04-15] MEDS ORDERED: LORazepam 0.5 MG TABLET PO PRN
[2020-04-15] MEDS: METHADONE HCL 40 MG DISPERSABLE TABLET PO SCH (05:12)
[2020-04-15] MEDS: LORazepam 0.5 MG TABLET PO SCH ×4 (05:12→22:24)
[2020-04-15] MEDS: PRENATAL VITAMINS W/ FOLIC ACID TABLET (FP) PO SCH (10:25)
[2020-04-15] MEDS: NICOTINE 14 MG/24 HOURS TOPICAL PATCH TD SCH (10:25)
[2020-04-15] MEDS: amLODIPine BESYLATE 5 MG TABLET (FP) PO SCH (10:25)
[2020-04-15] MEDS: METHOCARBAMOL 500 MG TABLET PO PRN (12:05)
[2020-04-15] MEDS: IBUPROFEN 400 MG TABLET (FP) PO PRN (12:05)
[2020-04-15] MEDS ORDERED: cloNIDine HCL 0.1 MG TABLET PO ONE (20:40)
[2020-04-15] MEDS: THIAMINE HCL 100 MG TABLET (FP) PO SCH (22:24)
[2020-04-16] MEDS ORDERED: LORazepam 0.5 MG TABLET PO ONE (05:00)
[2020-04-16] MEDS: METHADONE HCL 40 MG DISPERSABLE TABLET PO SCH (05:34)
[2020-04-16 09:25] VITALS: BP 166/84; PULSE 88; TEMP 96.9
[2020-04-16] MEDS: PRENATAL VITAMINS W/ FOLIC ACID TABLET (FP) PO SCH (10:17)
[2020-04-16] MEDS: NICOTINE 14 MG/24 HOURS TOPICAL PATCH TD SCH (10:17)
[2020-04-16] MEDS: amLODIPine BESYLATE 5 MG TABLET (FP) PO SCH (10:17)
== END 2020-04-16 12:43 | disposition other institution (70) | DRG 773 ==
LOC: YASAS 12:09 → Y3N 14:09
PROVIDERS: ADMIT Allergy & Immunology; ATTEND Allergy & Immunology
PROC: HZ2ZZZZ Detoxification Services for Substance Abuse Treatment (ICD-10-PCS; principal; 2020-04-12)
DX: F10.230 Alcohol dependence with withdrawal, uncomplicated (principal); F11.20 Opioid dependence, uncomplicated; F13.230 Sedative, hypnotic or anxiolytic dependence with withdrawal, uncomplicated; F17.213 Nicotine dependence, cigarettes, with withdrawal; F19.24 Other psychoactive substance dependence with psychoactive substance-induced mood disorder; F32.9 Major depressive disorder, single episode, unspecified; I10 Essential (primary) hypertension; E11.9 Type 2 diabetes mellitus without complications; M16.12 Unilateral primary osteoarthritis, left hip; M54.89 Other dorsalgia; R91.8 Other nonspecific abnormal finding of lung field; R29.6 Repeated falls; Z96.641 Presence of right artificial hip joint; Z98.1 Arthrodesis status; Z99.89 Dependence on other enabling machines and devices; W06.XXXA Fall from bed, initial encounter; Y93.89 Activity, other specified; Y92.230 Patient room in hospital as the place of occurrence of the external cause; Y99.8 Other external cause status
CPT/HCPCS: 36415; 80053; 85027; 86780; 93005; 93010; C9803; J0735; U0003

== ENCOUNTER 2020-04-16 12:49 | Inpatient (IN) | payer OTHER ==
[~2020-04-16 12:49] MED LIST: LOPERAMIDE HCL 2 MG CAPSULE PO PRN; MAG HYDROX/AL HYDROX/SIMETH 30 ML UNIT-DOSE CUP PO PRN; MAGNESIUM HYDROX 2400MG/30ML ORAL SUSPENSION 30 ML CUP PO PRN; NICOTINE POLACRILEX 2 MG GUM BC PRN; guaiFENesin 200 MG/10 ML 10 ML UNIT-DOSE CUPS PO PRN
[2020-04-16] MEDS: MELATONIN 5 MG TABLETS PO SCH (22:16)
[2020-04-16] MEDS: THIAMINE HCL 100 MG TABLET (FP) PO SCH (22:16)
[2020-04-17] MEDS: METHADONE HCL 40 MG DISPERSABLE TABLET PO SCH (06:18)
[2020-04-17] MEDS ORDERED: amLODIPine BESYLATE 5 MG TABLET (FP) PO SCH (10:00)
[2020-04-17] MEDS: NICOTINE 14 MG/24 HOURS TOPICAL PATCH TD SCH (10:05)
[2020-04-17] MEDS: amLODIPine BESYLATE 10 MG TABLET (FP) PO SCH (10:05)
[2020-04-17] MEDS: PRENATAL VITAMINS W/ FOLIC ACID TABLET (FP) PO SCH (10:05)
[2020-04-17] MEDS ORDERED: cloNIDine HCL 0.1 MG TABLET PO ONE (11:26)
[2020-04-17] MEDS: THIAMINE HCL 100 MG TABLET (FP) PO SCH (21:05)
[2020-04-17] MEDS: hydrOXYzine PAMOATE 25 MG CAPSULE (FP) PO PRN (21:05)
[2020-04-17] MEDS: MELATONIN 5 MG TABLETS PO SCH (21:05)
[2020-04-18] MEDS: hydrOXYzine PAMOATE 25 MG CAPSULE (FP) PO PRN ×3 (02:00→10:08)
[2020-04-18] MEDS: METHADONE HCL 40 MG DISPERSABLE TABLET PO SCH (06:04)
[2020-04-18] MEDS: amLODIPine BESYLATE 10 MG TABLET (FP) PO SCH (10:08)
[2020-04-18] MEDS: NICOTINE 14 MG/24 HOURS TOPICAL PATCH TD SCH (10:08)
[2020-04-18] MEDS: PRENATAL VITAMINS W/ FOLIC ACID TABLET (FP) PO SCH (10:08)
[2020-04-18] MEDS: hydrOXYzine PAMOATE 50 MG CAPSULE (FP) PO PRN ×2 (13:19→21:45)
[2020-04-18] MEDS: THIAMINE HCL 100 MG TABLET (FP) PO SCH (21:42)
[2020-04-18] MEDS: SUVOREXANT 15 MG TABLET PO PRN (21:44)
[2020-04-19] MEDS: METHADONE HCL 40 MG DISPERSABLE TABLET PO SCH (06:33)
[2020-04-19] MEDS: PRENATAL VITAMINS W/ FOLIC ACID TABLET (FP) PO SCH (10:40)
[2020-04-19] MEDS: NICOTINE 14 MG/24 HOURS TOPICAL PATCH TD SCH (10:40)
[2020-04-19] MEDS: hydrOXYzine PAMOATE 50 MG CAPSULE (FP) PO PRN ×2 (10:40→21:37)
[2020-04-19] MEDS: amLODIPine BESYLATE 10 MG TABLET (FP) PO SCH (10:40)
[2020-04-19] MEDS: ACETAMINOPHEN 325 MG TABLET (FP) PO PRN (10:41)
[2020-04-19] MEDS: THIAMINE HCL 100 MG TABLET (FP) PO SCH (21:36)
[2020-04-19] MEDS: SUVOREXANT 15 MG TABLET PO PRN (21:37)
[2020-04-20] MEDS: hydrOXYzine PAMOATE 50 MG CAPSULE (FP) PO PRN ×3 (07:04→21:53)
[2020-04-20] MEDS: METHADONE HCL 40 MG DISPERSABLE TABLET PO SCH (07:04)
[2020-04-20] MEDS: PRENATAL VITAMINS W/ FOLIC ACID TABLET (FP) PO SCH (10:06)
[2020-04-20] MEDS: IBUPROFEN 400 MG TABLET (FP) PO PRN (10:06)
[2020-04-20] MEDS: NICOTINE 14 MG/24 HOURS TOPICAL PATCH TD SCH (10:06)
[2020-04-20] MEDS: amLODIPine BESYLATE 10 MG TABLET (FP) PO SCH (10:06)
[2020-04-20] MEDS: SUVOREXANT 15 MG TABLET PO PRN (21:53)
[2020-04-20] MEDS: THIAMINE HCL 100 MG TABLET (FP) PO SCH (21:54)
[2020-04-21] MEDS: METHADONE HCL 40 MG DISPERSABLE TABLET PO SCH (06:13)
[2020-04-21] MEDS: hydrOXYzine PAMOATE 50 MG CAPSULE (FP) PO PRN ×3 (06:14→21:11)
[2020-04-21] MEDS: amLODIPine BESYLATE 10 MG TABLET (FP) PO SCH (10:07)
[2020-04-21] MEDS: NICOTINE 14 MG/24 HOURS TOPICAL PATCH TD SCH (10:07)
[2020-04-21] MEDS: PRENATAL VITAMINS W/ FOLIC ACID TABLET (FP) PO SCH (10:07)
[2020-04-21] MEDS: THIAMINE HCL 100 MG TABLET (FP) PO SCH (21:11)
[2020-04-21] MEDS: SUVOREXANT 15 MG TABLET PO PRN (21:11)
[2020-04-21] MEDS: IBUPROFEN 400 MG TABLET (FP) PO PRN (21:11)
[2020-04-21] MEDS ORDERED: SUVOREXANT 10 MG TABLET PO PRN (22:00)
[2020-04-22] MEDS ORDERED: MASKS NR ONE (06:31)
[2020-04-22] MEDS: METHADONE HCL 40 MG DISPERSABLE TABLET PO SCH (06:32)
[2020-04-22] MEDS: IBUPROFEN 400 MG TABLET (FP) PO PRN ×2 (06:34→21:36)
[2020-04-22] MEDS: hydrOXYzine PAMOATE 50 MG CAPSULE (FP) PO PRN ×2 (06:36→21:36)
[2020-04-22] MEDS: PRENATAL VITAMINS W/ FOLIC ACID TABLET (FP) PO SCH (09:54)
[2020-04-22] MEDS: amLODIPine BESYLATE 10 MG TABLET (FP) PO SCH (09:54)
[2020-04-22] MEDS: NICOTINE 14 MG/24 HOURS TOPICAL PATCH TD SCH (09:54)
[2020-04-22] MEDS: MAGNESIUM CITRATE 300 ML BOTTLE PO PRN (12:15)
[2020-04-22] MEDS: SUVOREXANT 15 MG TABLET PO PRN (21:45)
[2020-04-22] MEDS: THIAMINE HCL 100 MG TABLET (FP) PO SCH (21:51)
[2020-04-23] MEDS: hydrOXYzine PAMOATE 50 MG CAPSULE (FP) PO PRN ×2 (06:19→21:14)
[2020-04-23] MEDS: IBUPROFEN 400 MG TABLET (FP) PO PRN ×2 (06:19→21:15)
[2020-04-23] MEDS: METHADONE HCL 40 MG DISPERSABLE TABLET PO SCH (06:22)
[2020-04-23] MEDS: amLODIPine BESYLATE 10 MG TABLET (FP) PO SCH (10:03)
[2020-04-23] MEDS: PRENATAL VITAMINS W/ FOLIC ACID TABLET (FP) PO SCH (10:03)
[2020-04-23] MEDS: ACETAMINOPHEN 325 MG TABLET (FP) PO PRN (10:03)
[2020-04-23] MEDS: NICOTINE 14 MG/24 HOURS TOPICAL PATCH TD SCH (10:05)
[2020-04-23] MEDS: THIAMINE HCL 100 MG TABLET (FP) PO SCH (21:14)
[2020-04-23] MEDS: SUVOREXANT 15 MG TABLET PO PRN (21:14)
[2020-04-24] MEDS ORDERED: METHADONE HCL 40 MG DISPERSABLE TABLET PO ONE (06:30)
[2020-04-24] MEDS: IBUPROFEN 400 MG TABLET (FP) PO PRN ×2 (06:40→21:45)
[2020-04-24] MEDS: hydrOXYzine PAMOATE 50 MG CAPSULE (FP) PO PRN ×3 (06:40→21:45)
[2020-04-24] MEDS ORDERED: MASKS NR ONE (09:03)
[2020-04-24] MEDS: amLODIPine BESYLATE 10 MG TABLET (FP) PO SCH (10:07)
[2020-04-24] MEDS: PRENATAL VITAMINS W/ FOLIC ACID TABLET (FP) PO SCH (10:07)
[2020-04-24] MEDS: NICOTINE 14 MG/24 HOURS TOPICAL PATCH TD SCH (10:07)
[2020-04-24] MEDS: SUVOREXANT 15 MG TABLET PO PRN (21:45)
[2020-04-24] MEDS: THIAMINE HCL 100 MG TABLET (FP) PO SCH (21:45)
[2020-04-25] MEDS: METHADONE HCL 40 MG DISPERSABLE TABLET PO SCH (06:27)
[2020-04-25] MEDS: IBUPROFEN 400 MG TABLET (FP) PO PRN ×2 (06:27→21:32)
[2020-04-25] MEDS: hydrOXYzine PAMOATE 50 MG CAPSULE (FP) PO PRN ×3 (06:29→21:32)
[2020-04-25] MEDS: amLODIPine BESYLATE 10 MG TABLET (FP) PO SCH (10:13)
[2020-04-25] MEDS: PRENATAL VITAMINS W/ FOLIC ACID TABLET (FP) PO SCH (10:13)
[2020-04-25] MEDS: ACETAMINOPHEN 325 MG TABLET (FP) PO PRN (10:13)
[2020-04-25] MEDS: NICOTINE 14 MG/24 HOURS TOPICAL PATCH TD SCH (10:14)
[2020-04-25] MEDS: MAGNESIUM CITRATE 300 ML BOTTLE PO PRN (15:40)
[2020-04-25] MEDS: SUVOREXANT 15 MG TABLET PO PRN (21:32)
[2020-04-25] MEDS: THIAMINE HCL 100 MG TABLET (FP) PO SCH (21:32)
[2020-04-26] MEDS: METHADONE HCL 40 MG DISPERSABLE TABLET PO SCH (06:18)
[2020-04-26] MEDS: hydrOXYzine PAMOATE 50 MG CAPSULE (FP) PO PRN ×3 (06:20→21:42)
[2020-04-26] MEDS: PRENATAL VITAMINS W/ FOLIC ACID TABLET (FP) PO SCH (10:32)
[2020-04-26] MEDS: ACETAMINOPHEN 325 MG TABLET (FP) PO PRN ×2 (10:33→21:43)
[2020-04-26] MEDS: amLODIPine BESYLATE 10 MG TABLET (FP) PO SCH (10:33)
[2020-04-26] MEDS: NICOTINE 14 MG/24 HOURS TOPICAL PATCH TD SCH (10:34)
[2020-04-26] MEDS: SUVOREXANT 15 MG TABLET PO PRN (21:42)
[2020-04-26] MEDS: THIAMINE HCL 100 MG TABLET (FP) PO SCH (21:43)
[2020-04-27] MEDS: IBUPROFEN 400 MG TABLET (FP) PO PRN (06:30)
[2020-04-27] MEDS: hydrOXYzine PAMOATE 50 MG CAPSULE (FP) PO PRN ×2 (06:30→21:16)
[2020-04-27] MEDS: METHADONE HCL 40 MG DISPERSABLE TABLET PO SCH (06:32)
[2020-04-27] MEDS: amLODIPine BESYLATE 10 MG TABLET (FP) PO SCH (09:55)
[2020-04-27] MEDS: PRENATAL VITAMINS W/ FOLIC ACID TABLET (FP) PO SCH (09:55)
[2020-04-27] MEDS: NICOTINE 14 MG/24 HOURS TOPICAL PATCH TD SCH (09:56)
[2020-04-27] MEDS: SUVOREXANT 15 MG TABLET PO PRN (21:14)
[2020-04-27] MEDS: THIAMINE HCL 100 MG TABLET (FP) PO SCH (21:14)
[2020-04-28] MEDS: IBUPROFEN 400 MG TABLET (FP) PO PRN (06:46)
[2020-04-28] MEDS: hydrOXYzine PAMOATE 50 MG CAPSULE (FP) PO PRN ×2 (06:47→21:57)
[2020-04-28] MEDS: METHADONE HCL 40 MG DISPERSABLE TABLET PO SCH (06:48)
[2020-04-28] MEDS: PRENATAL VITAMINS W/ FOLIC ACID TABLET (FP) PO SCH (10:04)
[2020-04-28] MEDS: amLODIPine BESYLATE 10 MG TABLET (FP) PO SCH (10:04)
[2020-04-28] MEDS: NICOTINE 14 MG/24 HOURS TOPICAL PATCH TD SCH (10:04)
[2020-04-28] MEDS: THIAMINE HCL 100 MG TABLET (FP) PO SCH (21:56)
[2020-04-28] MEDS: ACETAMINOPHEN 325 MG TABLET (FP) PO PRN (21:57)
[2020-04-28] MEDS: SUVOREXANT 15 MG TABLET PO PRN (21:58)
[2020-04-29] MEDS: METHADONE HCL 40 MG DISPERSABLE TABLET PO SCH (06:43)
[2020-04-29] MEDS: hydrOXYzine PAMOATE 50 MG CAPSULE (FP) PO PRN ×2 (06:43→21:18)
[2020-04-29] MEDS: ACETAMINOPHEN 325 MG TABLET (FP) PO PRN ×2 (06:44→21:18)
[2020-04-29] MEDS: PRENATAL VITAMINS W/ FOLIC ACID TABLET (FP) PO SCH (10:18)
[2020-04-29] MEDS: NICOTINE 14 MG/24 HOURS TOPICAL PATCH TD SCH (10:18)
[2020-04-29] MEDS: amLODIPine BESYLATE 10 MG TABLET (FP) PO SCH (10:18)
[2020-04-29] MEDS: IBUPROFEN 400 MG TABLET (FP) PO PRN (10:20)
[2020-04-29] MEDS: METHOCARBAMOL 500 MG TABLET PO PRN ×2 (10:20→21:18)
[2020-04-29] MEDS: THIAMINE HCL 100 MG TABLET (FP) PO SCH (21:18)
[2020-04-29] MEDS: SUVOREXANT 15 MG TABLET PO PRN (21:18)
[2020-04-29] MEDS: METHYL SALICYLATE/MENTHOL OINT 30 GM TUBE TP SCH (21:19)
[2020-04-30] MEDS: IBUPROFEN 400 MG TABLET (FP) PO PRN (06:44)
[2020-04-30] MEDS: hydrOXYzine PAMOATE 50 MG CAPSULE (FP) PO PRN ×3 (06:44→22:03)
[2020-04-30] MEDS: METHADONE HCL 40 MG DISPERSABLE TABLET PO SCH (06:45)
[2020-04-30] MEDS: PRENATAL VITAMINS W/ FOLIC ACID TABLET (FP) PO SCH (10:22)
[2020-04-30] MEDS: NICOTINE 14 MG/24 HOURS TOPICAL PATCH TD SCH (10:22)
[2020-04-30] MEDS: ACETAMINOPHEN 325 MG TABLET (FP) PO PRN ×2 (10:23→22:03)
[2020-04-30] MEDS: amLODIPine BESYLATE 10 MG TABLET (FP) PO SCH (10:23)
[2020-04-30] MEDS: METHOCARBAMOL 500 MG TABLET PO PRN ×2 (10:25→22:03)
[2020-04-30] MEDS: SUVOREXANT 15 MG TABLET PO PRN (22:03)
[2020-04-30] MEDS: THIAMINE HCL 100 MG TABLET (FP) PO SCH (22:03)
[2020-04-30] MEDS: METHYL SALICYLATE/MENTHOL OINT 30 GM TUBE TP SCH (22:04)
[2020-05-01] MEDS: hydrOXYzine PAMOATE 50 MG CAPSULE (FP) PO PRN ×3 (06:54→21:09)
[2020-05-01] MEDS: IBUPROFEN 400 MG TABLET (FP) PO PRN ×2 (06:54→21:09)
[2020-05-01] MEDS: METHADONE HCL 40 MG DISPERSABLE TABLET PO SCH (06:55)
[2020-05-01] MEDS: PRENATAL VITAMINS W/ FOLIC ACID TABLET (FP) PO SCH (10:51)
[2020-05-01] MEDS: METHOCARBAMOL 500 MG TABLET PO PRN ×2 (10:51→21:09)
[2020-05-01] MEDS: ACETAMINOPHEN 325 MG TABLET (FP) PO PRN (10:51)
[2020-05-01] MEDS: NICOTINE 14 MG/24 HOURS TOPICAL PATCH TD SCH (10:51)
[2020-05-01] MEDS: amLODIPine BESYLATE 10 MG TABLET (FP) PO SCH (10:51)
[2020-05-01] MEDS: THIAMINE HCL 100 MG TABLET (FP) PO SCH (21:09)
[2020-05-01] MEDS: SUVOREXANT 15 MG TABLET PO PRN (21:09)
[2020-05-01] MEDS: METHYL SALICYLATE/MENTHOL OINT 30 GM TUBE TP SCH (21:17)
[2020-05-02] MEDS: hydrOXYzine PAMOATE 50 MG CAPSULE (FP) PO PRN ×3 (06:50→22:22)
[2020-05-02] MEDS: IBUPROFEN 400 MG TABLET (FP) PO PRN (06:50)
[2020-05-02] MEDS: METHADONE HCL 40 MG DISPERSABLE TABLET PO SCH (06:50)
[2020-05-02] MEDS: amLODIPine BESYLATE 10 MG TABLET (FP) PO SCH (10:25)
[2020-05-02] MEDS: METHOCARBAMOL 500 MG TABLET PO PRN ×2 (10:25→22:22)
[2020-05-02] MEDS: ACETAMINOPHEN 325 MG TABLET (FP) PO PRN ×2 (10:26→22:22)
[2020-05-02] MEDS: PRENATAL VITAMINS W/ FOLIC ACID TABLET (FP) PO SCH (10:27)
[2020-05-02] MEDS: NICOTINE 14 MG/24 HOURS TOPICAL PATCH TD SCH (10:27)
[2020-05-02] MEDS: LIDOCAINE 5% TOPICAL PATCH TP SCH (15:22)
[2020-05-02] MEDS: METHYL SALICYLATE/MENTHOL OINT 30 GM TUBE TP SCH (22:22)
[2020-05-02] MEDS: LIDOCAINE PATCH REMOVAL MC SCH (22:22)
[2020-05-02] MEDS: THIAMINE HCL 100 MG TABLET (FP) PO SCH (22:22)
[2020-05-03] MEDS: hydrOXYzine PAMOATE 50 MG CAPSULE (FP) PO PRN ×2 (06:33→21:14)
[2020-05-03] MEDS: IBUPROFEN 400 MG TABLET (FP) PO PRN ×2 (06:33→21:13)
[2020-05-03] MEDS: METHADONE HCL 40 MG DISPERSABLE TABLET PO SCH (06:33)
[2020-05-03] MEDS: PRENATAL VITAMINS W/ FOLIC ACID TABLET (FP) PO SCH (10:47)
[2020-05-03] MEDS: amLODIPine BESYLATE 10 MG TABLET (FP) PO SCH (10:48)
[2020-05-03] MEDS: NICOTINE 14 MG/24 HOURS TOPICAL PATCH TD SCH (10:48)
[2020-05-03] MEDS: LIDOCAINE 5% TOPICAL PATCH TP SCH (10:48)
[2020-05-03] MEDS: METHOCARBAMOL 500 MG TABLET PO PRN (10:49)
[2020-05-03] MEDS: THIAMINE HCL 100 MG TABLET (FP) PO SCH (21:11)
[2020-05-03] MEDS: METHYL SALICYLATE/MENTHOL OINT 30 GM TUBE TP SCH (21:11)
[2020-05-03] MEDS: LIDOCAINE PATCH REMOVAL MC SCH (21:12)
[2020-05-03] MEDS: SUVOREXANT 15 MG TABLET PO PRN (21:13)
[2020-05-04] MEDS: hydrOXYzine PAMOATE 50 MG CAPSULE (FP) PO PRN ×2 (07:10→21:40)
[2020-05-04] MEDS: METHADONE HCL 40 MG DISPERSABLE TABLET PO SCH (07:10)
[2020-05-04] MEDS: METHOCARBAMOL 500 MG TABLET PO PRN ×2 (07:12→21:40)
[2020-05-04] MEDS: IBUPROFEN 400 MG TABLET (FP) PO PRN ×2 (07:12→18:45)
[2020-05-04] MEDS: MAGNESIUM CITRATE 300 ML BOTTLE PO PRN (07:15)
[2020-05-04] MEDS: NICOTINE 14 MG/24 HOURS TOPICAL PATCH TD SCH (10:31)
[2020-05-04] MEDS: PRENATAL VITAMINS W/ FOLIC ACID TABLET (FP) PO SCH (10:31)
[2020-05-04] MEDS: LIDOCAINE 5% TOPICAL PATCH TP SCH (10:31)
[2020-05-04] MEDS: amLODIPine BESYLATE 10 MG TABLET (FP) PO SCH (10:31)
[2020-05-04] MEDS: ACETAMINOPHEN 325 MG TABLET (FP) PO PRN ×2 (10:33→21:40)
[2020-05-04] MEDS: SUVOREXANT 15 MG TABLET PO PRN (21:40)
[2020-05-04] MEDS: THIAMINE HCL 100 MG TABLET (FP) PO SCH (21:40)
[2020-05-04] MEDS: LIDOCAINE PATCH REMOVAL MC SCH (21:42)
[2020-05-04] MEDS: METHYL SALICYLATE/MENTHOL OINT 30 GM TUBE TP SCH (21:42)
[2020-05-05] MEDS: METHADONE HCL 40 MG DISPERSABLE TABLET PO SCH (07:17)
[2020-05-05] MEDS: hydrOXYzine PAMOATE 50 MG CAPSULE (FP) PO PRN ×2 (07:17→21:14)
[2020-05-05] MEDS: IBUPROFEN 400 MG TABLET (FP) PO PRN ×2 (07:25→21:13)
[2020-05-05] MEDS: METHOCARBAMOL 500 MG TABLET PO PRN ×2 (07:25→21:14)
[2020-05-05] MEDS: PRENATAL VITAMINS W/ FOLIC ACID TABLET (FP) PO SCH (10:53)
[2020-05-05] MEDS: amLODIPine BESYLATE 10 MG TABLET (FP) PO SCH (10:53)
[2020-05-05] MEDS: LIDOCAINE 5% TOPICAL PATCH TP SCH (10:53)
[2020-05-05] MEDS: ACETAMINOPHEN 325 MG TABLET (FP) PO PRN (10:54)
[2020-05-05] MEDS: NICOTINE 14 MG/24 HOURS TOPICAL PATCH TD SCH (10:55)
[2020-05-05] MEDS: SUVOREXANT 15 MG TABLET PO PRN (21:14)
[2020-05-05] MEDS: THIAMINE HCL 100 MG TABLET (FP) PO SCH (21:14)
[2020-05-05] MEDS: LIDOCAINE PATCH REMOVAL MC SCH (21:32)
[2020-05-05] MEDS: METHYL SALICYLATE/MENTHOL OINT 30 GM TUBE TP SCH (21:32)
[2020-05-06] MEDS: IBUPROFEN 400 MG TABLET (FP) PO PRN ×2 (06:49→21:38)
[2020-05-06] MEDS: METHOCARBAMOL 500 MG TABLET PO PRN ×2 (06:49→21:38)
[2020-05-06] MEDS: METHADONE HCL 40 MG DISPERSABLE TABLET PO SCH (06:50)
[2020-05-06] MEDS: NICOTINE 14 MG/24 HOURS TOPICAL PATCH TD SCH (10:45)
[2020-05-06] MEDS: PRENATAL VITAMINS W/ FOLIC ACID TABLET (FP) PO SCH (10:46)
[2020-05-06] MEDS: amLODIPine BESYLATE 10 MG TABLET (FP) PO SCH (10:46)
[2020-05-06] MEDS: LIDOCAINE 5% TOPICAL PATCH TP SCH (10:46)
[2020-05-06] MEDS: ACETAMINOPHEN 325 MG TABLET (FP) PO PRN (10:48)
[2020-05-06] MEDS: LIDOCAINE PATCH REMOVAL MC SCH (21:38)
[2020-05-06] MEDS: THIAMINE HCL 100 MG TABLET (FP) PO SCH (21:38)
[2020-05-06] MEDS: METHYL SALICYLATE/MENTHOL OINT 30 GM TUBE TP SCH (21:38)
[2020-05-06] MEDS: hydrOXYzine PAMOATE 50 MG CAPSULE (FP) PO PRN (21:38)
[2020-05-07] MEDS: IBUPROFEN 400 MG TABLET (FP) PO PRN (06:20)
[2020-05-07] MEDS: METHADONE HCL 40 MG DISPERSABLE TABLET PO SCH (06:20)
[2020-05-07] MEDS: hydrOXYzine PAMOATE 50 MG CAPSULE (FP) PO PRN (06:20)
[2020-05-07 07:08] VITALS: TEMP 98
[2020-05-07] MEDS: amLODIPine BESYLATE 10 MG TABLET (FP) PO SCH (09:26)
[2020-05-07] MEDS: PRENATAL VITAMINS W/ FOLIC ACID TABLET (FP) PO SCH (09:26)
[2020-05-07] MEDS: LIDOCAINE 5% TOPICAL PATCH TP SCH (09:27)
[2020-05-07] MEDS: NICOTINE 14 MG/24 HOURS TOPICAL PATCH TD SCH (09:49)
[2020-05-07] MEDS ORDERED: SUVOREXANT 10 MG TABLET PO PRN (09:58)
[2020-05-07 10:18] VITALS: BP 144/78; PULSE 92
== END 2020-05-07 09:48 | disposition home or self-care (01) | DRG 772 ==
LOC: YASAS 12:49 → Y5N 12:56
PROVIDERS: ADMIT Allergy & Immunology; ATTEND Allergy & Immunology
PROC: HZ42ZZZ Group Counseling for Substance Abuse Treatment, Cognitive-Behavioral (ICD-10-PCS; principal; 2020-04-16)
DX: F10.20 Alcohol dependence, uncomplicated (principal); F11.20 Opioid dependence, uncomplicated; F13.20 Sedative, hypnotic or anxiolytic dependence, uncomplicated; F14.20 Cocaine dependence, uncomplicated; F17.210 Nicotine dependence, cigarettes, uncomplicated; F19.280 Other psychoactive substance dependence with psychoactive substance-induced anxiety disorder; F19.282 Other psychoactive substance dependence with psychoactive substance-induced sleep disorder; I10 Essential (primary) hypertension; R26.2 Difficulty in walking, not elsewhere classified; Z99.89 Dependence on other enabling machines and devices; Z96.641 Presence of right artificial hip joint; Z98.1 Arthrodesis status; Z62.810 Personal history of physical and sexual abuse in childhood
CPT/HCPCS: C9803; J0735; U0003